=== PATIENT | female | born 1965 | race African-American/Black ===

== ENCOUNTER 2021-01-18 13:50 | Inpatient (IN) | payer OTHER ==
[2021-01-18] MEDS ORDERED: Acetaminophen 500 MG TAB ONE (15:36)
[2021-01-18 15:49] LABS: #Monocytes 0.3 10x3/uL (0.0-1.1); #Neutrophils 8.7 10x3/uL (1.5-8.4); %Basophils 0.1 % (0.0-2.0); %Lymphocytes 6.3 % (18.0-47.0); %Monocytes 3.5 % (0.0-10.0); %Neutrophils 89.5 % (40.0-75.0); Hemoglobin 8.5 g/dL (12.0-15.5); Mean Corpuscular HGB CONC 32.3 g/dL (32.0-36.0); Mean Corpuscular Hemoglobin 27.6 pg (27.0-33.0); Mean Corpuscular Volume 85.4 fl (81.6-98.3); Mean Platelet Volume 9.4 fl (7.4-10.4); Platelet Count 230 10x3/uL (150-450); RBC Distribution Width 14.4 % (11.5-14.5); Red Blood Cell (RBC) Count 3.08 10x6/uL (3.90-5.03); White Blood Cell (WBC) Count 9.8 10x3/uL (3.5-10.5)
[2021-01-18] MEDS ORDERED: Rocuronium Bromide 10 MG/ML (10ML VIAL) ONE (15:49)
[2021-01-18 16:00] LABS: ALT (SGPT) 85 U/L (8-55); AST (SGOT) 114 U/L (5-34); Albumin 3.4 g/dL (3.5-5.0); Alkaline Phosphatase 113 U/L (40-110); Anion Gap 21 mmol/L (10-20); BUN (Urea Nitrogen) 96 mg/dL (9.8-20.1); Bilirubin, Total 0.7 mg/dL (0.2-1.2); Calc. Creatinine Clearance 0 mL/min (70-130); Calcium 8.3 mg/dL (7.8-10.44); Carbon Dioxide 16 mmol/L (22-29); Chloride 100 mmol/L (98-107); Globulin 3.8 g/dL (2.4-3.5); Glucose 208 mg/dL (70-105); Potassium 4.4 mmol/L (3.5-5.1); Protein, Total 7.2 g/dL (6.0-8.3); Sodium 133 mmol/L (136-145)
[2021-01-18 16:23] LABS: CKMB 1.4 ng/mL (0-6.6)
[2021-01-18] MEDS ORDERED: cefTRIAXone\\ROCEPHIN 1 GM VIAL ONE (17:15)
[2021-01-18] MEDS ORDERED: Azithromycin 500 MG VIAL ONE (17:15)
[2021-01-18 17:20] LABS: Bilirubin Neg (Negative); Blood, Urine Negative (Negative); Clarity Cloudy (Clear); Glucose, Urine (Dipstick) Normal (Negative); Ketone, Urine Negative (Negative); Leukocyte 25 (Negative); Nitrite Negative (Negative); Protein, Urine (Dipstick) 500 mg/dl (Neg-Trace); Specific Gravity, Urine 1.025 (1.002-1.036); Urobilinogen Normal mg/dL (Less than 2)
[2021-01-18 18:02] LABS: SARS-CoV-2 NAA Rapid Test DETECTED (NotDetected)
[2021-01-18 18:19] LABS: Bacteria/HPF 1+ HPF (None Seen); RBC/HPF 0-3 HPF (0-3); Squamous Epithelial 0-3 HPF (0-3); Transitional Epithelial 0-3 HPF (None Seen); WBC/HPF 0-3 HPF (0-3)
[2021-01-18 18:20] LABS: Mucous/LPF Rare LPF (<2+)
[2021-01-18] MEDS ORDERED: Calcium Carbonate 500 MG ChewTAB PO PRN (20:25)
[2021-01-18] MEDS ORDERED: Guaifenesin DM 100-10/5 ML UDCUP PO PRN (20:25)
[2021-01-18] MEDS ORDERED: Dextrose 5% in Water 1,000 ML IV PRN (20:25)
[2021-01-18] MEDS ORDERED: Zolpidem Tartrate 5 MG TAB PO PRN (20:25)
[2021-01-18] MEDS ORDERED: Senokot S 8.6-50 MG TAB PO PRN (20:25)
[2021-01-18] MEDS ORDERED: HYDROcodone/Acetaminophen 5/325 mg Tablet PO PRN (20:25)
[2021-01-18] MEDS ORDERED: Ondansetron PF 4 MG/2 ML Vial IVP PRN (20:25)
[2021-01-18] MEDS ORDERED: Ventolin HFA Inhaler 60 PUFF INHALER INH PRN (20:32)
[2021-01-18] MEDS ORDERED: Dexamethasone 10 MG/ML VIAL ONE (21:08)
[2021-01-18] MEDS ORDERED: Sodium Bicarbonate 75 MEQ in Sodium Chloride 0.45% 1,000 ML IV SCH (22:30)
[2021-01-18] MEDS ORDERED: Dexamethasone 4 mg/ml Vial SLOW IVP SCH (22:30)
[2021-01-18 23:46] LABS: CKMB 2.5 ng/mL (0-6.6)
[2021-01-19 00:35] LABS: Legionella Urinary Ag Negative (Negative)
[2021-01-19 00:36] LABS: Strep pneumo Urine Ag NEGATIVE (NEGATIVE)
[2021-01-19 04:39] LABS: ALT (SGPT) 90 U/L (8-55); AST (SGOT) 115 U/L (5-34); Albumin 3.1 g/dL (3.5-5.0); Alkaline Phosphatase 107 U/L (40-110); Anion Gap 21 mmol/L (10-20); BUN (Urea Nitrogen) 99 mg/dL (9.8-20.1); Bilirubin, Total 0.6 mg/dL (0.2-1.2); CK (CPK) 248 U/L (29-168); CRP (Inflammatory) 21.39 mg/dL (= or < 0.5); Calc. Creatinine Clearance 0 mL/min (70-130); Calcium 8.7 mg/dL (7.8-10.44); Carbon Dioxide 14 mmol/L (22-29); Chloride 103 mmol/L (98-107); Cholesterol 113 mg/dl (< 200 Desired); Glucose 287 mg/dL (70-105); HDL Cholesterol 38 mg/dL (>60 Neg Risk); Iron 16 ug/dL (50-170); Iron Binding Capacity, Total 176 mcg/dL (265-497); LDL Cholesterol, Calculated 51 mg/dL; Potassium 4.4 mmol/L (3.5-5.1); Sodium 134 mmol/L (136-145); Triglycerides 119 mg/dL (Less than 150)
[2021-01-19 04:44] LABS: #Monocytes 0.3 10x3/uL (0.0-1.1); #Neutrophils 10.3 10x3/uL (1.5-8.4); %Basophils 0.1 % (0.0-2.0); %Lymphocytes 5.1 % (18.0-47.0); %Monocytes 2.5 % (0.0-10.0); %Neutrophils 91.6 % (40.0-75.0); Hemoglobin 8.2 g/dL (12.0-15.5); Mean Corpuscular HGB CONC 32.2 g/dL (32.0-36.0); Mean Corpuscular Hemoglobin 27.3 pg (27.0-33.0); Mean Platelet Volume 10.1 fl (7.4-10.4); Platelet Count 249 10x3/uL (150-450); RBC Distribution Width 14.4 % (11.5-14.5); White Blood Cell (WBC) Count 11.2 10x3/uL (3.5-10.5)
[2021-01-19 05:01] LABS: Globulin 4.2 g/dL (2.4-3.5); Protein, Total 7.3 g/dL (6.0-8.3)
[2021-01-19] MEDS ORDERED: Sodium Bicarbonate 150 MEQ in Sterile Water Injection 1,000 ML IV SCH (05:30)
[2021-01-19 05:31] LABS: Ferritin 2963.35 ng/mL (10-291)
[2021-01-19 07:09] LABS: CKMB 3.4 ng/mL (0-6.6)
[2021-01-19 09:51] LABS: Actual Bicarbonate (HCO3v) 15 mEq/L (22-28); Base Excess -10.4 mEq/L (-2.0 to +3.0); Calcium, Ionized (venous) 1.03 mmol/L (1.16-1.32); Chloride (VBG) 103 mmol/L (98-106); Hemoglobin (Hb) 9.2 g/dL (11.7-16.0); Potassium (VBG) 4.27 mmol/L (3.70-5.30); Puncture Site Other Site; RapidComm Collect By CBN; Sodium 131.5 mmol/L (133-146); pH (venous) 7.31 (7.32-7.43)
[2021-01-19 11:26] LABS: Hemoglobin A1c 5.5 % (4.0-6.0)
[2021-01-19] MEDS ORDERED: Iron Sucrose Complex 100 MG in Sodium Chloride 0.9% 100 ML IVPB SCH (12:30)
[2021-01-19] MEDS ORDERED: Insulin Regular 300 UNITS/3 ML VIAL IVP SCH (13:00)
[2021-01-19] MEDS: Heparin 5,000 UNITS/ML VIAL SC SCH ×4 (13:25→20:21)
[2021-01-19] MEDS: Atorvastatin Calcium 10 MG TAB PO SCH ×2 (13:25→20:21)
[2021-01-19] MEDS: Lantus 1000 UNITS/10 ML VIAL SC SCH ×2 (13:25→23:07)
[2021-01-19] MEDS: Nicotine 21 MG PATCH TD SCH ×2 (13:26→23:12)
[2021-01-19] MEDS: Sodium Bicarbonate Tab 325 MG TAB PO SCH ×4 (13:26→20:21)
[2021-01-19 14:40] LABS: Creatinine, Urine 246.04 mg/dL (47-110)
[2021-01-19] MEDS: Aspirin 81 mg Enteric Coated Tablet PO SCH (15:49)
[2021-01-19] MEDS: Ascorbic Acid 500 mg Chewable Tablet PO SCH (15:49)
[2021-01-19] MEDS: Dexamethasone 4 mg/ml Vial SLOW IVP SCH (15:49)
[2021-01-19] MEDS: Cholecalciferol 1,000 UNITS (25 MCG) TAB PO SCH (15:49)
[2021-01-19] MEDS: Folic Acid/Vit B Comp W-C PO SCH (15:49)
[2021-01-19] MEDS ORDERED: Iron, Sodium Ferric Gluconate 125 MG in Sodium Chloride 0.9% 100 ML IVPB SCH (17:00)
[2021-01-19] MEDS: HumaLOG 300 UNITS/3 ML VIAL SC PRN ×2 (17:12→23:08)
[2021-01-20] MEDS: HumaLOG 300 UNITS/3 ML VIAL SC PRN ×4 (04:00→22:36)
[2021-01-20 06:25] LABS: Hemoglobin 8.4 g/dL (12.0-15.5); Mean Corpuscular HGB CONC 32.3 g/dL (32.0-36.0); Mean Corpuscular Hemoglobin 27.1 pg (27.0-33.0); Mean Corpuscular Volume 83.9 fl (81.6-98.3); Mean Platelet Volume 10.2 fl (7.4-10.4); Platelet Count 309 10x3/uL (150-450); RBC Distribution Width 14.2 % (11.5-14.5); White Blood Cell (WBC) Count 14.8 10x3/uL (3.5-10.5)
[2021-01-20 06:30] LABS: ALT (SGPT) 77 U/L (8-55); AST (SGOT) 66 U/L (5-34); Alkaline Phosphatase 121 U/L (40-110); Anion Gap 20 mmol/L (10-20); BUN (Urea Nitrogen) 113 mg/dL (9.8-20.1); Bilirubin, Total 0.4 mg/dL (0.2-1.2); CRP (Inflammatory) 19.26 mg/dL (= or < 0.5); Calc. Creatinine Clearance 11 mL/min (70-130); Calcium 8.8 mg/dL (7.8-10.44); Carbon Dioxide 15 mmol/L (22-29); Chloride 101 mmol/L (98-107); Globulin 4.2 g/dL (2.4-3.5); Glucose 464 mg/dL (70-105); Potassium 3.8 mmol/L (3.5-5.1); Protein, Total 7.2 g/dL (6.0-8.3); Sodium 132 mmol/L (136-145)
[2021-01-20 08:33] LABS: MDiff Complete? YES
[2021-01-20 08:36] LABS: Band 2 % (5-11); Lymphocytes 7 % (21-51); Monocytes 2 % (0-10); Neutrophil 89 % (42-75)
[2021-01-20 08:37] LABS: Platelet Morphology Comment Appears Adequate
[2021-01-20] MEDS ORDERED: Lantus 1000 UNITS/10 ML VIAL SC SCH (10:15)
[2021-01-20] MEDS: Sodium Bicarbonate 150 MEQ in Sterile Water Injection 1,000 ML IV SCH (10:17)
[2021-01-20] MEDS: Ascorbic Acid 500 mg Chewable Tablet PO SCH (10:18)
[2021-01-20] MEDS: Aspirin 81 mg Enteric Coated Tablet PO SCH (10:18)
[2021-01-20] MEDS: Dexamethasone 4 mg/ml Vial SLOW IVP SCH (10:18)
[2021-01-20] MEDS: Cholecalciferol 1,000 UNITS (25 MCG) TAB PO SCH (10:18)
[2021-01-20] MEDS: Sodium Bicarbonate Tab 325 MG TAB PO SCH ×3 (10:18→22:34)
[2021-01-20] MEDS: Heparin 5,000 UNITS/ML VIAL SC SCH ×3 (10:19→22:33)
[2021-01-20] MEDS: Folic Acid/Vit B Comp W-C PO SCH (10:19)
[2021-01-20 17:51] LABS: Hemoglobin 9.3 g/dL (12.0-15.5); Mean Corpuscular HGB CONC 33.7 g/dL (32.0-36.0); Mean Corpuscular Hemoglobin 27.5 pg (27.0-33.0); Mean Corpuscular Volume 81.7 fl (81.6-98.3); Platelet Count 323 10x3/uL (150-450); RBC Distribution Width 13.6 % (11.5-14.5); Red Blood Cell (RBC) Count 3.38 10x6/uL (3.90-5.03); White Blood Cell (WBC) Count 18.6 10x3/uL (3.5-10.5)
[2021-01-20 18:08] LABS: ALT (SGPT) 81 U/L (8-55); AST (SGOT) 70 U/L (5-34); Albumin 3.2 g/dL (3.5-5.0); Alkaline Phosphatase 129 U/L (40-110); Anion Gap 23 mmol/L (10-20); BUN (Urea Nitrogen) 113 mg/dL (9.8-20.1); Bilirubin, Total 0.5 mg/dL (0.2-1.2); Calc. Creatinine Clearance 11 mL/min (70-130); Calcium 9.1 mg/dL (7.8-10.44); Carbon Dioxide 17 mmol/L (22-29); Chloride 97 mmol/L (98-107); Globulin 4.8 g/dL (2.4-3.5); Glucose 497 mg/dL (70-105); Magnesium 1.8 mg/dL (1.6-2.6); Potassium 3.9 mmol/L (3.5-5.1); Sodium 133 mmol/L (136-145)
[2021-01-20 20:17] LABS: Band 11 % (5-11); Lymphocytes 6 % (21-51); Monocytes 2 % (0-10)
[2021-01-20 20:18] LABS: MDiff Complete? YES; Mean Platelet Volume 10.3 fl (7.4-10.4)
[2021-01-20 20:19] LABS: Neutrophil 81 % (42-75); Platelet Morphology Comment Appears Adequate
[2021-01-20] MEDS: Atorvastatin Calcium 10 MG TAB PO SCH (22:34)
[2021-01-20] MEDS: Lantus 1000 UNITS/10 ML VIAL SC SCH (22:35)
[2021-01-21] MEDS: HumaLOG 300 UNITS/3 ML VIAL SC PRN ×3 (05:28→18:07)
[2021-01-21] MEDS: Sodium Bicarbonate 150 MEQ in Sterile Water Injection 1,000 ML IV SCH (05:29)
[2021-01-21] MEDS: Nicotine 21 MG PATCH TD SCH (06:14)
[2021-01-21] MEDS: Dexamethasone 4 mg/ml Vial SLOW IVP SCH (09:55)
[2021-01-21] MEDS: Heparin 5,000 UNITS/ML VIAL SC SCH ×3 (09:55→20:39)
[2021-01-21] MEDS: Aspirin 81 mg Enteric Coated Tablet PO SCH (09:57)
[2021-01-21] MEDS: Ascorbic Acid 500 mg Chewable Tablet PO SCH (09:57)
[2021-01-21] MEDS: Cholecalciferol 1,000 UNITS (25 MCG) TAB PO SCH (09:57)
[2021-01-21] MEDS: Lantus 1000 UNITS/10 ML VIAL SC SCH ×2 (09:58→21:31)
[2021-01-21] MEDS: Sodium Bicarbonate Tab 325 MG TAB PO SCH ×3 (09:59→20:38)
[2021-01-21] MEDS: Folic Acid/Vit B Comp W-C PO SCH (10:04)
[2021-01-21 16:31] LABS: ALT (SGPT) 78 U/L (8-55); AST (SGOT) 71 U/L (5-34); Albumin 2.8 g/dL (3.5-5.0); Alkaline Phosphatase 134 U/L (40-110); Anion Gap 20 mmol/L (10-20); BUN (Urea Nitrogen) 110 mg/dL (9.8-20.1); Bilirubin, Total 0.6 mg/dL (0.2-1.2); Calc. Creatinine Clearance 12 mL/min (70-130); Calcium 8.8 mg/dL (7.8-10.44); Carbon Dioxide 22 mmol/L (22-29); Chloride 96 mmol/L (98-107); Globulin 4.4 g/dL (2.4-3.5); Glucose 225 mg/dL (70-105); Magnesium 1.6 mg/dL (1.6-2.6); Potassium 3.4 mmol/L (3.5-5.1); Protein, Total 7.2 g/dL (6.0-8.3); Sodium 135 mmol/L (136-145)
[2021-01-21 17:05] LABS: Hemoglobin 8.4 g/dL (12.0-15.5); Mean Corpuscular HGB CONC 33.7 g/dL (32.0-36.0); Mean Corpuscular Hemoglobin 27.4 pg (27.0-33.0); Mean Corpuscular Volume 81.1 fl (81.6-98.3); Mean Platelet Volume 10.3 fl (7.4-10.4); Platelet Count 311 10x3/uL (150-450); RBC Distribution Width 13.6 % (11.5-14.5); Red Blood Cell (RBC) Count 3.07 10x6/uL (3.90-5.03); White Blood Cell (WBC) Count 20.9 10x3/uL (3.5-10.5)
[2021-01-21 18:48] LABS: MDiff Complete? YES
[2021-01-21 18:51] LABS: Band 13 % (5-11); Lymphocytes 4 % (21-51)
[2021-01-21 18:53] LABS: Monocytes 2 % (0-10)
[2021-01-21 18:54] LABS: Myelocyte 2 % (0-0); Neutrophil 79 % (42-75)
[2021-01-21 18:55] LABS: Platelet Morphology Comment Appears Adequate
[2021-01-21] MEDS: Atorvastatin Calcium 10 MG TAB PO SCH (20:38)
[2021-01-22] MEDS: Nicotine 21 MG PATCH TD SCH ×2 (06:30→23:41)
[2021-01-22] MEDS: Iron, Sodium Ferric Gluconate 125 MG in Sodium Chloride 0.9% 100 ML IVPB SCH (07:27)
[2021-01-22] MEDS: Heparin 5,000 UNITS/ML VIAL SC SCH (07:28)
[2021-01-22] MEDS: Sodium Bicarbonate Tab 325 MG TAB PO SCH ×3 (07:29→21:59)
[2021-01-22] MEDS: Cholecalciferol 1,000 UNITS (25 MCG) TAB PO SCH (07:29)
[2021-01-22] MEDS: Aspirin 81 mg Enteric Coated Tablet PO SCH (07:29)
[2021-01-22] MEDS: Dexamethasone 4 mg/ml Vial SLOW IVP SCH (07:29)
[2021-01-22] MEDS: Ascorbic Acid 500 mg Chewable Tablet PO SCH (07:29)
[2021-01-22] MEDS: Lantus 1000 UNITS/10 ML VIAL SC SCH ×2 (07:30→23:27)
[2021-01-22] MEDS: Iron Sucrose Complex 100 MG in Sodium Chloride 0.9% 100 ML IVPB SCH ×2 (07:45→09:12)
[2021-01-22 07:52] LABS: Albumin 2.7 g/dL (3.5-5.0); Anion Gap 21 mmol/L (10-20); BUN (Urea Nitrogen) 115 mg/dL (9.8-20.1); BUN/Creatinine Ratio 17.58; Calc. Creatinine Clearance 12 mL/min (70-130); Carbon Dioxide 22 mmol/L (22-29); Chloride 100 mmol/L (98-107); Glucose 177 mg/dL (70-105); Phosphorus 3.8 mg/dL (2.3-4.7); Potassium 3.3 mmol/L (3.5-5.1); Sodium 140 mmol/L (136-145)
[2021-01-22] MEDS: HumaLOG 300 UNITS/3 ML VIAL SC PRN ×3 (09:12→22:20)
[2021-01-22] MEDS: Folic Acid/Vit B Comp W-C PO SCH (10:30)
[2021-01-22 11:35] LABS: Actual Bicarbonate (HCO3a) 27.2 mEq/L (22-28); Base Excess (BEa) 4.1 mEq/L (-2.0 to +3.0); CO2 Tension 34.6 mmHg (35.0-45.0); Carboxyhemoglobin (COHb) 0.5 gm% (0.0-3.0); Hemoglobin (Hb) 8.3 g/dL (12.0-16.0); O2 Tension (PaO2), arterial 84.2 mmHg (80.0-100.0); Potassium - ABG Lab 3.2 mmol/L (3.70-5.30); Puncture Site LRA; pH, Arterial 7.51 (7.35-7.45)
[2021-01-22 14:07] LABS: Actual Bicarbonate (HCO3a) 25.9 mEq/L (22-28); Base Excess (BEa) 3.4 mEq/L (-2.0 to +3.0); Carboxyhemoglobin (COHb) 0.8 gm% (0.0-3.0); Hemoglobin (Hb) 8.3 g/dL (12.0-16.0); O2 Tension (PaO2), arterial 49.3 mmHg (80.0-100.0); Potassium - ABG Lab 3.4 mmol/L (3.70-5.30); Puncture Site LRA; pH, Arterial 7.54 (7.35-7.45)
[2021-01-22] MEDS ORDERED: Heparin 10,000 UNITS/ 10 ML VIAL SLOW IVP SCH (14:15)
[2021-01-22] MEDS: EPOETIN ALFA-EPBX (ESRD) 2,000 UNIT/ML VIAL SC SCH (14:23)
[2021-01-22] MEDS ORDERED: Furosemide 40 MG/4 ML VIAL SLOW IVP SCH (14:45)
[2021-01-22] MEDS: Heparin 25,000 units/D5W 500 ML IVPB SCH (15:25)
[2021-01-22] MEDS: methylPREDNISolone Sod Succ/PF 125 MG/2 ML VIAL IVP SCH ×2 (18:19→23:32)
[2021-01-22] MEDS ORDERED: Dexamethasone 4 mg/ml Vial SLOW IVP SCH (21:00)
[2021-01-22] MEDS ORDERED: Enoxaparin Sodium 80 MG/0.8 ML SYRINGE SC SCH (21:00)
[2021-01-22 21:58] LABS: Hemoglobin 8.1 g/dL (12.0-15.5); Platelet Count 290 10x3/uL (150-450)
[2021-01-22] MEDS: Atorvastatin Calcium 10 MG TAB PO SCH (21:59)
[2021-01-22 22:15] LABS: Anion Gap 23 mmol/L (10-20); BUN (Urea Nitrogen) 121 mg/dL (9.8-20.1); Calc. Creatinine Clearance 12 mL/min (70-130); Calcium 8.8 mg/dL (7.8-10.44); Carbon Dioxide 22 mmol/L (22-29); Chloride 100 mmol/L (98-107); Glucose 204 mg/dL (70-105); Sodium 141 mmol/L (136-145)
[2021-01-22 22:28] LABS: PTT 92.6 sec (22.0-33.0)
[2021-01-23] MEDS: methylPREDNISolone Sod Succ/PF 125 MG/2 ML VIAL IVP SCH ×3 (05:52→18:17)
[2021-01-23] MEDS: Furosemide 40 MG/4 ML VIAL SLOW IVP SCH ×2 (05:52→15:16)
[2021-01-23 07:35] LABS: Puncture Site RRA; pH, Arterial 7.52 (7.35-7.45)
[2021-01-23 07:41] LABS: ALT (SGPT) 57 U/L (8-55); AST (SGOT) 50 U/L (5-34); Albumin 2.7 g/dL (3.5-5.0); Alkaline Phosphatase 151 U/L (40-110); Anion Gap 23 mmol/L (10-20); BUN (Urea Nitrogen) 125 mg/dL (9.8-20.1); BUN/Creatinine Ratio 19.26; Bilirubin, Total 0.7 mg/dL (0.2-1.2); Calc. Creatinine Clearance 12 mL/min (70-130); Calcium 8.8 mg/dL (7.8-10.44); Carbon Dioxide 21 mmol/L (22-29); Chloride 101 mmol/L (98-107); Globulin 4.1 g/dL (2.4-3.5); Glucose 184 mg/dL (70-105); Phosphorus 4.1 mg/dL (2.3-4.7); Potassium 3.4 mmol/L (3.5-5.1); Protein, Total 6.8 g/dL (6.0-8.3); Sodium 142 mmol/L (136-145)
[2021-01-23] MEDS: Cholecalciferol 1,000 UNITS (25 MCG) TAB PO SCH (08:14)
[2021-01-23] MEDS: Ascorbic Acid 500 mg Chewable Tablet PO SCH (08:14)
[2021-01-23] MEDS: Heparin 25,000 units/D5W 500 ML IVPB SCH (08:14)
[2021-01-23] MEDS: Aspirin 81 mg Enteric Coated Tablet PO SCH (08:15)
[2021-01-23] MEDS: Lantus 1000 UNITS/10 ML VIAL SC SCH ×2 (08:16→20:30)
[2021-01-23] MEDS: Sodium Bicarbonate Tab 325 MG TAB PO SCH ×3 (08:19→20:29)
[2021-01-23] MEDS ORDERED: Lantus 1000 UNITS/10 ML VIAL SC SCH (09:45)
[2021-01-23] MEDS ORDERED: Potassium Chloride 40 MEQ in Premix Bag 1 BAG IVPB SCH (09:45)
[2021-01-23] MEDS ORDERED: Acetaminophen 500 MG TAB PO PRN (10:04)
[2021-01-23] MEDS ORDERED: Artificial Tear Sol 15 ML BOT EA EYE PRN (10:04)
[2021-01-23] MEDS ORDERED: Acetaminophen 650 MG Suppository PR PRN (10:04)
[2021-01-23] MEDS: Folic Acid/Vit B Comp W-C PO SCH (10:14)
[2021-01-23] MEDS ORDERED: Amlodipine 5 MG TAB PO SCH (10:30)
[2021-01-23 10:46] LABS: ALV-art Gradient 573.375 mmHg (0-20); Actual Bicarbonate (HCO3a) 49.8 mEq/L (22-28); Base Excess (BEa) 22.6 mEq/L (-2.0 to +3.0); CO2 Tension 62.1 mmHg (35.0-45.0); Calcium, Ionized (arterial) 1.09 mmol/L (1.12-1.30); Carboxyhemoglobin (COHb) 0.8 gm% (0.0-3.0); Hemoglobin (Hb) 14.8 g/dL (12.0-16.0); Potassium - ABG Lab 3.1 mmol/L (3.70-5.30)
[2021-01-23] MEDS ORDERED: Tocilizumab 800 MG in Sodium Chloride 0.9% 100 ML IV SCH (11:00)
[2021-01-23 11:40] LABS: Hemoglobin 7.6 g/dL (12.0-15.5); Mean Corpuscular HGB CONC 33.6 g/dL (32.0-36.0); Mean Corpuscular Hemoglobin 27.4 pg (27.0-33.0); Mean Corpuscular Volume 81.6 fl (81.6-98.3); Mean Platelet Volume 11.2 fl (7.4-10.4); Platelet Count 284 10x3/uL (150-450); RBC Distribution Width 13.6 % (11.5-14.5); Red Blood Cell (RBC) Count 2.77 10x6/uL (3.90-5.03); White Blood Cell (WBC) Count 21.3 10x3/uL (3.5-10.5)
[2021-01-23 12:02] LABS: MDiff Complete? YES
[2021-01-23 12:07] LABS: Band 7 % (5-11); Lymphocytes 5 % (21-51); Metamyelocyte 1 % (0-0); Monocytes 2 % (0-10); Neutrophil 85 % (42-75)
[2021-01-23 12:13] LABS: Hypochromia SLIGHT = 6-15 cells (100X) (0-5/hpf); Platelet Morphology Comment Appears Adequate; Polychromasia SLIGHT = 2-3 cells (100X) (0-2/hpf); Vacuoles SLIGHT
[2021-01-23] MEDS: HumaLOG 300 UNITS/3 ML VIAL SC PRN ×2 (12:32→18:20)
[2021-01-23 15:01] LABS: PTT 134.7 sec (22.0-33.0)
[2021-01-23 17:50] LABS: Albumin 2.5 g/dL (3.5-5.0); Anion Gap 22 mmol/L (10-20); Calc. Creatinine Clearance 12 mL/min (70-130); Carbon Dioxide 22 mmol/L (22-29); Chloride 101 mmol/L (98-107); Glucose 291 mg/dL (70-105); Phosphorus 3.8 mg/dL (2.3-4.7); Sodium 141 mmol/L (136-145)
[2021-01-23 17:59] LABS: BUN (Urea Nitrogen) 126 mg/dL (9.8-20.1); BUN/Creatinine Ratio 19.53
[2021-01-23] MEDS: Lactated Ringer's 1,000 ML IV SCH (18:19)
[2021-01-23] MEDS: Atorvastatin Calcium 10 MG TAB PO SCH (20:29)
[2021-01-23] MEDS: Pantoprazole 40 MG VIAL IVP SCH (20:29)
[2021-01-23] MEDS: Nicotine 21 MG PATCH TD SCH (23:43)
[2021-01-24] MEDS: HumaLOG 300 UNITS/3 ML VIAL SC PRN ×3 (00:06→13:46)
[2021-01-24] MEDS: methylPREDNISolone Sod Succ/PF 125 MG/2 ML VIAL IVP SCH ×4 (01:09→18:24)
[2021-01-24 02:55] LABS: Mean Corpuscular HGB CONC 33.9 g/dL (32.0-36.0); Mean Corpuscular Hemoglobin 27.1 pg (27.0-33.0); Mean Corpuscular Volume 80.1 fl (81.6-98.3); Mean Platelet Volume 10.8 fl (7.4-10.4); Platelet Count 258 10x3/uL (150-450); RBC Distribution Width 13.5 % (11.5-14.5); Red Blood Cell (RBC) Count 2.21 10x6/uL (3.90-5.03); White Blood Cell (WBC) Count 22.7 10x3/uL (3.5-10.5)
[2021-01-24 03:09] LABS: CRP (Inflammatory) 20.77 mg/dL (= or < 0.5); Magnesium 1.6 mg/dL (1.6-2.6)
[2021-01-24 03:11] LABS: ALT (SGPT) 42 U/L (8-55); AST (SGOT) 36 U/L (5-34); Albumin 2.2 g/dL (3.5-5.0); Alkaline Phosphatase 130 U/L (40-110); Anion Gap 25 mmol/L (10-20); Bilirubin, Total 0.6 mg/dL (0.2-1.2); Calc. Creatinine Clearance 12 mL/min (70-130); Calcium 8.8 mg/dL (7.8-10.44); Carbon Dioxide 20 mmol/L (22-29); Chloride 102 mmol/L (98-107); Glucose 243 mg/dL (70-105); Phosphorus 4.5 mg/dL (2.3-4.7); Potassium 3.8 mmol/L (3.5-5.1); Protein, Total 6.2 g/dL (6.0-8.3); Sodium 143 mmol/L (136-145)
[2021-01-24 03:16] LABS: MDiff Complete? YES
[2021-01-24 03:19] LABS: Band 5 % (5-11); Lymphocytes 6 % (21-51); Monocytes 5 % (0-10); Neutrophil 84 % (42-75)
[2021-01-24 03:20] LABS: Hypochromia MARKED = >30 cells (100X) (0-5/hpf); Microcytosis MARKED = >30 cells (100X) (0-5/hpf)
[2021-01-24 03:21] LABS: Platelet Morphology Comment Appears Adequate
[2021-01-24 03:26] LABS: BUN (Urea Nitrogen) 137 mg/dL (9.8-20.1)
[2021-01-24] MEDS: Heparin 25,000 units/D5W 500 ML IVPB SCH (05:42)
[2021-01-24] MEDS: Lactated Ringer's 1,000 ML IV SCH (06:32)
[2021-01-24] MEDS: Polyethylene Glycol 3350 17 GM Packet PO SCH (09:21)
[2021-01-24] MEDS: Cholecalciferol 1,000 UNITS (25 MCG) TAB PO SCH (09:22)
[2021-01-24] MEDS: Amlodipine 5 MG TAB PO SCH (09:22)
[2021-01-24] MEDS: Ascorbic Acid 500 mg Chewable Tablet PO SCH (09:22)
[2021-01-24] MEDS: Aspirin 81 mg Enteric Coated Tablet PO SCH (09:22)
[2021-01-24] MEDS: Pantoprazole 40 MG VIAL IVP SCH ×2 (09:22→21:42)
[2021-01-24] MEDS: Sodium Bicarbonate Tab 325 MG TAB PO SCH ×3 (09:22→21:42)
[2021-01-24] MEDS ORDERED: Lantus 1000 UNITS/10 ML VIAL SC SCH (09:30)
[2021-01-24] MEDS: Folic Acid/Vit B Comp W-C PO SCH (09:30)
[2021-01-24] MEDS: Lantus 1000 UNITS/10 ML VIAL SC SCH ×2 (09:36→21:43)
[2021-01-24 10:12] LABS: Hemoglobin 5.2 g/dL (12.0-15.5); Platelet Count 235 10x3/uL (150-450)
[2021-01-24] MEDS: Iron, Sodium Ferric Gluconate 125 MG in Sodium Chloride 0.9% 100 ML IVPB SCH (11:13)
[2021-01-24 11:28] LABS: Glucose 255 mg/dL (70-105)
[2021-01-24] MEDS: Azithromycin 500 MG in Sodium Chloride 0.9% 250 ML 250 ML IVPB SCH (13:44)
[2021-01-24] MEDS: cefTRIAXone\\ROCEPHIN 1 GM in Sodium Chloride 0.9% 100 ML IVPB SCH (13:44)
[2021-01-24] MEDS: Atorvastatin Calcium 10 MG TAB PO SCH (21:42)
[2021-01-24 22:21] LABS: Hemoglobin 7.8 g/dL (12.0-15.5); Platelet Count 228 10x3/uL (150-450)
[2021-01-25] MEDS: methylPREDNISolone Sod Succ/PF 125 MG/2 ML VIAL IVP SCH ×5 (00:30→23:04)
[2021-01-25] MEDS: Nicotine 21 MG PATCH TD SCH ×2 (00:34→22:33)
[2021-01-25 01:13] LABS: Glucose 325 mg/dL (70-105)
[2021-01-25] MEDS: HumaLOG 300 UNITS/3 ML VIAL SC PRN ×4 (01:15→22:55)
[2021-01-25] MEDS: Lactated Ringer's 1,000 ML IV SCH ×4 (03:03→23:04)
[2021-01-25 04:47] LABS: ALT (SGPT) 41 U/L (8-55); AST (SGOT) 31 U/L (5-34); Albumin 2.4 g/dL (3.5-5.0); Alkaline Phosphatase 128 U/L (40-110); Anion Gap 25 mmol/L (10-20); Bilirubin, Total 0.5 mg/dL (0.2-1.2); Calc. Creatinine Clearance 12 mL/min (70-130); Calcium 8.7 mg/dL (7.8-10.44); Carbon Dioxide 19 mmol/L (22-29); Chloride 108 mmol/L (98-107); Globulin 3.5 g/dL (2.4-3.5); Glucose 245 mg/dL (70-105); Phosphorus 4.9 mg/dL (2.3-4.7); Potassium 3.9 mmol/L (3.5-5.1); Protein, Total 5.9 g/dL (6.0-8.3); Sodium 148 mmol/L (136-145)
[2021-01-25 04:52] LABS: Hemoglobin 7.6 g/dL (12.0-15.5); Mean Corpuscular HGB CONC 34.9 g/dL (32.0-36.0); Mean Corpuscular Hemoglobin 29.8 pg (27.0-33.0); Mean Corpuscular Volume 85.5 fl (81.6-98.3); Mean Platelet Volume 10.7 fl (7.4-10.4); Platelet Count 233 10x3/uL (150-450); RBC Distribution Width 14.5 % (11.5-14.5); Red Blood Cell (RBC) Count 2.55 10x6/uL (3.90-5.03); White Blood Cell (WBC) Count 25.6 10x3/uL (3.5-10.5)
[2021-01-25 04:58] LABS: BUN (Urea Nitrogen) 161 mg/dL (9.8-20.1); BUN/Creatinine Ratio 25.08
[2021-01-25 05:11] LABS: MDiff Complete? YES
[2021-01-25 05:17] LABS: Band 8 % (5-11); Lymphocytes 5 % (21-51); Metamyelocyte 6 % (0-0); Monocytes 5 % (0-10); Neutrophil 74 % (42-75); Nucleated RBC 2 % (0); Promyelocytes 2 % (0-0)
[2021-01-25 05:20] LABS: Hypochromia MARKED = >30 cells (100X) (0-5/hpf)
[2021-01-25 05:21] LABS: Target Cells MODERATE= 6-15 cells (100X) (0-1/hpf)
[2021-01-25 05:22] LABS: Platelet Morphology Comment Appears Adequate
[2021-01-25] MEDS: Ascorbic Acid 500 mg Chewable Tablet PO SCH (08:42)
[2021-01-25] MEDS: Pantoprazole 40 MG VIAL IVP SCH ×2 (08:42→20:48)
[2021-01-25] MEDS: Sodium Bicarbonate Tab 325 MG TAB PO SCH ×3 (08:42→20:48)
[2021-01-25] MEDS: Aspirin 81 mg Enteric Coated Tablet PO SCH (08:43)
[2021-01-25] MEDS: Cholecalciferol 1,000 UNITS (25 MCG) TAB PO SCH (08:43)
[2021-01-25] MEDS: Folic Acid/Vit B Comp W-C PO SCH (08:43)
[2021-01-25] MEDS: Amlodipine 5 MG TAB PO SCH (08:43)
[2021-01-25] MEDS: Polyethylene Glycol 3350 17 GM Packet PO SCH (08:45)
[2021-01-25] MEDS: Lantus 1000 UNITS/10 ML VIAL SC SCH ×3 (08:45→22:56)
[2021-01-25] MEDS: Labetalol HCl 100 MG/20 ML VIAL SLOW IVP PRN ×2 (08:53→16:16)
[2021-01-25 08:59] LABS: Glucose 187 mg/dL (70-105)
[2021-01-25 09:07] LABS: Actual Bicarbonate (HCO3a) 25.5 mEq/L (22-28); Base Excess (BEa) 2.4 mEq/L (-2.0 to +3.0); CO2 Tension 32.7 mmHg (35.0-45.0); Calcium, Ionized (arterial) 1.04 mmol/L (1.12-1.30); Carboxyhemoglobin (COHb) 0.2 gm% (0.0-3.0); Hemoglobin (Hb) 7.5 g/dL (12.0-16.0); O2 Tension (PaO2), arterial 46.9 mmHg (80.0-100.0); Potassium - ABG Lab 3.8 mmol/L (3.70-5.30); Puncture Site RRA; pH, Arterial 7.51 (7.35-7.45)
[2021-01-25 09:11] LABS: ALV-art Gradient 233.075 mmHg (0-20)
[2021-01-25] MEDS: Labetalol 100 MG TAB PO SCH ×2 (11:35→20:00)
[2021-01-25] MEDS: Azithromycin 500 MG in Sodium Chloride 0.9% 250 ML 250 ML IVPB SCH (11:38)
[2021-01-25] MEDS: cefTRIAXone\\ROCEPHIN 1 GM in Sodium Chloride 0.9% 100 ML IVPB SCH (11:39)
[2021-01-25] MEDS: hydrALAZINE 20 MG/ML VIAL SLOW IVP PRN (20:00)
[2021-01-25] MEDS: Atorvastatin Calcium 10 MG TAB PO SCH (20:49)
[2021-01-26 04:39] LABS: ALT (SGPT) 47 U/L (8-55); AST (SGOT) 31 U/L (5-34); Albumin 2.6 g/dL (3.5-5.0); Alkaline Phosphatase 128 U/L (40-110); Anion Gap 22 mmol/L (10-20); Bilirubin, Total 0.5 mg/dL (0.2-1.2); Calc. Creatinine Clearance 13 mL/min (70-130); Calcium 8.8 mg/dL (7.8-10.44); Carbon Dioxide 21 mmol/L (22-29); Chloride 112 mmol/L (98-107); Globulin 3.2 g/dL (2.4-3.5); Glucose 290 mg/dL (70-105); Phosphorus 4.5 mg/dL (2.3-4.7); Potassium 4.1 mmol/L (3.5-5.1); Protein, Total 5.8 g/dL (6.0-8.3); Sodium 151 mmol/L (136-145)
[2021-01-26] MEDS: HumaLOG 300 UNITS/3 ML VIAL SC PRN ×2 (04:45→10:29)
[2021-01-26 04:50] LABS: BUN (Urea Nitrogen) 178 mg/dL (9.8-20.1); BUN/Creatinine Ratio 28.03
[2021-01-26 05:43] LABS: Hemoglobin 6.8 g/dL (12.0-15.5); Mean Corpuscular HGB CONC 34.2 g/dL (32.0-36.0); Mean Corpuscular Hemoglobin 29.4 pg (27.0-33.0); Mean Corpuscular Volume 86.1 fl (81.6-98.3); Mean Platelet Volume 10.7 fl (7.4-10.4); Platelet Count 273 10x3/uL (150-450); RBC Distribution Width 14.9 % (11.5-14.5); Red Blood Cell (RBC) Count 2.31 10x6/uL (3.90-5.03); White Blood Cell (WBC) Count 27.9 10x3/uL (3.5-10.5)
[2021-01-26] MEDS: Labetalol HCl 100 MG/20 ML VIAL SLOW IVP PRN (05:45)
[2021-01-26] MEDS: Sodium Chloride 0.45% 1,000 ML IV SCH ×3 (06:25→21:00)
[2021-01-26] MEDS: methylPREDNISolone Sod Succ/PF 125 MG/2 ML VIAL IVP SCH ×3 (06:28→17:30)
[2021-01-26 07:05] LABS: Band 8 % (5-11); Lymphocytes 3 % (21-51); Metamyelocyte 2 % (0-0); Monocytes 3 % (0-10); Myelocyte 3 % (0-0); Neutrophil 80 % (42-75); Reactive Lymphocytes 1 % (0-10)
[2021-01-26 07:07] LABS: Anisocytosis MODERATE=16-30 cells (100X) (0-5/hpf); Macrocytosis SLIGHT = 6-15 cells (100X) (0-5/hpf); Microcytosis SLIGHT = 6-15 cells (100X) (0-5/hpf)
[2021-01-26 07:08] LABS: Hypochromia SLIGHT = 6-15 cells (100X) (0-5/hpf); Platelet Morphology Comment Appears Adequate
[2021-01-26 07:09] LABS: MDiff Complete? YES
[2021-01-26] MEDS: Folic Acid/Vit B Comp W-C PO SCH (08:19)
[2021-01-26] MEDS: Labetalol 100 MG TAB PO SCH (08:19)
[2021-01-26] MEDS: Pantoprazole 40 MG VIAL IVP SCH ×2 (08:19→20:17)
[2021-01-26] MEDS: Cholecalciferol 1,000 UNITS (25 MCG) TAB PO SCH (08:19)
[2021-01-26] MEDS: Aspirin 81 mg Enteric Coated Tablet PO SCH (08:20)
[2021-01-26] MEDS: Amlodipine 5 MG TAB PO SCH ×2 (08:20→10:42)
[2021-01-26] MEDS: Sodium Bicarbonate Tab 325 MG TAB PO SCH ×3 (08:20→20:17)
[2021-01-26] MEDS: Ascorbic Acid 500 mg Chewable Tablet PO SCH (08:21)
[2021-01-26] MEDS: Lantus 1000 UNITS/10 ML VIAL SC SCH ×3 (08:22→20:18)
[2021-01-26] MEDS: Polyethylene Glycol 3350 17 GM Packet PO SCH (08:23)
[2021-01-26] MEDS: Iron, Sodium Ferric Gluconate 125 MG in Sodium Chloride 0.9% 100 ML IVPB SCH (08:44)
[2021-01-26 09:22] LABS: Actual Bicarbonate (HCO3a) 24.4 mEq/L (22-28); Base Excess (BEa) 1.6 mEq/L (-2.0 to +3.0); CO2 Tension 30.8 mmHg (35.0-45.0); Calcium, Ionized (arterial) 1.08 mmol/L (1.12-1.30); Carboxyhemoglobin (COHb) 0.7 gm% (0.0-3.0); Critical Notified Whom: RN; Hemoglobin (Hb) 7.4 g/dL (12.0-16.0); O2 Tension (PaO2), arterial 43.5 mmHg (80.0-100.0); Potassium - ABG Lab 3.9 mmol/L (3.70-5.30); Puncture Site RRA; pH, Arterial 7.52 (7.35-7.45)
[2021-01-26] MEDS: Labetalol HCl 200 MG TAB PO SCH ×2 (10:34→20:16)
[2021-01-26 11:56] LABS: Legionella Urinary Ag Negative (Negative); Strep pneumo Urine Ag NEGATIVE (NEGATIVE)
[2021-01-26] MEDS: cefTRIAXone\\ROCEPHIN 1 GM in Sodium Chloride 0.9% 100 ML IVPB SCH (11:57)
[2021-01-26] MEDS: Azithromycin 500 MG in Sodium Chloride 0.9% 250 ML 250 ML IVPB SCH (11:57)
[2021-01-26 12:00] LABS: Hep B Surf Ag Non-Reactive S/CO (NonReactive)
[2021-01-26 12:16] LABS: HBSAg Index 0.13 S/CO (0-0.99)
[2021-01-26] MEDS: hydrALAZINE 20 MG/ML VIAL SLOW IVP PRN (12:19)
[2021-01-26 15:24] LABS: HBSAB Concentration Less than 8.00 mIU/mL; Hep B Core Total Ab Non-Reactive (NonReactive); Hep B Core Total Index 0.09 S/CO (0-0.79); Hep B Surf AB Non-Reactive (NonReactive); Hep C IgG Ab Non-Reactive (NonReactive)
[2021-01-26 15:35] LABS: Platelet Count 264 10x3/uL (150-450)
[2021-01-26 17:30] LABS: Hemoglobin 8.7 g/dL (12.0-15.5); Platelet Count 302 10x3/uL (150-450)
[2021-01-26] MEDS ORDERED: Heparin 10,000 UNITS/ 10 ML VIAL SLOW IVP PRN (19:08)
[2021-01-26] MEDS ORDERED: Famotidine/PF 20 mg/2ml Vial SLOW IVP SCH (21:00)
[2021-01-26] MEDS: Atorvastatin Calcium 10 MG TAB PO SCH (21:00)
[2021-01-27 04:39] LABS: ALT (SGPT) 42 U/L (8-55); AST (SGOT) 28 U/L (5-34); Albumin 2.5 g/dL (3.5-5.0); Alkaline Phosphatase 114 U/L (40-110); Anion Gap 20 mmol/L (10-20); Bilirubin, Total 0.6 mg/dL (0.2-1.2); CRP (Inflammatory) 3.34 mg/dL (= or < 0.5); Calc. Creatinine Clearance 15 mL/min (70-130); Calcium 8.4 mg/dL (7.8-10.44); Carbon Dioxide 20 mmol/L (22-29); Chloride 113 mmol/L (98-107); Globulin 2.9 g/dL (2.4-3.5); Glucose 169 mg/dL (70-105); Potassium 4.2 mmol/L (3.5-5.1); Protein, Total 5.4 g/dL (6.0-8.3); Sodium 149 mmol/L (136-145)
[2021-01-27 04:50] LABS: BUN (Urea Nitrogen) 143 mg/dL (9.8-20.1)
[2021-01-27 04:55] LABS: Hemoglobin 7.1 g/dL (12.0-15.5); Mean Corpuscular HGB CONC 34.8 g/dL (32.0-36.0); Mean Corpuscular Hemoglobin 30.1 pg (27.0-33.0); Mean Corpuscular Volume 86.4 fl (81.6-98.3); Mean Platelet Volume 10.5 fl (7.4-10.4); Platelet Count 256 10x3/uL (150-450); RBC Distribution Width 16.2 % (11.5-14.5); Red Blood Cell (RBC) Count 2.36 10x6/uL (3.90-5.03); White Blood Cell (WBC) Count 29.7 10x3/uL (3.5-10.5)
[2021-01-27] MEDS: methylPREDNISolone Sod Succ/PF 125 MG/2 ML VIAL IVP SCH ×2 (06:56)
[2021-01-27 07:07] LABS: Lymphocytes 2 % (21-51); Monocytes 1 % (0-10); Nucleated RBC 1 % (0)
[2021-01-27 07:09] LABS: Band 2 % (5-11); Reactive Lymphocytes 1 % (0-10)
[2021-01-27 07:10] LABS: Metamyelocyte 4 % (0-0); Myelocyte 2 % (0-0); Neutrophil 88 % (42-75)
[2021-01-27 07:12] LABS: Anisocytosis MODERATE=16-30 cells (100X) (0-5/hpf); Macrocytosis SLIGHT = 6-15 cells (100X) (0-5/hpf); Microcytosis SLIGHT = 6-15 cells (100X) (0-5/hpf); Polychromasia SLIGHT = 2-3 cells (100X) (0-2/hpf)
[2021-01-27 07:13] LABS: Large Platelets SLIGHT
[2021-01-27 07:14] LABS: Hypochromia MODERATE=16-30 cells (100X) (0-5/hpf); Platelet Clumps SLIGHT; Platelet Morphology Comment Appears Adequate
[2021-01-27 07:16] LABS: MDiff Complete? YES
[2021-01-27] MEDS: Sodium Chloride 0.45% 1,000 ML IV SCH ×2 (08:31→13:06)
[2021-01-27] MEDS: Ascorbic Acid 500 mg Chewable Tablet PO SCH (09:52)
[2021-01-27] MEDS: Amlodipine 5 MG TAB PO SCH (09:52)
[2021-01-27] MEDS: Cholecalciferol 1,000 UNITS (25 MCG) TAB PO SCH (09:53)
[2021-01-27] MEDS: Aspirin 81 mg Enteric Coated Tablet PO SCH (09:53)
[2021-01-27] MEDS: Lantus 1000 UNITS/10 ML VIAL SC SCH ×2 (09:54→21:00)
[2021-01-27] MEDS: Labetalol HCl 200 MG TAB PO SCH ×2 (10:00→21:00)
[2021-01-27] MEDS: Polyethylene Glycol 3350 17 GM Packet PO SCH (10:01)
[2021-01-27] MEDS: Pantoprazole 40 MG VIAL IVP SCH ×2 (10:02→21:17)
[2021-01-27] MEDS: Folic Acid/Vit B Comp W-C PO SCH (10:02)
[2021-01-27] MEDS: Sodium Bicarbonate Tab 325 MG TAB PO SCH ×3 (10:03→21:18)
[2021-01-27] MEDS: Azithromycin 500 MG in Sodium Chloride 0.9% 250 ML 250 ML IVPB SCH (11:13)
[2021-01-27] MEDS: cefTRIAXone\\ROCEPHIN 1 GM in Sodium Chloride 0.9% 100 ML IVPB SCH (11:14)
[2021-01-27] MEDS: methylPREDNISolone Sod Succ 40 MG VIAL IVP SCH ×2 (13:05→21:18)
[2021-01-27 17:27] LABS: Hemoglobin 8.5 g/dL (12.0-15.5)
[2021-01-27] MEDS ORDERED: Sodium Chloride 0.45% 1,000 ML IV SCH (20:30)
[2021-01-27] MEDS: Atorvastatin Calcium 10 MG TAB PO SCH (21:18)
[2021-01-27] MEDS: Famotidine/PF 20 mg/2ml Vial SLOW IVP SCH (21:18)
[2021-01-27] MEDS: Nicotine 21 MG PATCH TD SCH ×2 (23:00)
[2021-01-28 04:50] LABS: ALT (SGPT) 36 U/L (8-55); AST (SGOT) 26 U/L (5-34); Albumin 2.5 g/dL (3.5-5.0); Alkaline Phosphatase 120 U/L (40-110); Anion Gap 17 mmol/L (10-20); BUN (Urea Nitrogen) 92 mg/dL (9.8-20.1); Bilirubin, Total 0.5 mg/dL (0.2-1.2); Calc. Creatinine Clearance 25 mL/min (70-130); Calcium 8.3 mg/dL (7.8-10.44); Carbon Dioxide 24 mmol/L (22-29); Chloride 106 mmol/L (98-107); Globulin 2.9 g/dL (2.4-3.5); Glucose 189 mg/dL (70-105); Potassium 4.6 mmol/L (3.5-5.1); Protein, Total 5.4 g/dL (6.0-8.3); Sodium 142 mmol/L (136-145)
[2021-01-28 05:02] LABS: Hemoglobin 8.2 g/dL (12.0-15.5); Mean Corpuscular HGB CONC 33.3 g/dL (32.0-36.0); Mean Corpuscular Hemoglobin 29.4 pg (27.0-33.0); Mean Corpuscular Volume 88.2 fl (81.6-98.3); Mean Platelet Volume 10.8 fl (7.4-10.4); Platelet Count 254 10x3/uL (150-450); RBC Distribution Width 15.6 % (11.5-14.5); Red Blood Cell (RBC) Count 2.79 10x6/uL (3.90-5.03); White Blood Cell (WBC) Count 30.1 10x3/uL (3.5-10.5)
[2021-01-28 08:07] LABS: Band 11 % (5-11); Lymphocytes 5 % (21-51); Metamyelocyte 5 % (0-0); Monocytes 1 % (0-10); Myelocyte 4 % (0-0); Neutrophil 71 % (42-75); Nucleated RBC 1 % (0); Reactive Lymphocytes 3 % (0-10)
[2021-01-28 08:08] LABS: Anisocytosis MODERATE=16-30 cells (100X) (0-5/hpf); Hypochromia MODERATE=16-30 cells (100X) (0-5/hpf); Macrocytosis SLIGHT = 6-15 cells (100X) (0-5/hpf); Microcytosis SLIGHT = 6-15 cells (100X) (0-5/hpf); Polychromasia SLIGHT = 2-3 cells (100X) (0-2/hpf)
[2021-01-28 08:10] LABS: Large Platelets SLIGHT; Ovalocytes SLIGHT = 2-5 cells (100X) (0-1/hpf); Platelet Clumps SLIGHT; Platelet Morphology Comment Appears Adequate
[2021-01-28 08:16] LABS: MDiff Complete? YES
[2021-01-28 08:22] LABS: Actual Bicarbonate (HCO3a) 26.5 mEq/L (22-28); Base Excess (BEa) 2.7 mEq/L (-2.0 to +3.0); CO2 Tension 37.5 mmHg (35.0-45.0); Calcium, Ionized (arterial) 1.05 mmol/L (1.12-1.30); Carboxyhemoglobin (COHb) 0.2 gm% (0.0-3.0); Hemoglobin (Hb) 8.8 g/dL (12.0-16.0); O2 Tension (PaO2), arterial 44.5 mmHg (80.0-100.0); Potassium - ABG Lab 4.4 mmol/L (3.70-5.30); Puncture Site LRA; pH, Arterial 7.47 (7.35-7.45)
[2021-01-28 08:24] LABS: ALV-art Gradient 621.625 mmHg (0-20)
[2021-01-28] MEDS: Iron, Sodium Ferric Gluconate 125 MG in Sodium Chloride 0.9% 100 ML IVPB SCH (09:14)
[2021-01-28] MEDS: methylPREDNISolone Sod Succ 40 MG VIAL IVP SCH ×3 (09:15→20:59)
[2021-01-28] MEDS: Pantoprazole 40 MG VIAL IVP SCH ×2 (09:16→20:37)
[2021-01-28] MEDS: Ascorbic Acid 500 mg Chewable Tablet PO SCH (09:17)
[2021-01-28] MEDS: Folic Acid/Vit B Comp W-C PO SCH (09:18)
[2021-01-28] MEDS: Cholecalciferol 1,000 UNITS (25 MCG) TAB PO SCH (09:18)
[2021-01-28] MEDS: Aspirin 81 mg Enteric Coated Tablet PO SCH (09:18)
[2021-01-28] MEDS: Labetalol HCl 200 MG TAB PO SCH ×2 (09:19→20:59)
[2021-01-28] MEDS: Lantus 1000 UNITS/10 ML VIAL SC SCH ×2 (09:19→21:01)
[2021-01-28] MEDS: Sodium Bicarbonate Tab 325 MG TAB PO SCH ×3 (09:20→20:38)
[2021-01-28] MEDS: Polyethylene Glycol 3350 17 GM Packet PO SCH (09:20)
[2021-01-28] MEDS: Acetaminophen 325 MG TAB PO PRN (09:21)
[2021-01-28] MEDS: Amlodipine 5 MG TAB PO SCH (10:04)
[2021-01-28] MEDS: Azithromycin 500 MG in Sodium Chloride 0.9% 250 ML 250 ML IVPB SCH (12:14)
[2021-01-28] MEDS ORDERED: Vancomycin 1 GM in Premix Bag 1 BAG IVPB SCH (12:45)
[2021-01-28] MEDS ORDERED: HOLD VANCOMYCIN FOR LEVEL >20 FS SCH (12:45)
[2021-01-28] MEDS ORDERED: Vancomycin HCl 750 MG in Sodium Chloride 0.9% 250 ML 250 ML IVPB SCH (12:45)
[2021-01-28] MEDS ORDERED: Vancomycin HCl 1.25 GM in Sodium Chloride 0.9% 250 ML 250 ML IVPB SCH (12:45)
[2021-01-28] MEDS ORDERED: Vancomycin Sliding Scale 1 EACH FS ONE (12:45)
[2021-01-28] MEDS ORDERED: Vancomycin HCl 1.5 GM in Sodium Chloride 0.9% 250 ML 300 ML IVPB SCH (12:45)
[2021-01-28] MEDS ORDERED: Cefepime 1 GM in Sodium Chloride 0.9% 100 ML IVPB SCH (14:00)
[2021-01-28] MEDS ORDERED: VANCOMYCIN 1.75 GM in Sodium Chloride 0.9% 500 ML IVPB SCH ×2 (14:00→15:15)
[2021-01-28 14:29] LABS: Platelet Count 269 10x3/uL (150-450)
[2021-01-28 14:55] LABS: Actual Bicarbonate (HCO3a) 23.9 mEq/L (22-28); CO2 Tension 31.6 mmHg (35.0-45.0); Calcium, Ionized (arterial) 1.09 mmol/L (1.12-1.30); Carboxyhemoglobin (COHb) 0.3 gm% (0.0-3.0); Hemoglobin (Hb) 8.8 g/dL (12.0-16.0); O2 Tension (PaO2), arterial 41.1 mmHg (80.0-100.0); Potassium - ABG Lab 4.1 mmol/L (3.70-5.30); Puncture Site RRA
[2021-01-28] MEDS: cefTRIAXone\\ROCEPHIN 1 GM in Sodium Chloride 0.9% 100 ML IVPB SCH (15:50)
[2021-01-28] MEDS: Atorvastatin Calcium 10 MG TAB PO SCH (20:38)
[2021-01-28] MEDS: Famotidine/PF 20 mg/2ml Vial SLOW IVP SCH (20:38)
[2021-01-28] MEDS: HumaLOG 300 UNITS/3 ML VIAL SC PRN (21:12)
[2021-01-28] MEDS: Nicotine 21 MG PATCH TD SCH (23:06)
[2021-01-29] MEDS: HumaLOG 300 UNITS/3 ML VIAL SC PRN (05:55)
[2021-01-29] MEDS: methylPREDNISolone Sod Succ 40 MG VIAL IVP SCH ×3 (06:09→21:06)
[2021-01-29 06:15] LABS: Vancomycin, Random 21.8 ug/mL (See Comment)
[2021-01-29 06:17] LABS: ALT (SGPT) 32 U/L (8-55); AST (SGOT) 24 U/L (5-34); Albumin 2.6 g/dL (3.5-5.0); Alkaline Phosphatase 145 U/L (40-110); Anion Gap 19 mmol/L (10-20); BUN (Urea Nitrogen) 54 mg/dL (9.8-20.1); Bilirubin, Total 0.5 mg/dL (0.2-1.2); Calc. Creatinine Clearance 32 mL/min (70-130); Calcium 8.1 mg/dL (7.8-10.44); Carbon Dioxide 23 mmol/L (22-29); Chloride 104 mmol/L (98-107); Globulin 2.9 g/dL (2.4-3.5); Glucose 241 mg/dL (70-105); Potassium 4.7 mmol/L (3.5-5.1); Protein, Total 5.5 g/dL (6.0-8.3); Sodium 141 mmol/L (136-145)
[2021-01-29 06:58] LABS: Hemoglobin 8.3 g/dL (12.0-15.5); Mean Corpuscular HGB CONC 32.8 g/dL (32.0-36.0); Mean Corpuscular Hemoglobin 29.3 pg (27.0-33.0); Mean Corpuscular Volume 89.4 fl (81.6-98.3); Mean Platelet Volume 10.6 fl (7.4-10.4); Platelet Count 256 10x3/uL (150-450); RBC Distribution Width 15.6 % (11.5-14.5); Red Blood Cell (RBC) Count 2.83 10x6/uL (3.90-5.03); White Blood Cell (WBC) Count 30.5 10x3/uL (3.5-10.5)
[2021-01-29] MEDS: Ascorbic Acid 500 mg Chewable Tablet PO SCH (08:41)
[2021-01-29] MEDS: Acetaminophen 325 MG TAB PO PRN (08:41)
[2021-01-29] MEDS: Pantoprazole 40 MG VIAL IVP SCH ×2 (08:41→21:07)
[2021-01-29] MEDS: Labetalol HCl 200 MG TAB PO SCH ×2 (08:43→21:06)
[2021-01-29] MEDS: Cholecalciferol 1,000 UNITS (25 MCG) TAB PO SCH (08:43)
[2021-01-29] MEDS: Amlodipine 5 MG TAB PO SCH (08:43)
[2021-01-29] MEDS: Sodium Bicarbonate Tab 325 MG TAB PO SCH ×3 (08:43→21:06)
[2021-01-29] MEDS: Folic Acid/Vit B Comp W-C PO SCH (08:43)
[2021-01-29] MEDS: Aspirin 81 mg Enteric Coated Tablet PO SCH (08:43)
[2021-01-29] MEDS: Lantus 1000 UNITS/10 ML VIAL SC SCH ×2 (08:45→21:07)
[2021-01-29] MEDS: EPOETIN ALFA-EPBX (ESRD) 2,000 UNIT/ML VIAL SC SCH (08:51)
[2021-01-29] MEDS: EPOETIN ALFA-EPBX (ESRD) 3,000 UNIT/ML VIAL SC SCH (08:51)
[2021-01-29] MEDS: Polyethylene Glycol 3350 17 GM Packet PO SCH (08:52)
[2021-01-29 09:06] LABS: Band 2 % (5-11); Lymphocytes 1 % (21-51); Monocytes 2 % (0-10); Myelocyte 2 % (0-0); Neutrophil 93 % (42-75)
[2021-01-29 09:08] LABS: MDiff Complete? YES; Reflex for Review?? YES
[2021-01-29 09:09] LABS: Anisocytosis SLIGHT = 6-15 cells (100X) (0-5/hpf); Hypochromia SLIGHT = 6-15 cells (100X) (0-5/hpf); Platelet Morphology Comment Appears Adequate; Polychromasia SLIGHT = 2-3 cells (100X) (0-2/hpf); Target Cells SLIGHT = 2-5 cells (100X) (0-1/hpf)
[2021-01-29] MEDS: Dextrose 50% Abboject 50 ML SYRINGE SLOW IVP PRN ×2 (12:38→14:45)
[2021-01-29] MEDS: Cefepime 0.5 GM in Sodium Chloride 0.9% 100 ML IVPB SCH (13:09)
[2021-01-29] MEDS: Atorvastatin Calcium 10 MG TAB PO SCH (21:06)
[2021-01-29] MEDS: Famotidine/PF 20 mg/2ml Vial SLOW IVP SCH (21:06)
[2021-01-29] MEDS: Enoxaparin Sodium 40 MG/0.4 ML SYRINGE SC SCH (21:06)
[2021-01-29] MEDS: Nicotine 21 MG PATCH TD SCH (23:59)
[2021-01-30 04:50] LABS: Mean Corpuscular HGB CONC 32.5 g/dL (32.0-36.0); Mean Corpuscular Hemoglobin 29.9 pg (27.0-33.0); Mean Corpuscular Volume 91.8 fl (81.6-98.3); Mean Platelet Volume 10.7 fl (7.4-10.4); Platelet Count 245 10x3/uL (150-450); RBC Distribution Width 15.6 % (11.5-14.5); Red Blood Cell (RBC) Count 2.68 10x6/uL (3.90-5.03); White Blood Cell (WBC) Count 28.1 10x3/uL (3.5-10.5)
[2021-01-30 04:56] LABS: Vancomycin, Random 12.4 ug/mL (See Comment)
[2021-01-30 04:59] LABS: ALT (SGPT) 26 U/L (8-55); AST (SGOT) 25 U/L (5-34); Albumin 2.6 g/dL (3.5-5.0); Alkaline Phosphatase 137 U/L (40-110); Anion Gap 15 mmol/L (10-20); BUN (Urea Nitrogen) 30 mg/dL (9.8-20.1); Bilirubin, Total 0.4 mg/dL (0.2-1.2); Calc. Creatinine Clearance 39 mL/min (70-130); Carbon Dioxide 30 mmol/L (22-29); Chloride 102 mmol/L (98-107); Globulin 2.6 g/dL (2.4-3.5); Glucose 143 mg/dL (70-105); Potassium 4.5 mmol/L (3.5-5.1); Protein, Total 5.2 g/dL (6.0-8.3); Sodium 142 mmol/L (136-145)
[2021-01-30] MEDS: methylPREDNISolone Sod Succ 40 MG VIAL IVP SCH ×3 (05:15→21:26)
[2021-01-30 07:06] LABS: Band 9 % (5-11); Eosinophils 1 % (0-10); Lymphocytes 2 % (21-51); Monocytes 2 % (0-10); Neutrophil 85 % (42-75); Nucleated RBC 1 % (0); Reactive Lymphocytes 1 % (0-10)
[2021-01-30 07:07] LABS: Anisocytosis SLIGHT = 6-15 cells (100X) (0-5/hpf); Hypochromia SLIGHT = 6-15 cells (100X) (0-5/hpf); Microcytosis SLIGHT = 6-15 cells (100X) (0-5/hpf); Polychromasia SLIGHT = 2-3 cells (100X) (0-2/hpf)
[2021-01-30 07:09] LABS: Hypersemented Neutrophil SLIGHT; Large Platelets SLIGHT; Platelet Morphology Comment Appears Adequate
[2021-01-30 07:10] LABS: MDiff Complete? YES
[2021-01-30] MEDS: Sodium Bicarbonate Tab 325 MG TAB PO SCH ×3 (08:51→21:25)
[2021-01-30] MEDS: Ascorbic Acid 500 mg Chewable Tablet PO SCH (08:51)
[2021-01-30] MEDS: Pantoprazole 40 MG VIAL IVP SCH ×2 (08:51→21:26)
[2021-01-30] MEDS: Aspirin 81 mg Enteric Coated Tablet PO SCH (08:51)
[2021-01-30] MEDS: Cholecalciferol 1,000 UNITS (25 MCG) TAB PO SCH (08:51)
[2021-01-30] MEDS: Lantus 1000 UNITS/10 ML VIAL SC SCH ×2 (08:52→21:27)
[2021-01-30] MEDS: Folic Acid/Vit B Comp W-C PO SCH (08:54)
[2021-01-30] MEDS: Enoxaparin Sodium 40 MG/0.4 ML SYRINGE SC SCH ×2 (08:54→21:26)
[2021-01-30] MEDS: Polyethylene Glycol 3350 17 GM Packet PO SCH (08:55)
[2021-01-30] MEDS: Labetalol HCl 200 MG TAB PO SCH ×2 (08:55→21:25)
[2021-01-30] MEDS: Amlodipine 5 MG TAB PO SCH (09:48)
[2021-01-30 11:02] LABS: Actual Bicarbonate (HCO3a) 32.4 mEq/L (22-28); Calcium, Ionized (arterial) 1.03 mmol/L (1.12-1.30); Carboxyhemoglobin (COHb) 0.3 gm% (0.0-3.0); Hemoglobin (Hb) 8.6 g/dL (12.0-16.0); O2 Tension (PaO2), arterial 53.5 mmHg (80.0-100.0); Puncture Site RRA; pH, Arterial 7.48 (7.35-7.45)
[2021-01-30] MEDS ORDERED: Vancomycin HCl 1 GM in Sodium Chloride 0.9% 250 ML 250 ML IVPB SCH (12:00)
[2021-01-30] MEDS: Cefepime 0.5 GM in Sodium Chloride 0.9% 100 ML IVPB SCH (14:10)
[2021-01-30 15:14] LABS: Hemoglobin 9.9 g/dL (12.0-15.5); Platelet Count 259 10x3/uL (150-450)
[2021-01-30] MEDS: Atorvastatin Calcium 10 MG TAB PO SCH (21:26)
[2021-01-30] MEDS: Famotidine/PF 20 mg/2ml Vial SLOW IVP SCH (21:26)
[2021-01-30] MEDS: Nicotine 21 MG PATCH TD SCH (23:42)
[2021-01-31] MEDS: methylPREDNISolone Sod Succ 40 MG VIAL IVP SCH ×3 (05:17→22:31)
[2021-01-31 06:01] LABS: Hemoglobin 8.4 g/dL (12.0-15.5); Mean Corpuscular HGB CONC 31.9 g/dL (32.0-36.0); Mean Corpuscular Volume 93.9 fl (81.6-98.3); Mean Platelet Volume 10.7 fl (7.4-10.4); Platelet Count 237 10x3/uL (150-450); RBC Distribution Width 15.9 % (11.5-14.5); White Blood Cell (WBC) Count 22.9 10x3/uL (3.5-10.5)
[2021-01-31 06:21] LABS: ALT (SGPT) 27 U/L (8-55); AST (SGOT) 23 U/L (5-34); Albumin 2.8 g/dL (3.5-5.0); Alkaline Phosphatase 152 U/L (40-110); Anion Gap 21 mmol/L (10-20); BUN (Urea Nitrogen) 38 mg/dL (9.8-20.1); Bilirubin, Total 0.4 mg/dL (0.2-1.2); Calc. Creatinine Clearance 33 mL/min (70-130); Calcium 8.6 mg/dL (7.8-10.44); Carbon Dioxide 22 mmol/L (22-29); Chloride 102 mmol/L (98-107); Globulin 2.8 g/dL (2.4-3.5); Glucose 165 mg/dL (70-105); Potassium 5.3 mmol/L (3.5-5.1); Protein, Total 5.6 g/dL (6.0-8.3); Sodium 140 mmol/L (136-145)
[2021-01-31 07:30] LABS: Lymphocytes 2 % (21-51); Monocytes 1 % (0-10); Myelocyte 1 % (0-0)
[2021-01-31 07:31] LABS: Band 4 % (5-11); Neutrophil 92 % (42-75)
[2021-01-31 07:33] LABS: Anisocytosis MODERATE=16-30 cells (100X) (0-5/hpf); Macrocytosis SLIGHT = 6-15 cells (100X) (0-5/hpf); Microcytosis SLIGHT = 6-15 cells (100X) (0-5/hpf); Polychromasia SLIGHT = 2-3 cells (100X) (0-2/hpf)
[2021-01-31 07:34] LABS: Hypochromia SLIGHT = 6-15 cells (100X) (0-5/hpf); Large Platelets SLIGHT; Platelet Morphology Comment Appears Adequate
[2021-01-31 07:35] LABS: Hypersemented Neutrophil SLIGHT; MDiff Complete? YES
[2021-01-31] MEDS: Ascorbic Acid 500 mg Chewable Tablet PO SCH (08:12)
[2021-01-31] MEDS: Amlodipine 5 MG TAB PO SCH (08:12)
[2021-01-31] MEDS: Cholecalciferol 1,000 UNITS (25 MCG) TAB PO SCH (08:12)
[2021-01-31] MEDS: Enoxaparin Sodium 40 MG/0.4 ML SYRINGE SC SCH ×2 (08:12→21:59)
[2021-01-31] MEDS: Folic Acid/Vit B Comp W-C PO SCH (08:13)
[2021-01-31] MEDS: Labetalol HCl 200 MG TAB PO SCH ×2 (08:13→21:59)
[2021-01-31] MEDS: Aspirin 81 mg Enteric Coated Tablet PO SCH (08:13)
[2021-01-31] MEDS: Sodium Bicarbonate Tab 325 MG TAB PO SCH ×3 (08:13→21:59)
[2021-01-31] MEDS: Lantus 1000 UNITS/10 ML VIAL SC SCH ×2 (08:14→21:59)
[2021-01-31] MEDS: Polyethylene Glycol 3350 17 GM Packet PO SCH (10:34)
[2021-01-31] MEDS: Pantoprazole 40 MG VIAL IVP SCH ×2 (10:34→21:59)
[2021-01-31] MEDS ORDERED: Vancomycin HCl 1 GM in Sodium Chloride 0.9% 250 ML 250 ML IVPB SCH (10:45)
[2021-01-31] MEDS: Cefepime 0.5 GM in Sodium Chloride 0.9% 100 ML IVPB SCH (13:29)
[2021-01-31] MEDS: Atorvastatin Calcium 10 MG TAB PO SCH (21:59)
[2021-01-31] MEDS: Famotidine/PF 20 mg/2ml Vial SLOW IVP SCH (21:59)
[2021-01-31] MEDS: Nicotine 21 MG PATCH TD SCH (22:31)
[2021-02-01 07:30] LABS: Vancomycin, Random 18.2 ug/mL (See Comment)
[2021-02-01] MEDS: Enoxaparin Sodium 40 MG/0.4 ML SYRINGE SC SCH ×2 (08:05→19:53)
[2021-02-01] MEDS: Ascorbic Acid 500 mg Chewable Tablet PO SCH (08:05)
[2021-02-01] MEDS: Cholecalciferol 1,000 UNITS (25 MCG) TAB PO SCH (08:05)
[2021-02-01] MEDS: Amlodipine 5 MG TAB PO SCH (08:06)
[2021-02-01] MEDS: Sodium Bicarbonate Tab 325 MG TAB PO SCH ×3 (08:06→19:52)
[2021-02-01] MEDS: Aspirin 81 mg Enteric Coated Tablet PO SCH (08:06)
[2021-02-01] MEDS: Folic Acid/Vit B Comp W-C PO SCH (08:09)
[2021-02-01] MEDS: Labetalol HCl 200 MG TAB PO SCH ×2 (08:09→19:59)
[2021-02-01] MEDS: Pantoprazole 40 MG VIAL IVP SCH ×2 (09:41→19:52)
[2021-02-01] MEDS: Polyethylene Glycol 3350 17 GM Packet PO SCH (09:42)
[2021-02-01] MEDS: methylPREDNISolone Sod Succ 40 MG VIAL IVP SCH ×3 (10:11→22:18)
[2021-02-01] MEDS: Lantus 1000 UNITS/10 ML VIAL SC SCH ×2 (10:56→22:26)
[2021-02-01] MEDS: Cefepime 0.5 GM in Sodium Chloride 0.9% 100 ML IVPB SCH (13:08)
[2021-02-01 15:13] LABS: Hemoglobin 8.7 g/dL (12.0-15.5); Platelet Count 322 10x3/uL (150-450)
[2021-02-01] MEDS: Famotidine/PF 20 mg/2ml Vial SLOW IVP SCH (19:52)
[2021-02-01] MEDS: Atorvastatin Calcium 10 MG TAB PO SCH (19:53)
[2021-02-01] MEDS: Bumetanide 1 MG/4 ML VIAL IVP SCH (19:59)
[2021-02-01] MEDS: Nicotine 21 MG PATCH TD SCH (22:17)
[2021-02-02 04:25] LABS: #Monocytes 0.6 10x3/uL (0.0-1.1); #Neutrophils 17.7 10x3/uL (1.5-8.4); %Basophils 0.2 % (0.0-2.0); %Lymphocytes 4.2 % (18.0-47.0); %Monocytes 2.9 % (0.0-10.0); %Neutrophils 91.3 % (40.0-75.0); Hemoglobin 8.7 g/dL (12.0-15.5); Mean Corpuscular HGB CONC 31.8 g/dL (32.0-36.0); Mean Corpuscular Hemoglobin 29.3 pg (27.0-33.0); Mean Corpuscular Volume 92.3 fl (81.6-98.3); Mean Platelet Volume 10.3 fl (7.4-10.4); Platelet Count 337 10x3/uL (150-450); RBC Distribution Width 16.3 % (11.5-14.5); Red Blood Cell (RBC) Count 2.97 10x6/uL (3.90-5.03); White Blood Cell (WBC) Count 19.4 10x3/uL (3.5-10.5)
[2021-02-02 04:35] LABS: Iron 57 ug/dL (50-170); Iron Binding Capacity, Total 250 mcg/dL (265-497)
[2021-02-02 04:42] LABS: Phosphorus 7.5 mg/dL (2.3-4.7)
[2021-02-02 04:51] LABS: Anion Gap 24 mmol/L (10-20); BUN (Urea Nitrogen) 75 mg/dL (9.8-20.1); Calc. Creatinine Clearance 17 mL/min (70-130); Calcium 9.1 mg/dL (7.8-10.44); Carbon Dioxide 22 mmol/L (22-29); Chloride 100 mmol/L (98-107); Glucose 238 mg/dL (70-105); Potassium 5.4 mmol/L (3.5-5.1); Sodium 141 mmol/L (136-145)
[2021-02-02] MEDS: methylPREDNISolone Sod Succ 40 MG VIAL IVP SCH ×3 (05:26→22:41)
[2021-02-02] MEDS: HumaLOG 300 UNITS/3 ML VIAL SC PRN ×2 (05:26→15:31)
[2021-02-02] MEDS: Ascorbic Acid 500 mg Chewable Tablet PO SCH (08:57)
[2021-02-02] MEDS: Pantoprazole 40 MG VIAL IVP SCH ×2 (08:57→22:40)
[2021-02-02] MEDS: Enoxaparin Sodium 40 MG/0.4 ML SYRINGE SC SCH ×2 (08:57→22:24)
[2021-02-02] MEDS: Amlodipine 5 MG TAB PO SCH (08:58)
[2021-02-02] MEDS: Sodium Bicarbonate Tab 325 MG TAB PO SCH ×3 (08:58→22:40)
[2021-02-02] MEDS: Aspirin 81 mg Enteric Coated Tablet PO SCH (08:58)
[2021-02-02] MEDS: Cholecalciferol 1,000 UNITS (25 MCG) TAB PO SCH (09:04)
[2021-02-02] MEDS: Bumetanide 1 MG/4 ML VIAL IVP SCH ×2 (09:05→22:22)
[2021-02-02] MEDS: Labetalol HCl 200 MG TAB PO SCH ×2 (09:06→22:24)
[2021-02-02] MEDS: Folic Acid/Vit B Comp W-C PO SCH (09:06)
[2021-02-02 09:07] LABS: Actual Bicarbonate (HCO3a) 25.7 mEq/L (22-28); Base Excess (BEa) 2.8 mEq/L (-2.0 to +3.0); Calcium, Ionized (arterial) 1.06 mmol/L (1.12-1.30); Carboxyhemoglobin (COHb) 0.8 gm% (0.0-3.0); Hemoglobin (Hb) 7.3 g/dL (12.0-16.0); O2 Tension (PaO2), arterial 44.5 mmHg (80.0-100.0); Puncture Site LRA; pH, Arterial 7.52 (7.35-7.45)
[2021-02-02] MEDS: Polyethylene Glycol 3350 17 GM Packet PO SCH (09:07)
[2021-02-02] MEDS: Lantus 1000 UNITS/10 ML VIAL SC SCH ×2 (09:07→22:50)
[2021-02-02] MEDS: Sevelamer Carbonate 800 MG TAB PO SCH ×2 (12:12→18:16)
[2021-02-02] MEDS ORDERED: Cefepime 1 GM VIAL ONE (14:36)
[2021-02-02] MEDS: Cefepime 0.5 GM in Sodium Chloride 0.9% 100 ML IVPB SCH (14:36)
[2021-02-02] MEDS ORDERED: Sodium Chloride 0.9% 100 ML ONE (14:36)
[2021-02-02] MEDS: Nicotine 21 MG PATCH TD SCH (22:39)
[2021-02-02] MEDS: Atorvastatin Calcium 10 MG TAB PO SCH (22:40)
[2021-02-02] MEDS: Famotidine/PF 20 mg/2ml Vial SLOW IVP SCH (22:40)
[2021-02-03] MEDS ORDERED: Labetalol HCl 200 MG TAB PO SCH (05:15)
[2021-02-03] MEDS: methylPREDNISolone Sod Succ 40 MG VIAL IVP SCH ×3 (05:31→21:46)
[2021-02-03 05:59] LABS: #Monocytes 0.4 10x3/uL (0.0-1.1); #Neutrophils 15.6 10x3/uL (1.5-8.4); %Basophils 0.2 % (0.0-2.0); %Eosinophils 0.1 % (0.0-6.0); %Lymphocytes 2.9 % (18.0-47.0); %Monocytes 2.1 % (0.0-10.0); %Neutrophils 93.3 % (40.0-75.0); Hemoglobin 8.9 g/dL (12.0-15.5); Mean Corpuscular HGB CONC 31.8 g/dL (32.0-36.0); Mean Corpuscular Hemoglobin 29.4 pg (27.0-33.0); Mean Corpuscular Volume 92.4 fl (81.6-98.3); Mean Platelet Volume 10.3 fl (7.4-10.4); Platelet Count 359 10x3/uL (150-450); Red Blood Cell (RBC) Count 3.03 10x6/uL (3.90-5.03); White Blood Cell (WBC) Count 16.7 10x3/uL (3.5-10.5)
[2021-02-03 06:05] LABS: Anion Gap 23 mmol/L (10-20); BUN (Urea Nitrogen) 65 mg/dL (9.8-20.1); Calc. Creatinine Clearance 18 mL/min (70-130); Calcium 8.9 mg/dL (7.8-10.44); Carbon Dioxide 25 mmol/L (22-29); Chloride 100 mmol/L (98-107); Glucose 370 mg/dL (70-105); Potassium 4.9 mmol/L (3.5-5.1); Sodium 143 mmol/L (136-145)
[2021-02-03] MEDS: HumaLOG 300 UNITS/3 ML VIAL SC PRN ×2 (06:11→21:36)
[2021-02-03] MEDS ORDERED: Bupivacaine 0.25% HCL 30 ML VIAL ONE (06:43)
[2021-02-03] MEDS ORDERED: EPINEPHrine 1 MG/ML AMP ONE (06:43)
[2021-02-03] MEDS ORDERED: PROPOFOL 40 ML ONE (07:14)
[2021-02-03] MEDS ORDERED: Lidocaine 1% PF 5 ML VIAL ONE (07:14)
[2021-02-03] MEDS ORDERED: Glycopyrrolate 0.2 MG/ML 5 ML SYRINGE ONE (08:00)
[2021-02-03] MEDS: Sodium Bicarbonate Tab 325 MG TAB PO SCH ×3 (10:26→21:40)
[2021-02-03] MEDS: Bumetanide 1 MG/4 ML VIAL IVP SCH ×2 (10:27→21:51)
[2021-02-03] MEDS: Ascorbic Acid 500 mg Chewable Tablet PO SCH (10:27)
[2021-02-03] MEDS: Sevelamer Carbonate 800 MG TAB PO SCH ×3 (10:27→18:39)
[2021-02-03] MEDS: Ferrous Sulfate 325 MG TAB PO SCH (10:27)
[2021-02-03] MEDS: Aspirin 81 mg Enteric Coated Tablet PO SCH (10:27)
[2021-02-03] MEDS: Cholecalciferol 1,000 UNITS (25 MCG) TAB PO SCH (10:27)
[2021-02-03] MEDS: Folic Acid/Vit B Comp W-C PO SCH (10:27)
[2021-02-03] MEDS: Amlodipine 5 MG TAB PO SCH (10:27)
[2021-02-03] MEDS: Pantoprazole 40 MG VIAL IVP SCH ×2 (10:28→21:42)
[2021-02-03] MEDS: Polyethylene Glycol 3350 17 GM Packet PO SCH (10:36)
[2021-02-03] MEDS: Enoxaparin Sodium 40 MG/0.4 ML SYRINGE SC SCH ×2 (10:36→21:55)
[2021-02-03] MEDS: Lantus 1000 UNITS/10 ML VIAL SC SCH ×2 (10:36→21:38)
[2021-02-03] MEDS: Cefepime 0.5 GM in Sodium Chloride 0.9% 100 ML IVPB SCH (16:20)
[2021-02-03] MEDS: Labetalol HCl 200 MG TAB PO SCH (21:41)
[2021-02-03] MEDS: Atorvastatin Calcium 10 MG TAB PO SCH (21:42)
[2021-02-03] MEDS: Famotidine/PF 20 mg/2ml Vial SLOW IVP SCH (21:48)
[2021-02-03] MEDS: Nicotine 21 MG PATCH TD SCH (22:00)
[2021-02-03 22:13] LABS: Hemoglobin 8.9 g/dL (12.0-15.5); Platelet Count 373 10x3/uL (150-450)
[2021-02-04] MEDS: methylPREDNISolone Sod Succ 40 MG VIAL IVP SCH ×3 (06:02→21:19)
[2021-02-04 08:37] LABS: #Monocytes 0.4 10x3/uL (0.0-1.1); #Neutrophils 11.9 10x3/uL (1.5-8.4); %Basophils 0.1 % (0.0-2.0); %Eosinophils 0.1 % (0.0-6.0); %Lymphocytes 4.4 % (18.0-47.0); %Monocytes 3.1 % (0.0-10.0); %Neutrophils 91.5 % (40.0-75.0); Hemoglobin 8.4 g/dL (12.0-15.5); Mean Corpuscular Hemoglobin 28.7 pg (27.0-33.0); Mean Corpuscular Volume 92.5 fl (81.6-98.3); Mean Platelet Volume 10.1 fl (7.4-10.4); Platelet Count 387 10x3/uL (150-450); RBC Distribution Width 15.7 % (11.5-14.5); Red Blood Cell (RBC) Count 2.93 10x6/uL (3.90-5.03)
[2021-02-04] MEDS: Sevelamer Carbonate 800 MG TAB PO SCH ×3 (08:43→17:51)
[2021-02-04] MEDS: Bumetanide 1 MG/4 ML VIAL IVP SCH ×2 (08:43→21:20)
[2021-02-04] MEDS: Enoxaparin Sodium 40 MG/0.4 ML SYRINGE SC SCH ×2 (08:43→21:22)
[2021-02-04] MEDS: Sodium Bicarbonate Tab 325 MG TAB PO SCH ×3 (08:44→21:18)
[2021-02-04] MEDS: Pantoprazole 40 MG VIAL IVP SCH ×2 (08:44→21:20)
[2021-02-04] MEDS: Polyethylene Glycol 3350 17 GM Packet PO SCH (08:44)
[2021-02-04 08:55] LABS: Anion Gap 24 mmol/L (10-20); BUN (Urea Nitrogen) 90 mg/dL (9.8-20.1); Calc. Creatinine Clearance 14 mL/min (70-130); Calcium 9.1 mg/dL (7.8-10.44); Carbon Dioxide 26 mmol/L (22-29); Chloride 99 mmol/L (98-107); Glucose 281 mg/dL (70-105); Potassium 4.6 mmol/L (3.5-5.1); Sodium 144 mmol/L (136-145)
[2021-02-04] MEDS: Ascorbic Acid 500 mg Chewable Tablet PO SCH (12:44)
[2021-02-04] MEDS: Ferrous Sulfate 325 MG TAB PO SCH (12:44)
[2021-02-04] MEDS: Labetalol HCl 200 MG TAB PO SCH ×2 (12:45→21:18)
[2021-02-04] MEDS: Lantus 1000 UNITS/10 ML VIAL SC SCH ×2 (12:45→21:40)
[2021-02-04] MEDS: Cholecalciferol 1,000 UNITS (25 MCG) TAB PO SCH (12:45)
[2021-02-04] MEDS: Cefepime 0.5 GM in Sodium Chloride 0.9% 100 ML IVPB SCH (12:45)
[2021-02-04] MEDS: Aspirin 81 mg Enteric Coated Tablet PO SCH (12:46)
[2021-02-04] MEDS: Folic Acid/Vit B Comp W-C PO SCH (12:46)
[2021-02-04] MEDS: Amlodipine 5 MG TAB PO SCH (12:46)
[2021-02-04] MEDS: Atorvastatin Calcium 10 MG TAB PO SCH (21:17)
[2021-02-04] MEDS: Famotidine/PF 20 mg/2ml Vial SLOW IVP SCH (21:19)
[2021-02-04] MEDS: Nicotine 21 MG PATCH TD SCH (23:40)
[2021-02-05] MEDS: methylPREDNISolone Sod Succ 40 MG VIAL IVP SCH (04:56)
[2021-02-05] MEDS: HumaLOG 300 UNITS/3 ML VIAL SC PRN (04:58)
[2021-02-05 05:59] LABS: Anion Gap 22 mmol/L (10-20); BUN (Urea Nitrogen) 57 mg/dL (9.8-20.1); Calc. Creatinine Clearance 19 mL/min (70-130); Calcium 9.8 mg/dL (7.8-10.44); Carbon Dioxide 24 mmol/L (22-29); Chloride 99 mmol/L (98-107); Glucose 253 mg/dL (70-105); Potassium 4.4 mmol/L (3.5-5.1); Sodium 141 mmol/L (136-145)
[2021-02-05 06:51] LABS: #Monocytes 0.7 10x3/uL (0.0-1.1); #Neutrophils 10.2 10x3/uL (1.5-8.4); %Basophils 0.1 % (0.0-2.0); %Eosinophils 0.1 % (0.0-6.0); %Lymphocytes 6.1 % (18.0-47.0); %Monocytes 5.9 % (0.0-10.0); Hemoglobin 8.9 g/dL (12.0-15.5); Mean Corpuscular HGB CONC 31.6 g/dL (32.0-36.0); Mean Corpuscular Hemoglobin 29.2 pg (27.0-33.0); Mean Corpuscular Volume 92.5 fl (81.6-98.3); Mean Platelet Volume 10.2 fl (7.4-10.4); Platelet Count 408 10x3/uL (150-450); RBC Distribution Width 15.5 % (11.5-14.5); Red Blood Cell (RBC) Count 3.05 10x6/uL (3.90-5.03); White Blood Cell (WBC) Count 11.7 10x3/uL (3.5-10.5)
[2021-02-05] MEDS: Lantus 1000 UNITS/10 ML VIAL SC SCH ×2 (10:00→21:02)
[2021-02-05] MEDS: Enoxaparin Sodium 40 MG/0.4 ML SYRINGE SC SCH ×2 (10:01→20:28)
[2021-02-05] MEDS: EPOETIN ALFA-EPBX (ESRD) 2,000 UNIT/ML VIAL SC SCH (10:01)
[2021-02-05] MEDS: Bumetanide 1 MG/4 ML VIAL IVP SCH ×2 (10:01→20:28)
[2021-02-05] MEDS: EPOETIN ALFA-EPBX (ESRD) 3,000 UNIT/ML VIAL SC SCH (10:01)
[2021-02-05] MEDS: Aspirin 81 mg Enteric Coated Tablet PO SCH (10:02)
[2021-02-05] MEDS: Ferrous Sulfate 325 MG TAB PO SCH (10:02)
[2021-02-05] MEDS: Sevelamer Carbonate 800 MG TAB PO SCH ×3 (10:02→17:31)
[2021-02-05] MEDS: Pantoprazole 40 MG VIAL IVP SCH ×2 (10:02→20:27)
[2021-02-05] MEDS: Folic Acid/Vit B Comp W-C PO SCH (10:02)
[2021-02-05] MEDS: Labetalol HCl 200 MG TAB PO SCH ×2 (10:02→20:27)
[2021-02-05] MEDS: Ascorbic Acid 500 mg Chewable Tablet PO SCH (10:03)
[2021-02-05] MEDS: Amlodipine 5 MG TAB PO SCH (10:03)
[2021-02-05] MEDS: Sodium Bicarbonate Tab 325 MG TAB PO SCH ×3 (10:03→20:27)
[2021-02-05] MEDS: Cholecalciferol 1,000 UNITS (25 MCG) TAB PO SCH (10:03)
[2021-02-05] MEDS: Polyethylene Glycol 3350 17 GM Packet PO SCH (10:04)
[2021-02-05] MEDS: Cefepime 0.5 GM in Sodium Chloride 0.9% 100 ML IVPB SCH (13:27)
[2021-02-05 14:39] LABS: Hemoglobin 8.8 g/dL (12.0-15.5); Platelet Count 390 10x3/uL (150-450)
[2021-02-05] MEDS: Famotidine/PF 20 mg/2ml Vial SLOW IVP SCH (20:27)
[2021-02-05] MEDS: Atorvastatin Calcium 10 MG TAB PO SCH (20:27)
[2021-02-05] MEDS: Nicotine 21 MG PATCH TD SCH (23:49)
[2021-02-06 06:12] LABS: #Eosinphils 0.2 10x3/uL (0.0-0.5); #Monocytes 0.6 10x3/uL (0.0-1.1); #Neutrophils 8.3 10x3/uL (1.5-8.4); %Basophils 0.2 % (0.0-2.0); %Eosinophils 2.3 % (0.0-6.0); %Monocytes 5.5 % (0.0-10.0); %Neutrophils 80.6 % (40.0-75.0); Hemoglobin 8.8 g/dL (12.0-15.5); Mean Corpuscular HGB CONC 32.2 g/dL (32.0-36.0); Mean Corpuscular Hemoglobin 29.4 pg (27.0-33.0); Mean Corpuscular Volume 91.3 fl (81.6-98.3); Mean Platelet Volume 9.8 fl (7.4-10.4); Platelet Count 386 10x3/uL (150-450); RBC Distribution Width 15.7 % (11.5-14.5); Red Blood Cell (RBC) Count 2.99 10x6/uL (3.90-5.03); White Blood Cell (WBC) Count 10.3 10x3/uL (3.5-10.5)
[2021-02-06 06:17] LABS: Anion Gap 23 mmol/L (10-20); BUN (Urea Nitrogen) 85 mg/dL (9.8-20.1); Calc. Creatinine Clearance 15 mL/min (70-130); Calcium 8.7 mg/dL (7.8-10.44); Carbon Dioxide 25 mmol/L (22-29); Chloride 100 mmol/L (98-107); Glucose 61 mg/dL (70-105); Potassium 4.1 mmol/L (3.5-5.1); Sodium 144 mmol/L (136-145)
[2021-02-06] MEDS: Polyethylene Glycol 3350 17 GM Packet PO SCH (09:50)
[2021-02-06] MEDS: Sevelamer Carbonate 800 MG TAB PO SCH ×3 (09:51→19:34)
[2021-02-06] MEDS: Aspirin 81 mg Enteric Coated Tablet PO SCH (09:51)
[2021-02-06] MEDS: Ascorbic Acid 500 mg Chewable Tablet PO SCH (09:51)
[2021-02-06] MEDS: Ferrous Sulfate 325 MG TAB PO SCH (09:51)
[2021-02-06] MEDS: Labetalol HCl 200 MG TAB PO SCH ×2 (09:51→22:19)
[2021-02-06] MEDS: Folic Acid/Vit B Comp W-C PO SCH (09:52)
[2021-02-06] MEDS: Cholecalciferol 1,000 UNITS (25 MCG) TAB PO SCH (09:52)
[2021-02-06] MEDS: Enoxaparin Sodium 40 MG/0.4 ML SYRINGE SC SCH ×2 (09:52→22:27)
[2021-02-06] MEDS: Bumetanide 1 MG/4 ML VIAL IVP SCH ×2 (09:52→22:29)
[2021-02-06] MEDS: Sodium Bicarbonate Tab 325 MG TAB PO SCH ×3 (09:52→22:20)
[2021-02-06] MEDS: Amlodipine 5 MG TAB PO SCH (09:52)
[2021-02-06] MEDS: Lantus 1000 UNITS/10 ML VIAL SC SCH ×2 (09:53→23:28)
[2021-02-06] MEDS: Pantoprazole 40 MG VIAL IVP SCH ×2 (09:53→22:26)
[2021-02-06] MEDS: methylPREDNISolone Sod Succ 40 MG VIAL IVP SCH (09:53)
[2021-02-06] MEDS ORDERED: Tuberculin PPD 0.1 ML VIAL I-DERMAL SCH (10:30)
[2021-02-06] MEDS: Cefepime 0.5 GM, Admixture Fee 1 EACH in Sodium Chloride 0.9% 100 ML IVPB SCH (19:30)
[2021-02-06] MEDS: Dextrose 50% Abboject 50 ML SYRINGE SLOW IVP PRN (20:45)
[2021-02-06] MEDS: Atorvastatin Calcium 10 MG TAB PO SCH (22:20)
[2021-02-06] MEDS: Famotidine/PF 20 mg/2ml Vial SLOW IVP SCH (22:20)
[2021-02-07] MEDS: Nicotine 21 MG PATCH TD SCH ×2 (00:33→22:04)
[2021-02-07 07:11] LABS: Anion Gap 17 mmol/L (10-20); BUN (Urea Nitrogen) 38 mg/dL (9.8-20.1); BUN/Creatinine Ratio 8.17; Calc. Creatinine Clearance 20 mL/min (70-130); Calcium 8.7 mg/dL (7.8-10.44); Carbon Dioxide 25 mmol/L (22-29); Chloride 99 mmol/L (98-107); Glucose 95 mg/dL (70-105); Potassium 4.4 mmol/L (3.5-5.1); Sodium 137 mmol/L (136-145)
[2021-02-07] MEDS ORDERED: Furosemide 20 MG/2 ML VIAL SLOW IVP SCH (10:00)
[2021-02-07] MEDS: Cholecalciferol 1,000 UNITS (25 MCG) TAB PO SCH (10:58)
[2021-02-07] MEDS: Ascorbic Acid 500 mg Chewable Tablet PO SCH (10:58)
[2021-02-07] MEDS: Ferrous Sulfate 325 MG TAB PO SCH (10:58)
[2021-02-07] MEDS: Folic Acid/Vit B Comp W-C PO SCH (10:58)
[2021-02-07] MEDS: Labetalol HCl 200 MG TAB PO SCH ×2 (10:58→21:21)
[2021-02-07] MEDS: Amlodipine 5 MG TAB PO SCH (10:58)
[2021-02-07] MEDS: Enoxaparin Sodium 40 MG/0.4 ML SYRINGE SC SCH ×2 (10:59→21:17)
[2021-02-07] MEDS: Sodium Bicarbonate Tab 325 MG TAB PO SCH ×3 (10:59→21:25)
[2021-02-07] MEDS: Bumetanide 1 MG/4 ML VIAL IVP SCH (10:59)
[2021-02-07] MEDS: methylPREDNISolone Sod Succ 40 MG VIAL IVP SCH (10:59)
[2021-02-07] MEDS: Pantoprazole 40 MG VIAL IVP SCH (10:59)
[2021-02-07] MEDS: Aspirin 81 mg Enteric Coated Tablet PO SCH (10:59)
[2021-02-07] MEDS: Sevelamer Carbonate 800 MG TAB PO SCH ×3 (11:00→17:50)
[2021-02-07] MEDS: Lantus 1000 UNITS/10 ML VIAL SC SCH ×2 (11:00→21:26)
[2021-02-07] MEDS: Polyethylene Glycol 3350 17 GM Packet PO SCH (11:00)
[2021-02-07 14:52] LABS: Hemoglobin 8.9 g/dL (12.0-15.5); Platelet Count 367 10x3/uL (150-450)
[2021-02-07] MEDS: Cefepime 0.5 GM, Admixture Fee 1 EACH in Sodium Chloride 0.9% 100 ML IVPB SCH (17:49)
[2021-02-07] MEDS: HumaLOG 300 UNITS/3 ML VIAL SC PRN (21:16)
[2021-02-07] MEDS: Famotidine/PF 20 mg/2ml Vial SLOW IVP SCH (21:19)
[2021-02-07] MEDS: Atorvastatin Calcium 10 MG TAB PO SCH (21:21)
[2021-02-07] MEDS: Benzonatate 100 MG CAP PO PRN (21:21)
[2021-02-08 04:34] LABS: Anion Gap 20 mmol/L (10-20); BUN (Urea Nitrogen) 69 mg/dL (9.8-20.1); Calc. Creatinine Clearance 14 mL/min (70-130); Calcium 8.4 mg/dL (7.8-10.44); Carbon Dioxide 25 mmol/L (22-29); Chloride 98 mmol/L (98-107); Glucose 106 mg/dL (70-105); Potassium 4.4 mmol/L (3.5-5.1); Sodium 139 mmol/L (136-145)
[2021-02-08] MEDS: Amlodipine 5 MG TAB PO SCH (08:15)
[2021-02-08] MEDS: Sevelamer Carbonate 800 MG TAB PO SCH ×3 (08:15→17:19)
[2021-02-08] MEDS: Ascorbic Acid 500 mg Chewable Tablet PO SCH (08:15)
[2021-02-08] MEDS: Sodium Bicarbonate Tab 325 MG TAB PO SCH ×3 (08:16→21:25)
[2021-02-08] MEDS: Polyethylene Glycol 3350 17 GM Packet PO SCH (08:16)
[2021-02-08] MEDS: Labetalol HCl 200 MG TAB PO SCH ×2 (08:16→21:25)
[2021-02-08] MEDS: Ergocalciferol 1.25 MG(50,000 UNITS) CAP PO SCH (08:17)
[2021-02-08] MEDS: Ferrous Sulfate 325 MG TAB PO SCH (08:17)
[2021-02-08] MEDS: Folic Acid/Vit B Comp W-C PO SCH (08:17)
[2021-02-08] MEDS: Cholecalciferol 1,000 UNITS (25 MCG) TAB PO SCH (08:17)
[2021-02-08] MEDS: Aspirin 81 mg Enteric Coated Tablet PO SCH (08:17)
[2021-02-08] MEDS: Torsemide 20 MG TAB PO SCH (08:19)
[2021-02-08] MEDS: methylPREDNISolone Sod Succ 40 MG VIAL IVP SCH (08:33)
[2021-02-08] MEDS: Enoxaparin Sodium 40 MG/0.4 ML SYRINGE SC SCH ×2 (08:33→21:24)
[2021-02-08] MEDS: Cefepime 0.5 GM, Admixture Fee 1 EACH in Sodium Chloride 0.9% 100 ML IVPB SCH (17:50)
[2021-02-08] MEDS ORDERED: Furosemide 40 MG/4 ML VIAL SLOW IVP SCH (20:00)
[2021-02-08] MEDS ORDERED: Mirtazapine 15 MG Soltab PO SCH (21:00)
[2021-02-08] MEDS: Atorvastatin Calcium 10 MG TAB PO SCH (21:25)
[2021-02-08] MEDS: Famotidine/PF 20 mg/2ml Vial SLOW IVP SCH (21:26)
[2021-02-08] MEDS: Lantus 1000 UNITS/10 ML VIAL SC SCH (21:27)
[2021-02-08] MEDS: Nicotine 21 MG PATCH TD SCH (22:50)
[2021-02-09 07:42] LABS: Mean Corpuscular HGB CONC 30.6 g/dL (32.0-36.0); Mean Corpuscular Hemoglobin 29.2 pg (27.0-33.0); Mean Corpuscular Volume 95.5 fl (81.6-98.3); Mean Platelet Volume 9.7 fl (7.4-10.4); Platelet Count 378 10x3/uL (150-450); RBC Distribution Width 16.1 % (11.5-14.5); Red Blood Cell (RBC) Count 3.08 10x6/uL (3.90-5.03); White Blood Cell (WBC) Count 8.4 10x3/uL (3.5-10.5)
[2021-02-09 08:00] LABS: ALT (SGPT) 14 U/L (8-55); AST (SGOT) 12 U/L (5-34); Albumin 3.1 g/dL (3.5-5.0); Alkaline Phosphatase 153 U/L (40-110); Anion Gap 21 mmol/L (10-20); BUN (Urea Nitrogen) 45 mg/dL (9.8-20.1); Bilirubin, Total 0.5 mg/dL (0.2-1.2); CRP (Inflammatory) 1.75 mg/dL (= or < 0.5); Calc. Creatinine Clearance 16 mL/min (70-130); Calcium 9.3 mg/dL (7.8-10.44); Carbon Dioxide 22 mmol/L (22-29); Chloride 101 mmol/L (98-107); Glucose 112 mg/dL (70-105); Potassium 4.4 mmol/L (3.5-5.1); Protein, Total 6.1 g/dL (6.0-8.3); Sodium 140 mmol/L (136-145)
[2021-02-09 08:14] LABS: Albumin 3.1 g/dL (3.5-5.0); Anion Gap 20 mmol/L (10-20); BUN (Urea Nitrogen) 45 mg/dL (9.8-20.1); BUN/Creatinine Ratio 8.26; Calc. Creatinine Clearance 17 mL/min (70-130); Calcium 9.6 mg/dL (7.8-10.44); Carbon Dioxide 24 mmol/L (22-29); Chloride 99 mmol/L (98-107); Glucose 111 mg/dL (70-105); Phosphorus 5.7 mg/dL (2.3-4.7); Potassium 4.1 mmol/L (3.5-5.1); Sodium 139 mmol/L (136-145)
[2021-02-09] MEDS ORDERED: READ PPD TEST SITE PO SCH (09:00)
[2021-02-09] MEDS: Sevelamer Carbonate 800 MG TAB PO SCH ×3 (09:49→18:30)
[2021-02-09] MEDS: Aspirin 81 mg Enteric Coated Tablet PO SCH (09:50)
[2021-02-09] MEDS: Enoxaparin Sodium 40 MG/0.4 ML SYRINGE SC SCH ×2 (09:50→20:32)
[2021-02-09] MEDS: Cholecalciferol 1,000 UNITS (25 MCG) TAB PO SCH (09:50)
[2021-02-09] MEDS: Ascorbic Acid 500 mg Chewable Tablet PO SCH (09:50)
[2021-02-09] MEDS: Amlodipine 5 MG TAB PO SCH (09:50)
[2021-02-09] MEDS: Polyethylene Glycol 3350 17 GM Packet PO SCH (09:51)
[2021-02-09] MEDS: Ferrous Sulfate 325 MG TAB PO SCH (09:51)
[2021-02-09] MEDS: Labetalol HCl 200 MG TAB PO SCH ×2 (09:51→20:33)
[2021-02-09] MEDS: Folic Acid/Vit B Comp W-C PO SCH (09:51)
[2021-02-09] MEDS: guaiFENesin ER 600 MG TAB PO SCH ×2 (09:51→20:33)
[2021-02-09] MEDS: methylPREDNISolone Sod Succ 40 MG VIAL IVP SCH (09:51)
[2021-02-09] MEDS: Sodium Bicarbonate Tab 325 MG TAB PO SCH ×3 (09:52→20:33)
[2021-02-09] MEDS: Torsemide 20 MG TAB PO SCH (09:52)
[2021-02-09 11:38] LABS: Hemoglobin 8.8 g/dL (12.0-15.5); Platelet Count 410 10x3/uL (150-450)
[2021-02-09] MEDS: Cefepime 0.5 GM, Admixture Fee 1 EACH in Sodium Chloride 0.9% 100 ML IVPB SCH (18:30)
[2021-02-09] MEDS: Atorvastatin Calcium 10 MG TAB PO SCH (20:33)
[2021-02-09] MEDS: Benzonatate 100 MG CAP PO PRN (20:33)
[2021-02-09] MEDS: Famotidine/PF 20 mg/2ml Vial SLOW IVP SCH (20:33)
[2021-02-09] MEDS: HumaLOG 300 UNITS/3 ML VIAL SC PRN (21:23)
[2021-02-09] MEDS: Lantus 1000 UNITS/10 ML VIAL SC SCH (21:23)
[2021-02-10] MEDS: Nicotine 21 MG PATCH TD SCH ×2 (02:05→20:49)
[2021-02-10 04:37] LABS: Chloride 101 mmol/L (98-107); Potassium 4.5 mmol/L (3.5-5.1); Sodium 141 mmol/L (136-145)
[2021-02-10 04:38] LABS: ALT (SGPT) 12 U/L (8-55); AST (SGOT) 7 U/L (5-34); Alkaline Phosphatase 140 U/L (40-110); Anion Gap 21 mmol/L (10-20); BUN (Urea Nitrogen) 69 mg/dL (9.8-20.1); BUN/Creatinine Ratio 9.54; Bilirubin, Total 0.4 mg/dL (0.2-1.2); Calc. Creatinine Clearance 13 mL/min (70-130); Calcium 9.2 mg/dL (7.8-10.44); Carbon Dioxide 24 mmol/L (22-29); Globulin 3.3 g/dL (2.4-3.5); Glucose 82 mg/dL (70-105); Phosphorus 6.6 mg/dL (2.3-4.7); Protein, Total 6.3 g/dL (6.0-8.3)
[2021-02-10 08:22] LABS: Hemoglobin 8.3 g/dL (12.0-15.5)
[2021-02-10] MEDS: Benzonatate 100 MG CAP PO SCH ×3 (11:58→20:38)
[2021-02-10] MEDS: Amlodipine 5 MG TAB PO SCH (11:58)
[2021-02-10] MEDS: Cholecalciferol 1,000 UNITS (25 MCG) TAB PO SCH (11:58)
[2021-02-10] MEDS: Enoxaparin Sodium 40 MG/0.4 ML SYRINGE SC SCH ×2 (11:58→20:39)
[2021-02-10] MEDS: Ascorbic Acid 500 mg Chewable Tablet PO SCH (11:58)
[2021-02-10] MEDS: Aspirin 81 mg Enteric Coated Tablet PO SCH (11:58)
[2021-02-10] MEDS: Polyethylene Glycol 3350 17 GM Packet PO SCH (11:59)
[2021-02-10] MEDS: Labetalol HCl 200 MG TAB PO SCH ×2 (11:59→20:37)
[2021-02-10] MEDS: guaiFENesin ER 600 MG TAB PO SCH ×2 (11:59→22:05)
[2021-02-10] MEDS: Torsemide 20 MG TAB PO SCH (11:59)
[2021-02-10] MEDS: Ferrous Sulfate 325 MG TAB PO SCH (11:59)
[2021-02-10] MEDS: Sodium Bicarbonate Tab 325 MG TAB PO SCH ×3 (11:59→20:38)
[2021-02-10] MEDS: methylPREDNISolone Sod Succ 40 MG VIAL IVP SCH (11:59)
[2021-02-10] MEDS: Folic Acid/Vit B Comp W-C PO SCH (11:59)
[2021-02-10] MEDS: Sevelamer Carbonate 800 MG TAB PO SCH ×2 (12:06→16:41)
[2021-02-10] MEDS: Cefepime 0.5 GM, Admixture Fee 1 EACH in Sodium Chloride 0.9% 100 ML IVPB SCH (16:40)
[2021-02-10] MEDS: HumaLOG 300 UNITS/3 ML VIAL SC PRN (16:41)
[2021-02-10] MEDS: Famotidine/PF 20 mg/2ml Vial SLOW IVP SCH (20:37)
[2021-02-10] MEDS: Lantus 1000 UNITS/10 ML VIAL SC SCH (20:38)
[2021-02-10] MEDS: Atorvastatin Calcium 10 MG TAB PO SCH (20:38)
[2021-02-11 06:37] LABS: Hemoglobin 8.2 g/dL (12.0-15.5)
[2021-02-11 06:52] LABS: ALT (SGPT) 13 U/L (8-55); AST (SGOT) 8 U/L (5-34); Alkaline Phosphatase 142 U/L (40-110); Anion Gap 17 mmol/L (10-20); BUN (Urea Nitrogen) 35 mg/dL (9.8-20.1); Bilirubin, Total 0.4 mg/dL (0.2-1.2); Calc. Creatinine Clearance 20 mL/min (70-130); Calcium 9.3 mg/dL (7.8-10.44); Carbon Dioxide 26 mmol/L (22-29); Chloride 102 mmol/L (98-107); Glucose 150 mg/dL (70-105); Potassium 3.8 mmol/L (3.5-5.1); Sodium 141 mmol/L (136-145)
[2021-02-11] MEDS: hydrALAZINE 20 MG/ML VIAL SLOW IVP PRN (09:29)
[2021-02-11] MEDS: Amlodipine 5 MG TAB PO SCH (09:30)
[2021-02-11] MEDS: Ascorbic Acid 500 mg Chewable Tablet PO SCH (09:30)
[2021-02-11] MEDS: Sevelamer Carbonate 800 MG TAB PO SCH ×3 (09:30→17:21)
[2021-02-11] MEDS: methylPREDNISolone Sod Succ 40 MG VIAL IVP SCH (09:30)
[2021-02-11] MEDS: Cholecalciferol 1,000 UNITS (25 MCG) TAB PO SCH (09:30)
[2021-02-11] MEDS: Sodium Bicarbonate Tab 325 MG TAB PO SCH ×3 (09:30→20:47)
[2021-02-11] MEDS: Torsemide 20 MG TAB PO SCH (09:30)
[2021-02-11] MEDS: Nicotine 21 MG PATCH TD SCH (09:31)
[2021-02-11] MEDS: Ferrous Sulfate 325 MG TAB PO SCH (09:31)
[2021-02-11] MEDS: Enoxaparin Sodium 40 MG/0.4 ML SYRINGE SC SCH ×2 (09:31→20:49)
[2021-02-11] MEDS: Folic Acid/Vit B Comp W-C PO SCH (09:31)
[2021-02-11] MEDS: Benzonatate 100 MG CAP PO SCH ×3 (09:31→20:48)
[2021-02-11] MEDS: Labetalol HCl 200 MG TAB PO SCH ×2 (09:31→20:48)
[2021-02-11] MEDS: Polyethylene Glycol 3350 17 GM Packet PO SCH (09:31)
[2021-02-11] MEDS: Aspirin 81 mg Enteric Coated Tablet PO SCH (09:31)
[2021-02-11] MEDS: HumaLOG 300 UNITS/3 ML VIAL SC PRN ×2 (11:21→20:49)
[2021-02-11] MEDS: guaiFENesin ER 600 MG TAB PO SCH ×2 (11:22→20:48)
[2021-02-11] MEDS: Cefepime 0.5 GM, Admixture Fee 1 EACH in Sodium Chloride 0.9% 100 ML IVPB SCH (17:21)
[2021-02-11] MEDS: Famotidine/PF 20 mg/2ml Vial SLOW IVP SCH (20:47)
[2021-02-11] MEDS: Atorvastatin Calcium 20 MG TAB PO SCH (20:48)
[2021-02-11] MEDS: Atorvastatin Calcium 10 MG TAB PO SCH (20:48)
[2021-02-11] MEDS: Lantus 1000 UNITS/10 ML VIAL SC SCH (20:49)
[2021-02-12 03:48] LABS: #Eosinphils 0.4 10x3/uL (0.0-0.5); #Monocytes 1.1 10x3/uL (0.0-1.1); #Neutrophils 5.2 10x3/uL (1.5-8.4); %Basophils 0.1 % (0.0-2.0); %Eosinophils 4.6 % (0.0-6.0); %Lymphocytes 15.6 % (18.0-47.0); %Monocytes 13.3 % (0.0-10.0); Hemoglobin 7.8 g/dL (12.0-15.5); Mean Corpuscular HGB CONC 31.1 g/dL (32.0-36.0); Mean Corpuscular Hemoglobin 29.7 pg (27.0-33.0); Mean Corpuscular Volume 95.4 fl (81.6-98.3); Mean Platelet Volume 9.7 fl (7.4-10.4); Platelet Count 332 10x3/uL (150-450); RBC Distribution Width 16.2 % (11.5-14.5); Red Blood Cell (RBC) Count 2.63 10x6/uL (3.90-5.03)
[2021-02-12 04:16] LABS: ALT (SGPT) 11 U/L (8-55); AST (SGOT) 6 U/L (5-34); Alkaline Phosphatase 149 U/L (40-110); Anion Gap 18 mmol/L (10-20); BUN (Urea Nitrogen) 62 mg/dL (9.8-20.1); Bilirubin, Total 0.3 mg/dL (0.2-1.2); Calc. Creatinine Clearance 14 mL/min (70-130); Calcium 9.1 mg/dL (7.8-10.44); Carbon Dioxide 26 mmol/L (22-29); Chloride 101 mmol/L (98-107); Globulin 2.9 g/dL (2.4-3.5); Glucose 237 mg/dL (70-105); Potassium 3.7 mmol/L (3.5-5.1); Protein, Total 5.9 g/dL (6.0-8.3); Sodium 141 mmol/L (136-145)
[2021-02-12] MEDS: HumaLOG 300 UNITS/3 ML VIAL SC PRN ×4 (05:27→20:28)
[2021-02-12] MEDS: Amlodipine 5 MG TAB PO SCH (09:31)
[2021-02-12] MEDS: Aspirin 81 mg Enteric Coated Tablet PO SCH (09:31)
[2021-02-12] MEDS: Sevelamer Carbonate 800 MG TAB PO SCH ×3 (09:31→15:24)
[2021-02-12] MEDS: Sodium Bicarbonate Tab 325 MG TAB PO SCH ×3 (09:31→20:21)
[2021-02-12] MEDS: Ergocalciferol 1.25 MG(50,000 UNITS) CAP PO SCH (09:32)
[2021-02-12] MEDS: Labetalol HCl 200 MG TAB PO SCH ×2 (09:32→20:22)
[2021-02-12] MEDS: methylPREDNISolone Sod Succ 40 MG VIAL IVP SCH (09:32)
[2021-02-12] MEDS: Enoxaparin Sodium 40 MG/0.4 ML SYRINGE SC SCH ×2 (09:32→20:20)
[2021-02-12] MEDS: Cholecalciferol 1,000 UNITS (25 MCG) TAB PO SCH (09:32)
[2021-02-12] MEDS: Ascorbic Acid 500 mg Chewable Tablet PO SCH (09:32)
[2021-02-12] MEDS: Folic Acid/Vit B Comp W-C PO SCH (09:32)
[2021-02-12] MEDS: Benzonatate 100 MG CAP PO SCH ×3 (09:32→20:25)
[2021-02-12] MEDS: Ferrous Sulfate 325 MG TAB PO SCH (09:32)
[2021-02-12] MEDS: Nicotine 21 MG PATCH TD SCH (09:33)
[2021-02-12] MEDS: guaiFENesin ER 600 MG TAB PO SCH ×2 (09:33→20:22)
[2021-02-12] MEDS: Polyethylene Glycol 3350 17 GM Packet PO SCH (09:33)
[2021-02-12] MEDS: EPOETIN ALFA-EPBX (ESRD) 2,000 UNIT/ML VIAL SC SCH (10:02)
[2021-02-12] MEDS: Torsemide 20 MG TAB PO SCH (10:03)
[2021-02-12] MEDS: EPOETIN ALFA-EPBX (ESRD) 3,000 UNIT/ML VIAL SC SCH (10:03)
[2021-02-12] MEDS: Lantus 1000 UNITS/10 ML VIAL SC SCH ×2 (10:14→20:27)
[2021-02-12] MEDS: Cefepime 0.5 GM, Admixture Fee 1 EACH in Sodium Chloride 0.9% 100 ML IVPB SCH (16:54)
[2021-02-12] MEDS: Famotidine/PF 20 mg/2ml Vial SLOW IVP SCH (20:20)
[2021-02-12] MEDS: Atorvastatin Calcium 20 MG TAB PO SCH (20:22)
[2021-02-12] MEDS: Atorvastatin Calcium 10 MG TAB PO SCH (20:22)
[2021-02-13 04:30] LABS: #Eosinphils 0.4 10x3/uL (0.0-0.5); #Monocytes 1.1 10x3/uL (0.0-1.1); #Neutrophils 5.1 10x3/uL (1.5-8.4); %Basophils 0.4 % (0.0-2.0); %Eosinophils 4.3 % (0.0-6.0); %Lymphocytes 17.1 % (18.0-47.0); %Monocytes 13.5 % (0.0-10.0); %Neutrophils 61.6 % (40.0-75.0); Hemoglobin 7.6 g/dL (12.0-15.5); Mean Corpuscular HGB CONC 31.5 g/dL (32.0-36.0); Mean Corpuscular Hemoglobin 29.6 pg (27.0-33.0); Mean Corpuscular Volume 93.8 fl (81.6-98.3); Mean Platelet Volume 9.9 fl (7.4-10.4); Platelet Count 320 10x3/uL (150-450); RBC Distribution Width 15.9 % (11.5-14.5); Red Blood Cell (RBC) Count 2.57 10x6/uL (3.90-5.03); White Blood Cell (WBC) Count 8.3 10x3/uL (3.5-10.5)
[2021-02-13 04:33] LABS: ALT (SGPT) 11 U/L (8-55); AST (SGOT) 6 U/L (5-34); Alkaline Phosphatase 143 U/L (40-110); Anion Gap 19 mmol/L (10-20); BUN (Urea Nitrogen) 84 mg/dL (9.8-20.1); Bilirubin, Total 0.4 mg/dL (0.2-1.2); Calc. Creatinine Clearance 12 mL/min (70-130); Calcium 9.1 mg/dL (7.8-10.44); Carbon Dioxide 23 mmol/L (22-29); Chloride 101 mmol/L (98-107); Globulin 2.8 g/dL (2.4-3.5); Glucose 270 mg/dL (70-105); Potassium 3.9 mmol/L (3.5-5.1); Protein, Total 5.8 g/dL (6.0-8.3); Sodium 139 mmol/L (136-145)
[2021-02-13] MEDS: HumaLOG 300 UNITS/3 ML VIAL SC PRN ×3 (05:29→21:54)
[2021-02-13 06:50] LABS: Iron 69 ug/dL (50-170); Iron Binding Capacity, Total 241 mcg/dL (265-497)
[2021-02-13] MEDS: Folic Acid/Vit B Comp W-C PO SCH (09:10)
[2021-02-13] MEDS: methylPREDNISolone Sod Succ 40 MG VIAL IVP SCH (09:10)
[2021-02-13] MEDS: Cholecalciferol 1,000 UNITS (25 MCG) TAB PO SCH (09:10)
[2021-02-13] MEDS: Torsemide 20 MG TAB PO SCH (09:10)
[2021-02-13] MEDS: Nicotine 21 MG PATCH TD SCH (09:10)
[2021-02-13] MEDS: Sodium Bicarbonate Tab 325 MG TAB PO SCH ×3 (09:10→21:35)
[2021-02-13] MEDS: Sevelamer Carbonate 800 MG TAB PO SCH ×3 (09:10→17:20)
[2021-02-13] MEDS: Ascorbic Acid 500 mg Chewable Tablet PO SCH (09:10)
[2021-02-13] MEDS: Aspirin 81 mg Enteric Coated Tablet PO SCH (09:10)
[2021-02-13] MEDS: Amlodipine 5 MG TAB PO SCH (09:11)
[2021-02-13] MEDS: Enoxaparin Sodium 40 MG/0.4 ML SYRINGE SC SCH ×2 (09:11→21:34)
[2021-02-13] MEDS: Ferrous Sulfate 325 MG TAB PO SCH (09:11)
[2021-02-13] MEDS: Labetalol HCl 200 MG TAB PO SCH ×2 (09:15→21:35)
[2021-02-13] MEDS: guaiFENesin ER 600 MG TAB PO SCH ×2 (10:47→21:35)
[2021-02-13] MEDS: Polyethylene Glycol 3350 17 GM Packet PO SCH (10:47)
[2021-02-13] MEDS: Benzonatate 100 MG CAP PO SCH ×3 (10:47→21:35)
[2021-02-13] MEDS: Famotidine/PF 20 mg/2ml Vial SLOW IVP SCH (21:35)
[2021-02-13] MEDS: Atorvastatin Calcium 10 MG TAB PO SCH (21:35)
[2021-02-13] MEDS: Atorvastatin Calcium 20 MG TAB PO SCH (21:35)
[2021-02-13] MEDS: Lantus 1000 UNITS/10 ML VIAL SC SCH (21:53)
[2021-02-14 04:42] LABS: #Eosinphils 0.3 10x3/uL (0.0-0.5); #Monocytes 1.1 10x3/uL (0.0-1.1); #Neutrophils 6.6 10x3/uL (1.5-8.4); %Basophils 0.4 % (0.0-2.0); %Eosinophils 2.9 % (0.0-6.0); %Monocytes 10.9 % (0.0-10.0); %Neutrophils 64.8 % (40.0-75.0); Hemoglobin 8.5 g/dL (12.0-15.5); Mean Corpuscular HGB CONC 31.8 g/dL (32.0-36.0); Mean Corpuscular Hemoglobin 29.9 pg (27.0-33.0); Mean Platelet Volume 9.4 fl (7.4-10.4); Platelet Count 319 10x3/uL (150-450); RBC Distribution Width 16.2 % (11.5-14.5); Red Blood Cell (RBC) Count 2.84 10x6/uL (3.90-5.03); White Blood Cell (WBC) Count 10.2 10x3/uL (3.5-10.5)
[2021-02-14 05:00] LABS: ALT (SGPT) 11 U/L (8-55); AST (SGOT) 9 U/L (5-34); Albumin 3.2 g/dL (3.5-5.0); Alkaline Phosphatase 142 U/L (40-110); Anion Gap 17 mmol/L (10-20); BUN (Urea Nitrogen) 27 mg/dL (9.8-20.1); Bilirubin, Total 0.4 mg/dL (0.2-1.2); Calc. Creatinine Clearance 26 mL/min (70-130); Calcium 9.6 mg/dL (7.8-10.44); Carbon Dioxide 30 mmol/L (22-29); Chloride 101 mmol/L (98-107); Globulin 3.1 g/dL (2.4-3.5); Glucose 68 mg/dL (70-105); Potassium 3.8 mmol/L (3.5-5.1); Protein, Total 6.3 g/dL (6.0-8.3); Sodium 144 mmol/L (136-145)
[2021-02-14] MEDS: Acetylcysteine 800 MG/4 ML VIAL INH SCH ×3 (06:35→18:54)
[2021-02-14] MEDS: Aspirin 81 mg Enteric Coated Tablet PO SCH (09:39)
[2021-02-14] MEDS: Ferrous Sulfate 325 MG TAB PO SCH (09:39)
[2021-02-14] MEDS: Benzonatate 100 MG CAP PO SCH ×3 (09:39→22:05)
[2021-02-14] MEDS: Cholecalciferol 1,000 UNITS (25 MCG) TAB PO SCH (09:39)
[2021-02-14] MEDS: Amlodipine 5 MG TAB PO SCH (09:39)
[2021-02-14] MEDS: Sevelamer Carbonate 800 MG TAB PO SCH ×3 (09:39→17:17)
[2021-02-14] MEDS: Enoxaparin Sodium 40 MG/0.4 ML SYRINGE SC SCH ×2 (09:39→22:06)
[2021-02-14] MEDS: Ascorbic Acid 500 mg Chewable Tablet PO SCH (09:39)
[2021-02-14] MEDS: Polyethylene Glycol 3350 17 GM Packet PO SCH (09:40)
[2021-02-14] MEDS: guaiFENesin ER 600 MG TAB PO SCH ×2 (09:40→22:05)
[2021-02-14] MEDS: Torsemide 20 MG TAB PO SCH (09:40)
[2021-02-14] MEDS: Sodium Bicarbonate Tab 325 MG TAB PO SCH ×3 (09:40→22:06)
[2021-02-14] MEDS: methylPREDNISolone Sod Succ 40 MG VIAL IVP SCH (09:40)
[2021-02-14] MEDS: Folic Acid/Vit B Comp W-C PO SCH (09:40)
[2021-02-14] MEDS: Labetalol HCl 200 MG TAB PO SCH ×2 (09:40→22:06)
[2021-02-14] MEDS: HumaLOG 300 UNITS/3 ML VIAL SC PRN ×3 (12:05→22:07)
[2021-02-14] MEDS: Atorvastatin Calcium 20 MG TAB PO SCH (22:03)
[2021-02-14] MEDS: Atorvastatin Calcium 10 MG TAB PO SCH (22:04)
[2021-02-14] MEDS: Famotidine/PF 20 mg/2ml Vial SLOW IVP SCH (22:07)
[2021-02-14] MEDS: Nicotine 21 MG PATCH TD SCH (22:08)
[2021-02-15] MEDS: Acetylcysteine 800 MG/4 ML VIAL INH SCH ×4 (01:21→19:40)
[2021-02-15 04:50] LABS: #Eosinphils 0.3 10x3/uL (0.0-0.5); #Neutrophils 7.9 10x3/uL (1.5-8.4); %Basophils 0.3 % (0.0-2.0); %Eosinophils 2.3 % (0.0-6.0); %Monocytes 8.5 % (0.0-10.0); %Neutrophils 67.7 % (40.0-75.0); Hemoglobin 8.1 g/dL (12.0-15.5); Mean Corpuscular HGB CONC 31.6 g/dL (32.0-36.0); Mean Corpuscular Hemoglobin 30.1 pg (27.0-33.0); Mean Corpuscular Volume 95.2 fl (81.6-98.3); Mean Platelet Volume 9.7 fl (7.4-10.4); Platelet Count 334 10x3/uL (150-450); RBC Distribution Width 16.3 % (11.5-14.5); Red Blood Cell (RBC) Count 2.69 10x6/uL (3.90-5.03); White Blood Cell (WBC) Count 11.6 10x3/uL (3.5-10.5)
[2021-02-15 05:13] LABS: ALT (SGPT) 11 U/L (8-55); AST (SGOT) 8 U/L (5-34); Albumin 3.1 g/dL (3.5-5.0); Alkaline Phosphatase 134 U/L (40-110); Anion Gap 19 mmol/L (10-20); BUN (Urea Nitrogen) 56 mg/dL (9.8-20.1); Bilirubin, Total 0.3 mg/dL (0.2-1.2); Calc. Creatinine Clearance 15 mL/min (70-130); Calcium 9.4 mg/dL (7.8-10.44); Carbon Dioxide 27 mmol/L (22-29); Chloride 102 mmol/L (98-107); Globulin 2.9 g/dL (2.4-3.5); Glucose 61 mg/dL (70-105); Potassium 3.8 mmol/L (3.5-5.1); Sodium 144 mmol/L (136-145)
[2021-02-15] MEDS: Polyethylene Glycol 3350 17 GM Packet PO SCH (10:11)
[2021-02-15] MEDS: Folic Acid/Vit B Comp W-C PO SCH (10:11)
[2021-02-15] MEDS: Sevelamer Carbonate 800 MG TAB PO SCH ×3 (10:11→19:23)
[2021-02-15] MEDS: methylPREDNISolone Sod Succ 40 MG VIAL IVP SCH (10:11)
[2021-02-15] MEDS: Enoxaparin Sodium 40 MG/0.4 ML SYRINGE SC SCH ×2 (10:11→21:49)
[2021-02-15] MEDS: Sodium Bicarbonate Tab 325 MG TAB PO SCH ×3 (10:12→21:41)
[2021-02-15] MEDS: Aspirin 81 mg Enteric Coated Tablet PO SCH (10:12)
[2021-02-15] MEDS: guaiFENesin ER 600 MG TAB PO SCH ×2 (10:12→21:41)
[2021-02-15] MEDS: Labetalol HCl 200 MG TAB PO SCH ×2 (10:13→21:41)
[2021-02-15] MEDS: Ferrous Sulfate 325 MG TAB PO SCH (10:13)
[2021-02-15] MEDS: Cholecalciferol 1,000 UNITS (25 MCG) TAB PO SCH (10:13)
[2021-02-15] MEDS: Ergocalciferol 1.25 MG(50,000 UNITS) CAP PO SCH (10:13)
[2021-02-15] MEDS: Ascorbic Acid 500 mg Chewable Tablet PO SCH (10:13)
[2021-02-15] MEDS: Benzonatate 100 MG CAP PO SCH ×3 (10:13→21:41)
[2021-02-15] MEDS: Torsemide 20 MG TAB PO SCH (10:14)
[2021-02-15] MEDS: Amlodipine 5 MG TAB PO SCH (10:14)
[2021-02-15] MEDS: HumaLOG 300 UNITS/3 ML VIAL SC PRN (12:43)
[2021-02-15] MEDS: Atorvastatin Calcium 20 MG TAB PO SCH (21:41)
[2021-02-15] MEDS: Lantus 1000 UNITS/10 ML VIAL SC SCH (21:41)
[2021-02-15] MEDS: Famotidine/PF 20 mg/2ml Vial SLOW IVP SCH (21:42)
[2021-02-16] MEDS: Nicotine 21 MG PATCH TD SCH ×2 (00:01→23:31)
[2021-02-16] MEDS: Acetylcysteine 800 MG/4 ML VIAL INH SCH ×6 (01:15→19:00)
[2021-02-16 04:02] LABS: Anion Gap 16 mmol/L (10-20); BUN (Urea Nitrogen) 26 mg/dL (9.8-20.1); Calc. Creatinine Clearance 28 mL/min (70-130); Carbon Dioxide 27 mmol/L (22-29); Chloride 100 mmol/L (98-107); Potassium 3.7 mmol/L (3.5-5.1); Sodium 139 mmol/L (136-145)
[2021-02-16 04:03] LABS: ALT (SGPT) 12 U/L (8-55); AST (SGOT) 11 U/L (5-34); Albumin 3.1 g/dL (3.5-5.0); Alkaline Phosphatase 123 U/L (40-110); Bilirubin, Total 0.3 mg/dL (0.2-1.2); Calcium 8.8 mg/dL (7.8-10.44); Globulin 2.9 g/dL (2.4-3.5); Glucose 74 mg/dL (70-105)
[2021-02-16] MEDS: Acetaminophen 325 MG TAB PO PRN (04:14)
[2021-02-16 04:28] LABS: Hemoglobin 8.1 g/dL (12.0-15.5); Mean Corpuscular HGB CONC 31.2 g/dL (32.0-36.0); Mean Corpuscular Hemoglobin 29.3 pg (27.0-33.0); Mean Corpuscular Volume 94.2 fl (81.6-98.3); Mean Platelet Volume 9.2 fl (7.4-10.4); Platelet Count 327 10x3/uL (150-450); RBC Distribution Width 16.5 % (11.5-14.5); Red Blood Cell (RBC) Count 2.76 10x6/uL (3.90-5.03)
[2021-02-16 05:54] LABS: MDiff Complete? YES
[2021-02-16 06:20] LABS: Band 8 % (5-11); Eosinophils 2 % (0-10); Lymphocytes 16 % (21-51); Monocytes 11 % (0-10); Neutrophil 63 % (42-75); Nucleated RBC 1 % (0)
[2021-02-16 06:22] LABS: Anisocytosis SLIGHT = 6-15 cells (100X) (0-5/hpf); Hypochromia SLIGHT = 6-15 cells (100X) (0-5/hpf); Microcytosis SLIGHT = 6-15 cells (100X) (0-5/hpf); Platelet Morphology Comment Appears Adequate
[2021-02-16] MEDS: Polyethylene Glycol 3350 17 GM Packet PO SCH (08:52)
[2021-02-16] MEDS: Enoxaparin Sodium 40 MG/0.4 ML SYRINGE SC SCH ×2 (08:53→21:23)
[2021-02-16] MEDS: Ascorbic Acid 500 mg Chewable Tablet PO SCH (08:53)
[2021-02-16] MEDS: Sevelamer Carbonate 800 MG TAB PO SCH ×3 (08:53→16:54)
[2021-02-16] MEDS: Aspirin 81 mg Enteric Coated Tablet PO SCH (08:54)
[2021-02-16] MEDS: Amlodipine 5 MG TAB PO SCH (08:54)
[2021-02-16] MEDS: Sodium Bicarbonate Tab 325 MG TAB PO SCH ×3 (08:55→21:22)
[2021-02-16] MEDS: Benzonatate 100 MG CAP PO SCH ×3 (08:55→21:22)
[2021-02-16] MEDS: Folic Acid/Vit B Comp W-C PO SCH (08:56)
[2021-02-16] MEDS: Ferrous Sulfate 325 MG TAB PO SCH (08:56)
[2021-02-16] MEDS: Dexamethasone 20 MG/5 ML VIAL SLOW IVP SCH (08:56)
[2021-02-16] MEDS: Cholecalciferol 1,000 UNITS (25 MCG) TAB PO SCH (08:56)
[2021-02-16] MEDS ORDERED: Dexamethasone 4 MG in Sodium Chloride 0.9% 50 ML IVPB SCH (09:00)
[2021-02-16] MEDS ORDERED: Dexamethasone 20 MG/5 ML VIAL IVPB SCH (09:00)
[2021-02-16] MEDS: Labetalol HCl 200 MG TAB PO SCH ×2 (09:04→21:23)
[2021-02-16] MEDS: Torsemide 20 MG TAB PO SCH (09:04)
[2021-02-16] MEDS: guaiFENesin ER 600 MG TAB PO SCH ×2 (09:04→21:21)
[2021-02-16] MEDS: HumaLOG 300 UNITS/3 ML VIAL SC PRN ×3 (12:20→21:26)
[2021-02-16] MEDS: Atorvastatin Calcium 20 MG TAB PO SCH (21:21)
[2021-02-16] MEDS: Lantus 1000 UNITS/10 ML VIAL SC SCH (21:24)
[2021-02-16] MEDS: Famotidine/PF 20 mg/2ml Vial SLOW IVP SCH (21:27)
[2021-02-17] MEDS: Acetylcysteine 800 MG/4 ML VIAL INH SCH ×3 (06:40→19:00)
[2021-02-17 07:09] LABS: Hemoglobin 7.6 g/dL (12.0-15.5)
[2021-02-17 07:44] LABS: ALT (SGPT) 13 U/L (8-55); AST (SGOT) 9 U/L (5-34); Alkaline Phosphatase 119 U/L (40-110); Anion Gap 17 mmol/L (10-20); BUN (Urea Nitrogen) 56 mg/dL (9.8-20.1); Bilirubin, Total 0.3 mg/dL (0.2-1.2); Calc. Creatinine Clearance 14 mL/min (70-130); Carbon Dioxide 27 mmol/L (22-29); Chloride 101 mmol/L (98-107); Globulin 2.9 g/dL (2.4-3.5); Glucose 126 mg/dL (70-105); Potassium 3.6 mmol/L (3.5-5.1); Protein, Total 5.9 g/dL (6.0-8.3); Sodium 141 mmol/L (136-145)
[2021-02-17] MEDS: Benzonatate 100 MG CAP PO SCH ×3 (11:27→21:27)
[2021-02-17] MEDS: guaiFENesin ER 600 MG TAB PO SCH ×2 (11:27→21:27)
[2021-02-17] MEDS: Ferrous Sulfate 325 MG TAB PO SCH (11:30)
[2021-02-17] MEDS: Folic Acid/Vit B Comp W-C PO SCH (11:30)
[2021-02-17] MEDS: Sevelamer Carbonate 800 MG TAB PO SCH ×3 (11:30→17:40)
[2021-02-17] MEDS: Ascorbic Acid 500 mg Chewable Tablet PO SCH (11:31)
[2021-02-17] MEDS: Aspirin 81 mg Enteric Coated Tablet PO SCH (11:31)
[2021-02-17] MEDS: Enoxaparin Sodium 40 MG/0.4 ML SYRINGE SC SCH ×2 (11:31→21:28)
[2021-02-17] MEDS: Torsemide 20 MG TAB PO SCH (11:32)
[2021-02-17] MEDS: Labetalol HCl 200 MG TAB PO SCH ×2 (11:32→21:27)
[2021-02-17] MEDS: Cholecalciferol 1,000 UNITS (25 MCG) TAB PO SCH (11:32)
[2021-02-17] MEDS: Dexamethasone 20 MG/5 ML VIAL SLOW IVP SCH (11:33)
[2021-02-17] MEDS: Polyethylene Glycol 3350 17 GM Packet PO SCH (11:34)
[2021-02-17] MEDS: Amlodipine 5 MG TAB PO SCH (11:56)
[2021-02-17] MEDS: Sodium Bicarbonate Tab 325 MG TAB PO SCH ×3 (11:56→21:27)
[2021-02-17] MEDS: Atorvastatin Calcium 20 MG TAB PO SCH (21:26)
[2021-02-17] MEDS: Lantus 1000 UNITS/10 ML VIAL SC SCH (21:28)
[2021-02-17] MEDS: Famotidine/PF 20 mg/2ml Vial SLOW IVP SCH (21:28)
[2021-02-17] MEDS: Nicotine 21 MG PATCH TD SCH (23:43)
[2021-02-18] MEDS: Acetylcysteine 800 MG/4 ML VIAL INH SCH ×5 (01:30→21:27)
[2021-02-18 05:22] LABS: #Eosinphils 0.2 10x3/uL (0.0-0.5); #Monocytes 1.1 10x3/uL (0.0-1.1); #Neutrophils 10.2 10x3/uL (1.5-8.4); %Basophils 0.3 % (0.0-2.0); %Eosinophils 1.5 % (0.0-6.0); %Lymphocytes 15.4 % (18.0-47.0); %Monocytes 7.8 % (0.0-10.0); Hemoglobin 7.8 g/dL (12.0-15.5); Mean Corpuscular HGB CONC 30.6 g/dL (32.0-36.0); Mean Corpuscular Hemoglobin 29.3 pg (27.0-33.0); Mean Corpuscular Volume 95.9 fl (81.6-98.3); Mean Platelet Volume 9.1 fl (7.4-10.4); Platelet Count 354 10x3/uL (150-450); RBC Distribution Width 16.3 % (11.5-14.5); Red Blood Cell (RBC) Count 2.66 10x6/uL (3.90-5.03); White Blood Cell (WBC) Count 14.3 10x3/uL (3.5-10.5)
[2021-02-18 05:27] LABS: ALT (SGPT) 15 U/L (8-55); AST (SGOT) 11 U/L (5-34); Albumin 3.1 g/dL (3.5-5.0); Alkaline Phosphatase 113 U/L (40-110); Anion Gap 16 mmol/L (10-20); BUN (Urea Nitrogen) 20 mg/dL (9.8-20.1); Bilirubin, Total 0.3 mg/dL (0.2-1.2); Calc. Creatinine Clearance 29 mL/min (70-130); Carbon Dioxide 28 mmol/L (22-29); Chloride 100 mmol/L (98-107); Glucose 79 mg/dL (70-105); Protein, Total 6.1 g/dL (6.0-8.3); Sodium 140 mmol/L (136-145)
[2021-02-18] MEDS: Folic Acid/Vit B Comp W-C PO SCH (09:46)
[2021-02-18] MEDS: Enoxaparin Sodium 40 MG/0.4 ML SYRINGE SC SCH (09:46)
[2021-02-18] MEDS: Dexamethasone 20 MG/5 ML VIAL SLOW IVP SCH (09:46)
[2021-02-18] MEDS: Ascorbic Acid 500 mg Chewable Tablet PO SCH (09:47)
[2021-02-18] MEDS: Sevelamer Carbonate 800 MG TAB PO SCH ×3 (09:47→17:24)
[2021-02-18] MEDS: Aspirin 81 mg Enteric Coated Tablet PO SCH (09:47)
[2021-02-18] MEDS: Labetalol HCl 200 MG TAB PO SCH ×2 (09:47→21:29)
[2021-02-18] MEDS: Amlodipine 5 MG TAB PO SCH (09:47)
[2021-02-18] MEDS: Cholecalciferol 1,000 UNITS (25 MCG) TAB PO SCH (09:47)
[2021-02-18] MEDS: Sodium Bicarbonate Tab 325 MG TAB PO SCH ×3 (09:47→21:21)
[2021-02-18] MEDS: Torsemide 20 MG TAB PO SCH (09:47)
[2021-02-18] MEDS: Benzonatate 100 MG CAP PO SCH ×3 (09:47→21:21)
[2021-02-18] MEDS: Ferrous Sulfate 325 MG TAB PO SCH (09:47)
[2021-02-18] MEDS: guaiFENesin ER 600 MG TAB PO SCH ×2 (09:48→21:21)
[2021-02-18] MEDS: Polyethylene Glycol 3350 17 GM Packet PO SCH (09:48)
[2021-02-18] MEDS: HumaLOG 300 UNITS/3 ML VIAL SC PRN ×2 (13:33→21:22)
[2021-02-18] MEDS: Famotidine 20 MG TAB PO SCH (21:21)
[2021-02-18] MEDS: Atorvastatin Calcium 20 MG TAB PO SCH (21:21)
[2021-02-18] MEDS: Lantus 1000 UNITS/10 ML VIAL SC SCH (21:28)
[2021-02-18] MEDS: Nicotine 21 MG PATCH TD SCH (22:24)
[2021-02-19] MEDS: Acetylcysteine 800 MG/4 ML VIAL INH SCH ×4 (01:15→19:30)
[2021-02-19 06:45] LABS: Hemoglobin 7.8 g/dL (12.0-15.5)
[2021-02-19 06:51] LABS: ALT (SGPT) 14 U/L (8-55); AST (SGOT) 9 U/L (5-34); Albumin 3.1 g/dL (3.5-5.0); Alkaline Phosphatase 108 U/L (40-110); Anion Gap 19 mmol/L (10-20); BUN (Urea Nitrogen) 40 mg/dL (9.8-20.1); Bilirubin, Total 0.2 mg/dL (0.2-1.2); Calc. Creatinine Clearance 14 mL/min (70-130); Carbon Dioxide 26 mmol/L (22-29); Chloride 100 mmol/L (98-107); Glucose 119 mg/dL (70-105); Potassium 3.9 mmol/L (3.5-5.1); Protein, Total 6.1 g/dL (6.0-8.3); Sodium 141 mmol/L (136-145)
[2021-02-19] MEDS: Sevelamer Carbonate 800 MG TAB PO SCH ×3 (12:08→17:22)
[2021-02-19] MEDS: guaiFENesin ER 600 MG TAB PO SCH ×2 (12:08→20:55)
[2021-02-19] MEDS: Ascorbic Acid 500 mg Chewable Tablet PO SCH (12:09)
[2021-02-19] MEDS: Cholecalciferol 1,000 UNITS (25 MCG) TAB PO SCH (12:09)
[2021-02-19] MEDS: Famotidine 20 MG TAB PO SCH ×2 (12:09→20:55)
[2021-02-19] MEDS: Torsemide 20 MG TAB PO SCH (12:10)
[2021-02-19] MEDS: Sodium Bicarbonate Tab 325 MG TAB PO SCH ×3 (12:10→20:55)
[2021-02-19] MEDS: Amlodipine 5 MG TAB PO SCH (12:10)
[2021-02-19] MEDS: Benzonatate 100 MG CAP PO SCH ×3 (12:10→20:55)
[2021-02-19] MEDS: Folic Acid/Vit B Comp W-C PO SCH (12:10)
[2021-02-19] MEDS: Aspirin 81 mg Enteric Coated Tablet PO SCH (12:11)
[2021-02-19] MEDS: Dexamethasone 20 MG/5 ML VIAL SLOW IVP SCH (12:11)
[2021-02-19] MEDS: Enoxaparin Sodium 30 MG/0.3 ML SYRINGE SC SCH (12:12)
[2021-02-19] MEDS: Ferrous Sulfate 325 MG TAB PO SCH (12:12)
[2021-02-19] MEDS: Polyethylene Glycol 3350 17 GM Packet PO SCH (12:13)
[2021-02-19] MEDS: EPOETIN ALFA-EPBX (ESRD) 3,000 UNIT/ML VIAL SC SCH (17:23)
[2021-02-19] MEDS: EPOETIN ALFA-EPBX (ESRD) 2,000 UNIT/ML VIAL SC SCH (17:23)
[2021-02-19] MEDS: Atorvastatin Calcium 20 MG TAB PO SCH (20:55)
[2021-02-19] MEDS: Lantus 1000 UNITS/10 ML VIAL SC SCH (20:59)
[2021-02-19] MEDS: Labetalol HCl 200 MG TAB PO SCH ×2 (21:09→22:35)
[2021-02-20] MEDS: Nicotine 21 MG PATCH TD SCH ×2 (01:07→23:59)
[2021-02-20] MEDS: Acetylcysteine 800 MG/4 ML VIAL INH SCH ×5 (01:15→22:41)
[2021-02-20 07:46] LABS: #Basophils 0.1 10x3/uL (0.0-0.2); #Eosinphils 0.2 10x3/uL (0.0-0.5); #Monocytes 1.3 10x3/uL (0.0-1.1); #Neutrophils 13.2 10x3/uL (1.5-8.4); %Basophils 0.3 % (0.0-2.0); %Lymphocytes 9.8 % (18.0-47.0); %Monocytes 7.9 % (0.0-10.0); %Neutrophils 78.8 % (40.0-75.0); Hemoglobin 7.7 g/dL (12.0-15.5); Mean Corpuscular HGB CONC 30.2 g/dL (32.0-36.0); Mean Corpuscular Hemoglobin 29.1 pg (27.0-33.0); Mean Corpuscular Volume 96.2 fl (81.6-98.3); Mean Platelet Volume 9.1 fl (7.4-10.4); Platelet Count 357 10x3/uL (150-450); RBC Distribution Width 16.4 % (11.5-14.5); Red Blood Cell (RBC) Count 2.65 10x6/uL (3.90-5.03); White Blood Cell (WBC) Count 16.7 10x3/uL (3.5-10.5)
[2021-02-20] MEDS ORDERED: Acetylcysteine 800 MG/4 ML VIAL ONE (07:46)
[2021-02-20 08:00] LABS: ALT (SGPT) 12 U/L (8-55); AST (SGOT) 9 U/L (5-34); Albumin 3.1 g/dL (3.5-5.0); Alkaline Phosphatase 116 U/L (40-110); Anion Gap 20 mmol/L (10-20); BUN (Urea Nitrogen) 60 mg/dL (9.8-20.1); Bilirubin, Total 0.2 mg/dL (0.2-1.2); Calc. Creatinine Clearance 11 mL/min (70-130); Calcium 9.1 mg/dL (7.8-10.44); Carbon Dioxide 24 mmol/L (22-29); Chloride 101 mmol/L (98-107); Glucose 142 mg/dL (70-105); Potassium 3.8 mmol/L (3.5-5.1); Protein, Total 6.1 g/dL (6.0-8.3); Sodium 141 mmol/L (136-145)
[2021-02-20 09:59] LABS: Hep B Surf Ag Non-Reactive S/CO (NonReactive)
[2021-02-20 10:02] LABS: HBSAg Index 0.12 S/CO (0-0.99)
[2021-02-20] MEDS: Folic Acid/Vit B Comp W-C PO SCH (10:34)
[2021-02-20] MEDS: Labetalol HCl 200 MG TAB PO SCH ×2 (10:34→22:38)
[2021-02-20] MEDS: Sodium Bicarbonate Tab 325 MG TAB PO SCH ×4 (10:34→22:39)
[2021-02-20] MEDS: Sevelamer Carbonate 800 MG TAB PO SCH ×3 (10:34→19:06)
[2021-02-20] MEDS: Famotidine 20 MG TAB PO SCH ×2 (10:35→22:37)
[2021-02-20] MEDS: Amlodipine 5 MG TAB PO SCH (10:35)
[2021-02-20] MEDS: Cholecalciferol 1,000 UNITS (25 MCG) TAB PO SCH (10:36)
[2021-02-20] MEDS: Benzonatate 100 MG CAP PO SCH ×3 (10:36→23:56)
[2021-02-20] MEDS: Aspirin 81 mg Enteric Coated Tablet PO SCH (10:36)
[2021-02-20] MEDS: Dexamethasone 20 MG/5 ML VIAL SLOW IVP SCH (10:36)
[2021-02-20] MEDS: Ascorbic Acid 500 mg Chewable Tablet PO SCH (10:36)
[2021-02-20] MEDS: Ferrous Sulfate 325 MG TAB PO SCH (10:38)
[2021-02-20] MEDS: Enoxaparin Sodium 30 MG/0.3 ML SYRINGE SC SCH (10:38)
[2021-02-20] MEDS: Torsemide 20 MG TAB PO SCH (10:38)
[2021-02-20] MEDS: guaiFENesin ER 600 MG TAB PO SCH ×2 (10:39→23:56)
[2021-02-20 12:18] LABS: HBSAB Concentration Less than 8.00 mIU/mL; Hep B Core Total Ab Non-Reactive (NonReactive); Hep B Core Total Index 0.05 S/CO (0-0.79); Hep B Surf AB Non-Reactive (NonReactive); Hep C IgG Ab Non-Reactive (NonReactive); Hep C Index 0.11 S/CO (0-0.79)
[2021-02-20] MEDS: EPOETIN ALFA-EPBX (ESRD) 2,000 UNIT/ML VIAL SC SCH (13:00)
[2021-02-20] MEDS: EPOETIN ALFA-EPBX (ESRD) 3,000 UNIT/ML VIAL SC SCH (13:00)
[2021-02-20] MEDS: Polyethylene Glycol 3350 17 GM Packet PO SCH (15:51)
[2021-02-20] MEDS: Lantus 1000 UNITS/10 ML VIAL SC SCH (22:30)
[2021-02-20] MEDS: Atorvastatin Calcium 20 MG TAB PO SCH (22:37)
[2021-02-21 05:26] LABS: #Basophils 0.1 10x3/uL (0.0-0.2); #Eosinphils 0.1 10x3/uL (0.0-0.5); #Neutrophils 13.3 10x3/uL (1.5-8.4); %Basophils 0.4 % (0.0-2.0); %Eosinophils 0.8 % (0.0-6.0); %Lymphocytes 11.4 % (18.0-47.0); %Monocytes 6.1 % (0.0-10.0); %Neutrophils 78.3 % (40.0-75.0); Hemoglobin 8.1 g/dL (12.0-15.5); Mean Corpuscular HGB CONC 31.8 g/dL (32.0-36.0); Mean Corpuscular Hemoglobin 29.8 pg (27.0-33.0); Mean Corpuscular Volume 93.8 fl (81.6-98.3); Mean Platelet Volume 8.9 fl (7.4-10.4); Platelet Count 353 10x3/uL (150-450); RBC Distribution Width 16.5 % (11.5-14.5); Red Blood Cell (RBC) Count 2.72 10x6/uL (3.90-5.03)
[2021-02-21 06:08] LABS: ALT (SGPT) 14 U/L (8-55); AST (SGOT) 10 U/L (5-34); Albumin 3.1 g/dL (3.5-5.0); Alkaline Phosphatase 129 U/L (40-110); Anion Gap 17 mmol/L (10-20); BUN (Urea Nitrogen) 24 mg/dL (9.8-20.1); Bilirubin, Total 0.2 mg/dL (0.2-1.2); Calc. Creatinine Clearance 24 mL/min (70-130); Calcium 8.9 mg/dL (7.8-10.44); Carbon Dioxide 27 mmol/L (22-29); Chloride 101 mmol/L (98-107); Glucose 135 mg/dL (70-105); Potassium 3.8 mmol/L (3.5-5.1); Protein, Total 6.1 g/dL (6.0-8.3); Sodium 141 mmol/L (136-145)
[2021-02-21] MEDS: Acetylcysteine 800 MG/4 ML VIAL INH SCH ×2 (09:08→13:47)
[2021-02-21] MEDS: Ascorbic Acid 500 mg Chewable Tablet PO SCH (10:08)
[2021-02-21] MEDS: guaiFENesin ER 600 MG TAB PO SCH ×2 (10:08→22:14)
[2021-02-21] MEDS: Folic Acid/Vit B Comp W-C PO SCH (10:08)
[2021-02-21] MEDS: Famotidine 20 MG TAB PO SCH ×2 (10:09→22:13)
[2021-02-21] MEDS: Amlodipine 5 MG TAB PO SCH (10:09)
[2021-02-21] MEDS: Aspirin 81 mg Enteric Coated Tablet PO SCH (10:09)
[2021-02-21] MEDS: predniSONE 20 MG TAB PO SCH (10:09)
[2021-02-21] MEDS: Sevelamer Carbonate 800 MG TAB PO SCH ×3 (10:09→17:42)
[2021-02-21] MEDS: Labetalol HCl 200 MG TAB PO SCH ×2 (10:10→22:13)
[2021-02-21] MEDS: Cholecalciferol 1,000 UNITS (25 MCG) TAB PO SCH (10:10)
[2021-02-21] MEDS: Benzonatate 100 MG CAP PO SCH ×3 (10:10→22:13)
[2021-02-21] MEDS: Enoxaparin Sodium 30 MG/0.3 ML SYRINGE SC SCH (10:12)
[2021-02-21] MEDS: Torsemide 20 MG TAB PO SCH (10:12)
[2021-02-21] MEDS: Polyethylene Glycol 3350 17 GM Packet PO SCH (10:13)
[2021-02-21] MEDS: Ferrous Sulfate 325 MG TAB PO SCH (10:13)
[2021-02-21] MEDS: Sodium Bicarbonate Tab 325 MG TAB PO SCH ×2 (15:26→22:12)
[2021-02-21] MEDS: HumaLOG 300 UNITS/3 ML VIAL SC PRN ×3 (17:43→22:15)
[2021-02-21] MEDS ORDERED: Lantus 1000 UNITS/10 ML VIAL SC SCH (18:07)
[2021-02-21] MEDS: Atorvastatin Calcium 20 MG TAB PO SCH (22:13)
[2021-02-21] MEDS: Lantus 1000 UNITS/10 ML VIAL SC SCH (22:14)
[2021-02-21] MEDS: Nicotine 21 MG PATCH TD SCH (22:22)
[2021-02-22 05:39] LABS: #Basophils 0.1 10x3/uL (0.0-0.2); #Eosinphils 0.1 10x3/uL (0.0-0.5); #Monocytes 1.3 10x3/uL (0.0-1.1); #Neutrophils 12.8 10x3/uL (1.5-8.4); %Basophils 0.4 % (0.0-2.0); %Eosinophils 0.7 % (0.0-6.0); %Lymphocytes 10.8 % (18.0-47.0); %Monocytes 7.6 % (0.0-10.0); %Neutrophils 77.3 % (40.0-75.0); Mean Corpuscular HGB CONC 31.5 g/dL (32.0-36.0); Mean Corpuscular Hemoglobin 29.5 pg (27.0-33.0); Mean Corpuscular Volume 93.7 fl (81.6-98.3); Platelet Count 367 10x3/uL (150-450); RBC Distribution Width 16.7 % (11.5-14.5); Red Blood Cell (RBC) Count 2.71 10x6/uL (3.90-5.03); White Blood Cell (WBC) Count 16.5 10x3/uL (3.5-10.5)
[2021-02-22 06:13] LABS: ALT (SGPT) 13 U/L (8-55); AST (SGOT) 8 U/L (5-34); Albumin 3.2 g/dL (3.5-5.0); Alkaline Phosphatase 132 U/L (40-110); Anion Gap 21 mmol/L (10-20); BUN (Urea Nitrogen) 47 mg/dL (9.8-20.1); Bilirubin, Total 0.2 mg/dL (0.2-1.2); Calc. Creatinine Clearance 14 mL/min (70-130); Calcium 9.5 mg/dL (7.8-10.44); Carbon Dioxide 25 mmol/L (22-29); Chloride 103 mmol/L (98-107); Globulin 3.2 g/dL (2.4-3.5); Glucose 116 mg/dL (70-105); Potassium 3.7 mmol/L (3.5-5.1); Protein, Total 6.4 g/dL (6.0-8.3); Sodium 145 mmol/L (136-145)
[2021-02-22] MEDS: Sodium Bicarbonate Tab 325 MG TAB PO SCH ×3 (09:27→22:19)
[2021-02-22] MEDS: Sevelamer Carbonate 800 MG TAB PO SCH ×3 (09:27→19:43)
[2021-02-22] MEDS: Folic Acid/Vit B Comp W-C PO SCH (09:28)
[2021-02-22] MEDS: Cholecalciferol 1,000 UNITS (25 MCG) TAB PO SCH (09:28)
[2021-02-22] MEDS: Benzonatate 100 MG CAP PO SCH ×3 (09:28→22:11)
[2021-02-22] MEDS: Ergocalciferol 1.25 MG(50,000 UNITS) CAP PO SCH (09:28)
[2021-02-22] MEDS: Ascorbic Acid 500 mg Chewable Tablet PO SCH (09:29)
[2021-02-22] MEDS: predniSONE 20 MG TAB PO SCH (09:29)
[2021-02-22] MEDS: Aspirin 81 mg Enteric Coated Tablet PO SCH (09:29)
[2021-02-22] MEDS: Famotidine 20 MG TAB PO SCH ×2 (09:29→22:11)
[2021-02-22] MEDS: Enoxaparin Sodium 30 MG/0.3 ML SYRINGE SC SCH (09:30)
[2021-02-22] MEDS: Ferrous Sulfate 325 MG TAB PO SCH (09:30)
[2021-02-22] MEDS: Lantus 1000 UNITS/10 ML VIAL SC SCH (09:31)
[2021-02-22] MEDS: guaiFENesin ER 600 MG TAB PO SCH ×2 (09:41→22:12)
[2021-02-22] MEDS: Polyethylene Glycol 3350 17 GM Packet PO SCH (09:41)
[2021-02-22] MEDS: Torsemide 20 MG TAB PO SCH (09:48)
[2021-02-22] MEDS: Amlodipine 5 MG TAB PO SCH (09:48)
[2021-02-22] MEDS: Labetalol HCl 200 MG TAB PO SCH ×4 (09:48→22:13)
[2021-02-22] MEDS: EPOETIN ALFA-EPBX (ESRD) 2,000 UNIT/ML VIAL SC SCH (10:18)
[2021-02-22] MEDS: EPOETIN ALFA-EPBX (ESRD) 3,000 UNIT/ML VIAL SC SCH (10:18)
[2021-02-22] MEDS: HumaLOG 300 UNITS/3 ML VIAL SC PRN ×2 (12:36→22:17)
[2021-02-22] MEDS ORDERED: Lantus 1000 UNITS/10 ML VIAL SC SCH (21:00)
[2021-02-22] MEDS: Atorvastatin Calcium 20 MG TAB PO SCH (22:10)
[2021-02-22] MEDS: Nicotine 21 MG PATCH TD SCH (22:42)
[2021-02-23 06:49] LABS: #Basophils 0.1 10x3/uL (0.0-0.2); #Eosinphils 0.1 10x3/uL (0.0-0.5); #Monocytes 1.2 10x3/uL (0.0-1.1); #Neutrophils 13.3 10x3/uL (1.5-8.4); %Basophils 0.5 % (0.0-2.0); %Eosinophils 0.6 % (0.0-6.0); %Lymphocytes 12.5 % (18.0-47.0); %Monocytes 6.9 % (0.0-10.0); Hemoglobin 9.2 g/dL (12.0-15.5); Mean Corpuscular HGB CONC 30.9 g/dL (32.0-36.0); Mean Corpuscular Hemoglobin 29.3 pg (27.0-33.0); Mean Corpuscular Volume 94.9 fl (81.6-98.3); Mean Platelet Volume 8.9 fl (7.4-10.4); Platelet Count 416 10x3/uL (150-450); RBC Distribution Width 16.8 % (11.5-14.5); Red Blood Cell (RBC) Count 3.14 10x6/uL (3.90-5.03); White Blood Cell (WBC) Count 17.4 10x3/uL (3.5-10.5)
[2021-02-23 06:50] LABS: ALT (SGPT) 21 U/L (8-55); AST (SGOT) 16 U/L (5-34); Albumin 3.6 g/dL (3.5-5.0); Alkaline Phosphatase 154 U/L (40-110); Anion Gap 19 mmol/L (10-20); BUN (Urea Nitrogen) 26 mg/dL (9.8-20.1); Bilirubin, Total 0.3 mg/dL (0.2-1.2); Calc. Creatinine Clearance 23 mL/min (70-130); Calcium 10.1 mg/dL (7.8-10.44); Carbon Dioxide 25 mmol/L (22-29); Chloride 100 mmol/L (98-107); Globulin 3.8 g/dL (2.4-3.5); Glucose 129 mg/dL (70-105); Potassium 4.1 mmol/L (3.5-5.1); Protein, Total 7.4 g/dL (6.0-8.3); Sodium 140 mmol/L (136-145)
[2021-02-23] MEDS ORDERED: Lantus 1000 UNITS/10 ML VIAL SC SCH (09:00)
[2021-02-23] MEDS ORDERED: Enoxaparin Sodium 30 MG/0.3 ML SYRINGE ONE (09:36)
[2021-02-23] MEDS: Benzonatate 100 MG CAP PO SCH ×3 (09:50→21:48)
[2021-02-23] MEDS: Sodium Bicarbonate Tab 325 MG TAB PO SCH ×3 (09:51→21:49)
[2021-02-23] MEDS: Labetalol HCl 200 MG TAB PO SCH ×2 (09:51→21:49)
[2021-02-23] MEDS: Ascorbic Acid 500 mg Chewable Tablet PO SCH (09:51)
[2021-02-23] MEDS: Sevelamer Carbonate 800 MG TAB PO SCH ×3 (09:51→16:22)
[2021-02-23] MEDS: Cholecalciferol 1,000 UNITS (25 MCG) TAB PO SCH (09:52)
[2021-02-23] MEDS: Ferrous Sulfate 325 MG TAB PO SCH (09:52)
[2021-02-23] MEDS: Folic Acid/Vit B Comp W-C PO SCH (09:52)
[2021-02-23] MEDS: Torsemide 20 MG TAB PO SCH (09:52)
[2021-02-23] MEDS: Amlodipine 5 MG TAB PO SCH (09:52)
[2021-02-23] MEDS: Aspirin 81 mg Enteric Coated Tablet PO SCH (09:52)
[2021-02-23] MEDS: Famotidine 20 MG TAB PO SCH ×2 (09:53→21:48)
[2021-02-23] MEDS: predniSONE 20 MG TAB PO SCH (09:53)
[2021-02-23] MEDS: Enoxaparin Sodium 30 MG/0.3 ML SYRINGE SC SCH (09:56)
[2021-02-23] MEDS: guaiFENesin ER 600 MG TAB PO SCH ×2 (10:02→21:48)
[2021-02-23] MEDS: Polyethylene Glycol 3350 17 GM Packet PO SCH (10:17)
[2021-02-23] MEDS: HumaLOG 300 UNITS/3 ML VIAL SC PRN ×2 (16:21→21:58)
[2021-02-23] MEDS: Atorvastatin Calcium 20 MG TAB PO SCH (21:47)
[2021-02-23] MEDS: Lantus 1000 UNITS/10 ML VIAL SC SCH (21:51)
[2021-02-23] MEDS: Nicotine 21 MG PATCH TD SCH (22:58)
[2021-02-24 04:39] LABS: #Basophils 0.1 10x3/uL (0.0-0.2); #Eosinphils 0.1 10x3/uL (0.0-0.5); #Monocytes 1.6 10x3/uL (0.0-1.1); #Neutrophils 14.6 10x3/uL (1.5-8.4); %Basophils 0.3 % (0.0-2.0); %Eosinophils 0.7 % (0.0-6.0); %Lymphocytes 12.2 % (18.0-47.0); %Monocytes 8.5 % (0.0-10.0); %Neutrophils 76.2 % (40.0-75.0); Hemoglobin 8.4 g/dL (12.0-15.5); Mean Corpuscular HGB CONC 30.5 g/dL (32.0-36.0); Mean Corpuscular Hemoglobin 29.6 pg (27.0-33.0); Mean Corpuscular Volume 96.8 fl (81.6-98.3); Mean Platelet Volume 8.9 fl (7.4-10.4); Platelet Count 413 10x3/uL (150-450); RBC Distribution Width 16.7 % (11.5-14.5); Red Blood Cell (RBC) Count 2.84 10x6/uL (3.90-5.03); White Blood Cell (WBC) Count 19.1 10x3/uL (3.5-10.5)
[2021-02-24 06:10] LABS: ALT (SGPT) 23 U/L (8-55); AST (SGOT) 14 U/L (5-34); Albumin 3.4 g/dL (3.5-5.0); Alkaline Phosphatase 143 U/L (40-110); Anion Gap 19 mmol/L (10-20); BUN (Urea Nitrogen) 67 mg/dL (9.8-20.1); Bilirubin, Total 0.2 mg/dL (0.2-1.2); Calc. Creatinine Clearance 12 mL/min (70-130); Carbon Dioxide 24 mmol/L (22-29); Chloride 99 mmol/L (98-107); Globulin 3.5 g/dL (2.4-3.5); Glucose 154 mg/dL (70-105); Potassium 4.1 mmol/L (3.5-5.1); Protein, Total 6.9 g/dL (6.0-8.3); Sodium 138 mmol/L (136-145)
[2021-02-24] MEDS: Sevelamer Carbonate 800 MG TAB PO SCH ×3 (10:42→17:01)
[2021-02-24] MEDS: Benzonatate 100 MG CAP PO SCH ×3 (10:43→20:56)
[2021-02-24] MEDS: Sodium Bicarbonate Tab 325 MG TAB PO SCH ×3 (10:44→20:56)
[2021-02-24] MEDS: Polyethylene Glycol 3350 17 GM Packet PO SCH (10:44)
[2021-02-24] MEDS: guaiFENesin ER 600 MG TAB PO SCH ×2 (13:11→21:11)
[2021-02-24] MEDS: Famotidine 20 MG TAB PO SCH ×2 (13:11→20:56)
[2021-02-24] MEDS: Amlodipine 5 MG TAB PO SCH (13:20)
[2021-02-24] MEDS: Lantus 1000 UNITS/10 ML VIAL SC SCH ×2 (13:25→21:04)
[2021-02-24] MEDS: Cholecalciferol 1,000 UNITS (25 MCG) TAB PO SCH (13:34)
[2021-02-24] MEDS: Aspirin 81 mg Enteric Coated Tablet PO SCH (13:35)
[2021-02-24] MEDS: Labetalol HCl 200 MG TAB PO SCH (13:35)
[2021-02-24] MEDS: Ascorbic Acid 500 mg Chewable Tablet PO SCH (13:35)
[2021-02-24] MEDS: predniSONE 20 MG TAB PO SCH (13:36)
[2021-02-24] MEDS: Ferrous Sulfate 325 MG TAB PO SCH (13:36)
[2021-02-24] MEDS: Torsemide 20 MG TAB PO SCH (13:37)
[2021-02-24] MEDS: Enoxaparin Sodium 30 MG/0.3 ML SYRINGE SC SCH (13:38)
[2021-02-24] MEDS: EPOETIN ALFA-EPBX (ESRD) 3,000 UNIT/ML VIAL SC SCH (14:38)
[2021-02-24] MEDS: Folic Acid/Vit B Comp W-C PO SCH (14:38)
[2021-02-24] MEDS: EPOETIN ALFA-EPBX (ESRD) 2,000 UNIT/ML VIAL SC SCH (14:39)
[2021-02-24] MEDS: HumaLOG 300 UNITS/3 ML VIAL SC PRN ×2 (17:01→21:00)
[2021-02-24] MEDS: Metoprolol Tartrate 25 MG TAB PO SCH (20:55)
[2021-02-24] MEDS: Atorvastatin Calcium 20 MG TAB PO SCH (20:55)
[2021-02-24] MEDS: Nicotine 21 MG PATCH TD SCH (23:25)
[2021-02-25] MEDS: HumaLOG 300 UNITS/3 ML VIAL SC PRN ×4 (05:48→21:19)
[2021-02-25 06:23] LABS: Anion Gap 23 mmol/L (10-20); BUN (Urea Nitrogen) 44 mg/dL (9.8-20.1); Calc. Creatinine Clearance 16 mL/min (70-130); Carbon Dioxide 24 mmol/L (22-29); Chloride 97 mmol/L (98-107); Potassium 4.5 mmol/L (3.5-5.1); Sodium 139 mmol/L (136-145)
[2021-02-25 06:24] LABS: ALT (SGPT) 26 U/L (8-55); AST (SGOT) 14 U/L (5-34); Albumin 3.8 g/dL (3.5-5.0); Alkaline Phosphatase 166 U/L (40-110); Bilirubin, Total 0.3 mg/dL (0.2-1.2); Calcium 10.7 mg/dL (7.8-10.44); Globulin 4.2 g/dL (2.4-3.5); Glucose 187 mg/dL (70-105)
[2021-02-25] MEDS: Ferrous Sulfate 325 MG TAB PO SCH (09:06)
[2021-02-25] MEDS: Aspirin 81 mg Enteric Coated Tablet PO SCH (09:06)
[2021-02-25] MEDS: guaiFENesin ER 600 MG TAB PO SCH ×2 (09:07→21:16)
[2021-02-25] MEDS: Ascorbic Acid 500 mg Chewable Tablet PO SCH (09:07)
[2021-02-25] MEDS: Sevelamer Carbonate 800 MG TAB PO SCH ×3 (09:08→16:49)
[2021-02-25] MEDS: Benzonatate 100 MG CAP PO SCH ×3 (09:08→21:16)
[2021-02-25] MEDS: Folic Acid/Vit B Comp W-C PO SCH (09:08)
[2021-02-25] MEDS: Sodium Bicarbonate Tab 325 MG TAB PO SCH ×3 (09:09→21:16)
[2021-02-25] MEDS: Cholecalciferol 1,000 UNITS (25 MCG) TAB PO SCH (09:09)
[2021-02-25] MEDS: Metoprolol Tartrate 25 MG TAB PO SCH ×2 (09:09→21:17)
[2021-02-25] MEDS: Polyethylene Glycol 3350 17 GM Packet PO SCH (09:10)
[2021-02-25] MEDS: predniSONE 20 MG TAB PO SCH (09:10)
[2021-02-25] MEDS: Lantus 1000 UNITS/10 ML VIAL SC SCH ×2 (09:10→21:18)
[2021-02-25] MEDS: Famotidine 20 MG TAB PO SCH (09:10)
[2021-02-25] MEDS: Enoxaparin Sodium 30 MG/0.3 ML SYRINGE SC SCH (09:11)
[2021-02-25] MEDS: Torsemide 20 MG TAB PO SCH (09:20)
[2021-02-25] MEDS: Atorvastatin Calcium 20 MG TAB PO SCH (21:16)
[2021-02-25] MEDS: Nicotine 21 MG PATCH TD SCH (23:05)
[2021-02-26 06:41] LABS: ALT (SGPT) 26 U/L (8-55); AST (SGOT) 14 U/L (5-34); Albumin 3.5 g/dL (3.5-5.0); Alkaline Phosphatase 153 U/L (40-110); Anion Gap 25 mmol/L (10-20); BUN (Urea Nitrogen) 70 mg/dL (9.8-20.1); Bilirubin, Total 0.3 mg/dL (0.2-1.2); Calc. Creatinine Clearance 12 mL/min (70-130); Calcium 10.6 mg/dL (7.8-10.44); Carbon Dioxide 24 mmol/L (22-29); Chloride 96 mmol/L (98-107); Globulin 3.8 g/dL (2.4-3.5); Glucose 104 mg/dL (70-105); Potassium 4.9 mmol/L (3.5-5.1); Protein, Total 7.3 g/dL (6.0-8.3); Sodium 140 mmol/L (136-145)
[2021-02-26] MEDS: Cholecalciferol 1,000 UNITS (25 MCG) TAB PO SCH (09:56)
[2021-02-26] MEDS: Sevelamer Carbonate 800 MG TAB PO SCH ×3 (09:56→18:27)
[2021-02-26] MEDS: Folic Acid/Vit B Comp W-C PO SCH (09:56)
[2021-02-26] MEDS: Ascorbic Acid 500 mg Chewable Tablet PO SCH (09:56)
[2021-02-26] MEDS: Sodium Bicarbonate Tab 325 MG TAB PO SCH ×3 (09:56→21:25)
[2021-02-26] MEDS: guaiFENesin ER 600 MG TAB PO SCH ×2 (09:57→20:41)
[2021-02-26] MEDS: Metoprolol Tartrate 25 MG TAB PO SCH ×2 (09:57→21:24)
[2021-02-26] MEDS: Famotidine 20 MG TAB PO SCH (09:57)
[2021-02-26] MEDS: Benzonatate 100 MG CAP PO SCH ×3 (09:57→20:42)
[2021-02-26] MEDS: Aspirin 81 mg Enteric Coated Tablet PO SCH (09:57)
[2021-02-26] MEDS: Ferrous Sulfate 325 MG TAB PO SCH (09:58)
[2021-02-26] MEDS: Enoxaparin Sodium 30 MG/0.3 ML SYRINGE SC SCH (09:58)
[2021-02-26] MEDS: Torsemide 20 MG TAB PO SCH (09:59)
[2021-02-26] MEDS: Lantus 1000 UNITS/10 ML VIAL SC SCH ×2 (09:59→20:41)
[2021-02-26] MEDS: Ergocalciferol 1.25 MG(50,000 UNITS) CAP PO SCH (09:59)
[2021-02-26] MEDS: Polyethylene Glycol 3350 17 GM Packet PO SCH (09:59)
[2021-02-26] MEDS: HumaLOG 300 UNITS/3 ML VIAL SC PRN ×2 (18:28→20:42)
[2021-02-26] MEDS: Atorvastatin Calcium 20 MG TAB PO SCH (20:41)
[2021-02-26] MEDS: Nicotine 21 MG PATCH TD SCH (23:34)
[2021-02-27 04:39] LABS: Hemoglobin 9.3 g/dL (12.0-15.5); Mean Corpuscular HGB CONC 31.4 g/dL (32.0-36.0); Mean Corpuscular Hemoglobin 29.4 pg (27.0-33.0); Mean Corpuscular Volume 93.7 fl (81.6-98.3); Mean Platelet Volume 9.2 fl (7.4-10.4); Platelet Count 432 10x3/uL (150-450); RBC Distribution Width 16.5 % (11.5-14.5); Red Blood Cell (RBC) Count 3.16 10x6/uL (3.90-5.03); White Blood Cell (WBC) Count 20.8 10x3/uL (3.5-10.5)
[2021-02-27 04:59] LABS: ALT (SGPT) 28 U/L (8-55); AST (SGOT) 27 U/L (5-34); Albumin 3.2 g/dL (3.5-5.0); Alkaline Phosphatase 154 U/L (40-110); Anion Gap 28 mmol/L (10-20); BUN (Urea Nitrogen) 85 mg/dL (9.8-20.1); Bilirubin, Total 0.4 mg/dL (0.2-1.2); Calc. Creatinine Clearance 10 mL/min (70-130); Calcium 9.7 mg/dL (7.8-10.44); Carbon Dioxide 19 mmol/L (22-29); Chloride 96 mmol/L (98-107); Globulin 4.1 g/dL (2.4-3.5); Glucose 115 mg/dL (70-105); Potassium 5.5 mmol/L (3.5-5.1); Protein, Total 7.3 g/dL (6.0-8.3); Sodium 137 mmol/L (136-145)
[2021-02-27 06:22] LABS: Band 10 % (5-11); Lymphocytes 6 % (21-51); Metamyelocyte 1 % (0-0); Monocytes 12 % (0-10); Myelocyte 1 % (0-0); Nucleated RBC 1 % (0)
[2021-02-27 06:24] LABS: Anisocytosis SLIGHT = 6-15 cells (100X) (0-5/hpf); Macrocytosis SLIGHT = 6-15 cells (100X) (0-5/hpf); Microcytosis SLIGHT = 6-15 cells (100X) (0-5/hpf); Neutrophil 70 % (42-75)
[2021-02-27 06:25] LABS: Large Platelets SLIGHT; Platelet Clumps SLIGHT; Platelet Morphology Comment Appears Increased; Polychromasia SLIGHT = 2-3 cells (100X) (0-2/hpf)
[2021-02-27 06:28] LABS: MDiff Complete? YES
[2021-02-27 08:51] LABS: Lactic Acid 0.5 mmol/L (0.5-2.2)
[2021-02-27] MEDS: Lantus 1000 UNITS/10 ML VIAL SC SCH ×2 (09:10→21:59)
[2021-02-27] MEDS: Sevelamer Carbonate 800 MG TAB PO SCH ×4 (10:04→18:26)
[2021-02-27] MEDS: Famotidine 20 MG TAB PO SCH (10:04)
[2021-02-27] MEDS: Folic Acid/Vit B Comp W-C PO SCH (10:05)
[2021-02-27] MEDS: Aspirin 81 mg Enteric Coated Tablet PO SCH (10:05)
[2021-02-27] MEDS: guaiFENesin ER 600 MG TAB PO SCH ×2 (10:06→21:47)
[2021-02-27] MEDS: Sodium Bicarbonate Tab 325 MG TAB PO SCH ×3 (10:06→21:48)
[2021-02-27] MEDS: Ascorbic Acid 500 mg Chewable Tablet PO SCH (10:06)
[2021-02-27] MEDS: Benzonatate 100 MG CAP PO SCH ×3 (10:07→21:48)
[2021-02-27] MEDS: Ferrous Sulfate 325 MG TAB PO SCH (10:07)
[2021-02-27] MEDS: Metoprolol Tartrate 25 MG TAB PO SCH ×2 (10:07→21:50)
[2021-02-27] MEDS: Cholecalciferol 1,000 UNITS (25 MCG) TAB PO SCH (10:07)
[2021-02-27] MEDS: Enoxaparin Sodium 30 MG/0.3 ML SYRINGE SC SCH (10:08)
[2021-02-27] MEDS: EPOETIN ALFA-EPBX (ESRD) 2,000 UNIT/ML VIAL SC SCH (10:09)
[2021-02-27] MEDS: EPOETIN ALFA-EPBX (ESRD) 3,000 UNIT/ML VIAL SC SCH (10:09)
[2021-02-27] MEDS: Polyethylene Glycol 3350 17 GM Packet PO SCH (10:18)
[2021-02-27] MEDS: Acetaminophen 325 MG TAB PO PRN (21:49)
[2021-02-27] MEDS: Atorvastatin Calcium 20 MG TAB PO SCH (21:50)
[2021-02-27] MEDS: Nicotine 21 MG PATCH TD SCH (23:46)
[2021-02-28] MEDS ORDERED: Sodium Chloride 0.9% 250 ML 250 ML IV SCH (02:15)
[2021-02-28 05:56] LABS: ALT (SGPT) 34 U/L (8-55); AST (SGOT) 20 U/L (5-34); Albumin 3.5 g/dL (3.5-5.0); Alkaline Phosphatase 218 U/L (40-110); Anion Gap 27 mmol/L (10-20); BUN (Urea Nitrogen) 30 mg/dL (9.8-20.1); Bilirubin, Total 0.5 mg/dL (0.2-1.2); Calc. Creatinine Clearance 19 mL/min (70-130); Calcium 10.1 mg/dL (7.8-10.44); Carbon Dioxide 21 mmol/L (22-29); Chloride 98 mmol/L (98-107); Globulin 4.2 g/dL (2.4-3.5); Glucose 107 mg/dL (70-105); Potassium 4.5 mmol/L (3.5-5.1); Protein, Total 7.7 g/dL (6.0-8.3); Sodium 141 mmol/L (136-145)
[2021-02-28 06:12] LABS: Hemoglobin 9.2 g/dL (12.0-15.5); Mean Corpuscular HGB CONC 29.7 g/dL (32.0-36.0); Mean Corpuscular Hemoglobin 29.2 pg (27.0-33.0); Mean Corpuscular Volume 98.4 fl (81.6-98.3); Mean Platelet Volume 9.1 fl (7.4-10.4); Platelet Count 521 10x3/uL (150-450); Red Blood Cell (RBC) Count 3.15 10x6/uL (3.90-5.03); White Blood Cell (WBC) Count 22.9 10x3/uL (3.5-10.5)
[2021-02-28 07:06] LABS: MDiff Complete? YES
[2021-02-28 07:10] LABS: Band 6 % (5-11); Lymphocytes 12 % (21-51); Metamyelocyte 1 % (0-0); Monocytes 12 % (0-10); Myelocyte 1 % (0-0)
[2021-02-28 07:11] LABS: Eosinophils 1 % (0-10); Neutrophil 67 % (42-75)
[2021-02-28 07:12] LABS: Hypochromia SLIGHT = 6-15 cells (100X) (0-5/hpf)
[2021-02-28 07:13] LABS: Platelet Morphology Comment Appears Increased
[2021-02-28] MEDS ORDERED: Sodium Chloride 0.9% 1,000 ML IV SCH (07:15)
[2021-02-28] MEDS: Sevelamer Carbonate 800 MG TAB PO SCH ×3 (08:50→18:20)
[2021-02-28] MEDS: Cholecalciferol 1,000 UNITS (25 MCG) TAB PO SCH (08:50)
[2021-02-28] MEDS: Ferrous Sulfate 325 MG TAB PO SCH (08:50)
[2021-02-28] MEDS: Folic Acid/Vit B Comp W-C PO SCH (08:51)
[2021-02-28] MEDS: Metoprolol Tartrate 25 MG TAB PO SCH ×2 (08:51→21:54)
[2021-02-28] MEDS: guaiFENesin ER 600 MG TAB PO SCH ×2 (08:51→21:53)
[2021-02-28] MEDS: Benzonatate 100 MG CAP PO SCH ×3 (08:51→21:54)
[2021-02-28] MEDS: Enoxaparin Sodium 30 MG/0.3 ML SYRINGE SC SCH (08:52)
[2021-02-28] MEDS: Famotidine 20 MG TAB PO SCH (08:52)
[2021-02-28] MEDS: Sodium Bicarbonate Tab 325 MG TAB PO SCH ×3 (08:52→21:54)
[2021-02-28] MEDS: Ascorbic Acid 500 mg Chewable Tablet PO SCH (08:52)
[2021-02-28] MEDS: Aspirin 81 mg Enteric Coated Tablet PO SCH (08:52)
[2021-02-28] MEDS: Lantus 1000 UNITS/10 ML VIAL SC SCH ×2 (08:53→21:48)
[2021-02-28] MEDS: Polyethylene Glycol 3350 17 GM Packet PO SCH (13:00)
[2021-02-28] MEDS: Atorvastatin Calcium 20 MG TAB PO SCH (21:55)
[2021-02-28] MEDS: Nicotine 21 MG PATCH TD SCH (23:57)
[2021-03-01 06:46] LABS: Hemoglobin 8.4 g/dL (12.0-15.5); Mean Corpuscular HGB CONC 30.2 g/dL (32.0-36.0); Mean Corpuscular Hemoglobin 29.4 pg (27.0-33.0); Mean Corpuscular Volume 97.2 fl (81.6-98.3); Mean Platelet Volume 8.9 fl (7.4-10.4); Platelet Count 533 10x3/uL (150-450); RBC Distribution Width 16.6 % (11.5-14.5); Red Blood Cell (RBC) Count 2.86 10x6/uL (3.90-5.03); White Blood Cell (WBC) Count 25.6 10x3/uL (3.5-10.5)
[2021-03-01 07:06] LABS: ALT (SGPT) 30 U/L (8-55); AST (SGOT) 19 U/L (5-34); Albumin 3.2 g/dL (3.5-5.0); Alkaline Phosphatase 227 U/L (40-110); Anion Gap 26 mmol/L (10-20); BUN (Urea Nitrogen) 49 mg/dL (9.8-20.1); Bilirubin, Total 0.3 mg/dL (0.2-1.2); Calc. Creatinine Clearance 13 mL/min (70-130); Carbon Dioxide 20 mmol/L (22-29); Chloride 100 mmol/L (98-107); Globulin 3.9 g/dL (2.4-3.5); Glucose 119 mg/dL (70-105); Potassium 4.5 mmol/L (3.5-5.1); Protein, Total 7.1 g/dL (6.0-8.3); Sodium 141 mmol/L (136-145)
[2021-03-01 07:39] LABS: MDiff Complete? YES
[2021-03-01 07:42] LABS: Band 5 % (5-11); Eosinophils 1 % (0-10); Lymphocytes 11 % (21-51); Metamyelocyte 1 % (0-0); Monocytes 9 % (0-10); Myelocyte 1 % (0-0); Neutrophil 71 % (42-75)
[2021-03-01 07:43] LABS: Platelet Morphology Comment Appears Increased
[2021-03-01] MEDS ORDERED: VANCOMYCIN 1.75 GM in Sodium Chloride 0.9% 500 ML IVPB SCH (10:00)
[2021-03-01] MEDS ORDERED: Vancomycin 1 GM in Premix Bag 1 BAG IVPB SCH ×2 (10:00→21:00)
[2021-03-01] MEDS ORDERED: HOLD VANCOMYCIN FOR LEVEL >20 FS SCH (10:00)
[2021-03-01] MEDS ORDERED: Vancomycin HCl 500 MG in Sodium Chloride 0.9% 100 ML IVPB SCH (10:00)
[2021-03-01] MEDS ORDERED: Vancomycin HCl 750 MG in Sodium Chloride 0.9% 250 ML 250 ML IVPB SCH (10:00)
[2021-03-01] MEDS ORDERED: Vancomycin HCl 1.25 GM in Sodium Chloride 0.9% 250 ML 250 ML IVPB SCH (10:00)
[2021-03-01] MEDS: Sevelamer Carbonate 800 MG TAB PO SCH ×3 (10:01→16:50)
[2021-03-01] MEDS: Aspirin 81 mg Enteric Coated Tablet PO SCH (10:01)
[2021-03-01] MEDS: Benzonatate 100 MG CAP PO SCH ×3 (10:01→21:41)
[2021-03-01] MEDS: Famotidine 20 MG TAB PO SCH (10:02)
[2021-03-01] MEDS: Metoprolol Tartrate 25 MG TAB PO SCH ×2 (10:02→21:41)
[2021-03-01] MEDS: Lantus 1000 UNITS/10 ML VIAL SC SCH ×2 (10:02→21:43)
[2021-03-01] MEDS: guaiFENesin ER 600 MG TAB PO SCH ×2 (10:02→21:41)
[2021-03-01] MEDS: EPOETIN ALFA-EPBX (ESRD) 3,000 UNIT/ML VIAL SC SCH (10:02)
[2021-03-01] MEDS: EPOETIN ALFA-EPBX (ESRD) 2,000 UNIT/ML VIAL SC SCH (10:03)
[2021-03-01] MEDS ORDERED: Piperacillin/Tazobactam 3.375 GM in Sodium Chloride 0.9% 100 ML IVPB SCH ×4 (10:15→16:15)
[2021-03-01] MEDS: Ascorbic Acid 500 mg Chewable Tablet PO SCH (15:14)
[2021-03-01] MEDS: Enoxaparin Sodium 30 MG/0.3 ML SYRINGE SC SCH (15:15)
[2021-03-01] MEDS: Ferrous Sulfate 325 MG TAB PO SCH (15:15)
[2021-03-01] MEDS: Folic Acid/Vit B Comp W-C PO SCH (15:15)
[2021-03-01] MEDS: Polyethylene Glycol 3350 17 GM Packet PO SCH (15:15)
[2021-03-01] MEDS: Ergocalciferol 1.25 MG(50,000 UNITS) CAP PO SCH (15:15)
[2021-03-01] MEDS: Cholecalciferol 1,000 UNITS (25 MCG) TAB PO SCH (15:15)
[2021-03-01] MEDS: Sodium Bicarbonate Tab 325 MG TAB PO SCH ×3 (15:16→21:41)
[2021-03-01] MEDS: Micafungin 100 MG in Sodium Chloride 0.9% 100 ML IVPB SCH (18:14)
[2021-03-01] MEDS: Piperacillin/Tazobactam 3.375 GM in Sodium Chloride 0.9% 100 ML IVPB SCH (21:40)
[2021-03-01] MEDS: Atorvastatin Calcium 20 MG TAB PO SCH (21:41)
[2021-03-01] MEDS: HumaLOG 300 UNITS/3 ML VIAL SC PRN (21:42)
[2021-03-02] MEDS: Nicotine 21 MG PATCH TD SCH (00:06)
[2021-03-02 05:03] LABS: Hemoglobin 7.8 g/dL (12.0-15.5); Mean Corpuscular HGB CONC 30.2 g/dL (32.0-36.0); Mean Corpuscular Hemoglobin 28.9 pg (27.0-33.0); Mean Corpuscular Volume 95.6 fl (81.6-98.3); Mean Platelet Volume 8.7 fl (7.4-10.4); Platelet Count 441 10x3/uL (150-450); RBC Distribution Width 16.7 % (11.5-14.5); White Blood Cell (WBC) Count 21.1 10x3/uL (3.5-10.5)
[2021-03-02 05:24] LABS: ALT (SGPT) 38 U/L (8-55); AST (SGOT) 30 U/L (5-34); Albumin 2.8 g/dL (3.5-5.0); Alkaline Phosphatase 225 U/L (40-110); Anion Gap 21 mmol/L (10-20); BUN (Urea Nitrogen) 17 mg/dL (9.8-20.1); Bilirubin, Total 0.4 mg/dL (0.2-1.2); Calc. Creatinine Clearance 24 mL/min (70-130); Calcium 9.3 mg/dL (7.8-10.44); Carbon Dioxide 22 mmol/L (22-29); Chloride 102 mmol/L (98-107); Globulin 3.5 g/dL (2.4-3.5); Glucose 119 mg/dL (70-105); Potassium 4.2 mmol/L (3.5-5.1); Protein, Total 6.3 g/dL (6.0-8.3); Sodium 141 mmol/L (136-145)
[2021-03-02 05:47] LABS: MDiff Complete? YES
[2021-03-02 06:21] LABS: Band 10 % (5-11); Eosinophils 2 % (0-10); Lymphocytes 8 % (21-51); Monocytes 12 % (0-10); Neutrophil 68 % (42-75)
[2021-03-02 06:22] LABS: Platelet Morphology Comment Appears Adequate; RBC Morphology Normal
[2021-03-02] MEDS: Piperacillin/Tazobactam 3.375 GM in Sodium Chloride 0.9% 100 ML IVPB SCH ×2 (09:00→20:28)
[2021-03-02] MEDS: Enoxaparin Sodium 30 MG/0.3 ML SYRINGE SC SCH (09:01)
[2021-03-02] MEDS: Polyethylene Glycol 3350 17 GM Packet PO SCH (09:01)
[2021-03-02] MEDS: Lantus 1000 UNITS/10 ML VIAL SC SCH ×2 (09:02→21:51)
[2021-03-02] MEDS: Sodium Bicarbonate Tab 325 MG TAB PO SCH ×3 (09:07→21:49)
[2021-03-02] MEDS: Sevelamer Carbonate 800 MG TAB PO SCH ×3 (09:08→17:14)
[2021-03-02] MEDS: Folic Acid/Vit B Comp W-C PO SCH (09:08)
[2021-03-02] MEDS: Benzonatate 100 MG CAP PO SCH ×3 (09:09→21:49)
[2021-03-02] MEDS: Ascorbic Acid 500 mg Chewable Tablet PO SCH (09:09)
[2021-03-02] MEDS: Cholecalciferol 1,000 UNITS (25 MCG) TAB PO SCH (09:10)
[2021-03-02] MEDS: guaiFENesin ER 600 MG TAB PO SCH ×2 (09:10→21:49)
[2021-03-02] MEDS: Ferrous Sulfate 325 MG TAB PO SCH (09:10)
[2021-03-02] MEDS: Metoprolol Tartrate 25 MG TAB PO SCH ×2 (09:11→21:51)
[2021-03-02] MEDS: Aspirin 81 mg Enteric Coated Tablet PO SCH (09:11)
[2021-03-02] MEDS: Famotidine 20 MG TAB PO SCH (09:11)
[2021-03-02] MEDS: HumaLOG 300 UNITS/3 ML VIAL SC PRN ×2 (13:01→17:13)
[2021-03-02] MEDS ORDERED: Heparin 10,000 UNITS/ 10 ML VIAL SLOW IVP PRN ×3 (13:41→13:52)
[2021-03-02] MEDS: Micafungin 100 MG in Sodium Chloride 0.9% 100 ML IVPB SCH (17:12)
[2021-03-02] MEDS: Atorvastatin Calcium 20 MG TAB PO SCH (21:49)
[2021-03-03] MEDS: Nicotine 21 MG PATCH TD SCH (00:08)
[2021-03-03 06:01] LABS: Mean Corpuscular HGB CONC 30.4 g/dL (32.0-36.0); Mean Corpuscular Hemoglobin 29.7 pg (27.0-33.0); Mean Corpuscular Volume 97.5 fl (81.6-98.3); Mean Platelet Volume 8.7 fl (7.4-10.4); Platelet Count 463 10x3/uL (150-450); Red Blood Cell (RBC) Count 2.36 10x6/uL (3.90-5.03); Vancomycin, Random 20.9 ug/mL (See Comment); White Blood Cell (WBC) Count 25.7 10x3/uL (3.5-10.5)
[2021-03-03 06:13] LABS: ALT (SGPT) 34 U/L (8-55); AST (SGOT) 20 U/L (5-34); Albumin 2.7 g/dL (3.5-5.0); Alkaline Phosphatase 211 U/L (40-110); Anion Gap 23 mmol/L (10-20); BUN (Urea Nitrogen) 41 mg/dL (9.8-20.1); Bilirubin, Total 0.3 mg/dL (0.2-1.2); Calc. Creatinine Clearance 15 mL/min (70-130); Calcium 9.4 mg/dL (7.8-10.44); Carbon Dioxide 22 mmol/L (22-29); Chloride 100 mmol/L (98-107); Globulin 3.5 g/dL (2.4-3.5); Glucose 143 mg/dL (70-105); Potassium 4.3 mmol/L (3.5-5.1); Protein, Total 6.2 g/dL (6.0-8.3); Sodium 141 mmol/L (136-145)
[2021-03-03 06:24] LABS: MDiff Complete? YES
[2021-03-03 06:25] LABS: Platelet Morphology Comment Appears Increased; RBC Morphology Normal
[2021-03-03 06:27] LABS: Band 12 % (5-11); Lymphocytes 11 % (21-51); Monocytes 11 % (0-10); Neutrophil 66 % (42-75)
[2021-03-03] MEDS: Sevelamer Carbonate 800 MG TAB PO SCH ×3 (10:43→16:58)
[2021-03-03] MEDS: Piperacillin/Tazobactam 3.375 GM in Sodium Chloride 0.9% 100 ML IVPB SCH ×2 (11:56→16:59)
[2021-03-03] MEDS: Enoxaparin Sodium 30 MG/0.3 ML SYRINGE SC SCH (11:56)
[2021-03-03] MEDS: Lantus 1000 UNITS/10 ML VIAL SC SCH ×2 (11:57→22:28)
[2021-03-03] MEDS: Ascorbic Acid 500 mg Chewable Tablet PO SCH (11:58)
[2021-03-03] MEDS: Metoprolol Tartrate 25 MG TAB PO SCH ×2 (11:59→22:27)
[2021-03-03] MEDS: Cholecalciferol 1,000 UNITS (25 MCG) TAB PO SCH (12:00)
[2021-03-03] MEDS: Folic Acid/Vit B Comp W-C PO SCH (12:00)
[2021-03-03] MEDS: Aspirin 81 mg Enteric Coated Tablet PO SCH (12:00)
[2021-03-03] MEDS: Ferrous Sulfate 325 MG TAB PO SCH (12:01)
[2021-03-03] MEDS: Sodium Bicarbonate Tab 325 MG TAB PO SCH ×3 (12:01→22:27)
[2021-03-03] MEDS: Famotidine 20 MG TAB PO SCH (12:01)
[2021-03-03] MEDS: Benzonatate 100 MG CAP PO SCH ×3 (12:01→22:27)
[2021-03-03] MEDS: EPOETIN ALFA-EPBX (ESRD) 3,000 UNIT/ML VIAL SC SCH (12:02)
[2021-03-03] MEDS: EPOETIN ALFA-EPBX (ESRD) 2,000 UNIT/ML VIAL SC SCH (12:02)
[2021-03-03] MEDS: Polyethylene Glycol 3350 17 GM Packet PO SCH (12:03)
[2021-03-03] MEDS: guaiFENesin ER 600 MG TAB PO SCH ×2 (12:06→22:27)
[2021-03-03] MEDS: Micafungin 100 MG in Sodium Chloride 0.9% 100 ML IVPB SCH (16:58)
[2021-03-03] MEDS: Atorvastatin Calcium 20 MG TAB PO SCH (22:27)
[2021-03-04] MEDS: Nicotine 21 MG PATCH TD SCH ×2 (00:10→23:50)
[2021-03-04] MEDS: Acetaminophen 325 MG TAB PO PRN (01:27)
[2021-03-04] MEDS: Piperacillin/Tazobactam 3.375 GM in Sodium Chloride 0.9% 100 ML IVPB SCH ×3 (01:27→23:50)
[2021-03-04 05:19] LABS: ALT (SGPT) 29 U/L (8-55); AST (SGOT) 15 U/L (5-34); Albumin 2.6 g/dL (3.5-5.0); Alkaline Phosphatase 200 U/L (40-110); Anion Gap 18 mmol/L (10-20); BUN (Urea Nitrogen) 21 mg/dL (9.8-20.1); Bilirubin, Total 0.2 mg/dL (0.2-1.2); Calc. Creatinine Clearance 27 mL/min (70-130); Calcium 8.9 mg/dL (7.8-10.44); Carbon Dioxide 25 mmol/L (22-29); Chloride 102 mmol/L (98-107); Globulin 3.4 g/dL (2.4-3.5); Glucose 181 mg/dL (70-105); Potassium 3.6 mmol/L (3.5-5.1); Sodium 141 mmol/L (136-145)
[2021-03-04] MEDS: guaiFENesin ER 600 MG TAB PO SCH ×2 (09:09→22:33)
[2021-03-04] MEDS: Ascorbic Acid 500 mg Chewable Tablet PO SCH (09:09)
[2021-03-04] MEDS: Cholecalciferol 1,000 UNITS (25 MCG) TAB PO SCH (09:09)
[2021-03-04] MEDS: Sodium Bicarbonate Tab 325 MG TAB PO SCH ×3 (09:09→22:37)
[2021-03-04] MEDS: Benzonatate 100 MG CAP PO SCH ×3 (09:09→22:33)
[2021-03-04] MEDS: Folic Acid/Vit B Comp W-C PO SCH (09:09)
[2021-03-04] MEDS: Aspirin 81 mg Enteric Coated Tablet PO SCH (09:09)
[2021-03-04] MEDS: Sevelamer Carbonate 800 MG TAB PO SCH ×3 (09:09→17:07)
[2021-03-04] MEDS: Metoprolol Tartrate 25 MG TAB PO SCH ×2 (09:09→22:37)
[2021-03-04] MEDS: Enoxaparin Sodium 30 MG/0.3 ML SYRINGE SC SCH (09:10)
[2021-03-04] MEDS: Lantus 1000 UNITS/10 ML VIAL SC SCH ×2 (09:10→22:36)
[2021-03-04] MEDS: HumaLOG 300 UNITS/3 ML VIAL SC PRN ×3 (09:10→17:07)
[2021-03-04] MEDS: Famotidine 20 MG TAB PO SCH (09:26)
[2021-03-04] MEDS: Polyethylene Glycol 3350 17 GM Packet PO SCH (09:26)
[2021-03-04] MEDS: Ferrous Sulfate 325 MG TAB PO SCH (09:26)
[2021-03-04] MEDS: Micafungin 100 MG in Sodium Chloride 0.9% 100 ML IVPB SCH (17:06)
[2021-03-04] MEDS: Atorvastatin Calcium 20 MG TAB PO SCH (22:33)
[2021-03-05 08:54] LABS: ALT (SGPT) 22 U/L (8-55); AST (SGOT) 12 U/L (5-34); Albumin 2.2 g/dL (3.5-5.0); Alkaline Phosphatase 179 U/L (40-110); Anion Gap 14 mmol/L (10-20); BUN (Urea Nitrogen) 27 mg/dL (9.8-20.1); Bilirubin, Total 0.2 mg/dL (0.2-1.2); Calc. Creatinine Clearance 18 mL/min (70-130); Calcium 9.1 mg/dL (7.8-10.44); Carbon Dioxide 24 mmol/L (22-29); Chloride 90 mmol/L (98-107); Globulin 3.5 g/dL (2.4-3.5); Glucose 109 mg/dL (70-105); Potassium 3.1 mmol/L (3.5-5.1); Protein, Total 5.7 g/dL (6.0-8.3); Sodium 125 mmol/L (136-145)
[2021-03-05 08:55] LABS: Hemoglobin 7.1 g/dL (12.0-15.5); Mean Corpuscular HGB CONC 31.3 g/dL (32.0-36.0); Mean Corpuscular Hemoglobin 29.7 pg (27.0-33.0); Mean Platelet Volume 8.8 fl (7.4-10.4); Platelet Count 453 10x3/uL (150-450); RBC Distribution Width 16.8 % (11.5-14.5); Red Blood Cell (RBC) Count 2.39 10x6/uL (3.90-5.03); White Blood Cell (WBC) Count 24.4 10x3/uL (3.5-10.5)
[2021-03-05] MEDS: Sevelamer Carbonate 800 MG TAB PO SCH ×3 (09:17→16:46)
[2021-03-05] MEDS: Famotidine 20 MG TAB PO SCH (09:17)
[2021-03-05] MEDS: Enoxaparin Sodium 30 MG/0.3 ML SYRINGE SC SCH (09:17)
[2021-03-05] MEDS: guaiFENesin ER 600 MG TAB PO SCH ×2 (09:17→21:04)
[2021-03-05] MEDS: Cholecalciferol 1,000 UNITS (25 MCG) TAB PO SCH (09:17)
[2021-03-05] MEDS: Aspirin 81 mg Enteric Coated Tablet PO SCH (09:18)
[2021-03-05] MEDS: Metoprolol Tartrate 25 MG TAB PO SCH ×2 (09:18→21:04)
[2021-03-05] MEDS: Ferrous Sulfate 325 MG TAB PO SCH (09:18)
[2021-03-05] MEDS: Sodium Bicarbonate Tab 325 MG TAB PO SCH ×3 (09:18→21:04)
[2021-03-05] MEDS: Ascorbic Acid 500 mg Chewable Tablet PO SCH (09:18)
[2021-03-05] MEDS: Benzonatate 100 MG CAP PO SCH ×3 (09:18→21:04)
[2021-03-05] MEDS: Folic Acid/Vit B Comp W-C PO SCH (09:18)
[2021-03-05] MEDS: Lantus 1000 UNITS/10 ML VIAL SC SCH ×2 (09:19→21:04)
[2021-03-05] MEDS: Polyethylene Glycol 3350 17 GM Packet PO SCH (09:30)
[2021-03-05] MEDS: Piperacillin/Tazobactam 3.375 GM in Sodium Chloride 0.9% 100 ML IVPB SCH ×2 (12:19→23:33)
[2021-03-05] MEDS ORDERED: Potassium Chloride 20 MEQ TAB PO SCH (15:00)
[2021-03-05 15:23] LABS: Anion Gap 21 mmol/L (10-20); BUN (Urea Nitrogen) 30 mg/dL (9.8-20.1); Calc. Creatinine Clearance 17 mL/min (70-130); Calcium 8.7 mg/dL (7.8-10.44); Carbon Dioxide 20 mmol/L (22-29); Chloride 101 mmol/L (98-107); Glucose 179 mg/dL (70-105); Potassium 3.7 mmol/L (3.5-5.1); Sodium 138 mmol/L (136-145)
[2021-03-05] MEDS: Micafungin 100 MG in Sodium Chloride 0.9% 100 ML IVPB SCH (16:46)
[2021-03-05] MEDS: HumaLOG 300 UNITS/3 ML VIAL SC PRN ×2 (17:34→21:05)
[2021-03-05] MEDS: Atorvastatin Calcium 20 MG TAB PO SCH (21:03)
[2021-03-05] MEDS: Nicotine 21 MG PATCH TD SCH (23:33)
[2021-03-06 06:38] LABS: Hemoglobin 6.4 g/dL (12.0-15.5); Mean Corpuscular HGB CONC 30.8 g/dL (32.0-36.0); Mean Corpuscular Hemoglobin 28.8 pg (27.0-33.0); Mean Corpuscular Volume 93.7 fl (81.6-98.3); Mean Platelet Volume 8.6 fl (7.4-10.4); Platelet Count 403 10x3/uL (150-450); Red Blood Cell (RBC) Count 2.22 10x6/uL (3.90-5.03); White Blood Cell (WBC) Count 26.1 10x3/uL (3.5-10.5)
[2021-03-06 07:05] LABS: Vancomycin, Random 10.2 ug/mL (See Comment)
[2021-03-06 08:34] LABS: Hemoglobin 6.6 g/dL (12.0-15.5); Mean Corpuscular HGB CONC 30.8 g/dL (32.0-36.0); Mean Corpuscular Hemoglobin 28.8 pg (27.0-33.0); Mean Corpuscular Volume 93.4 fl (81.6-98.3); Mean Platelet Volume 8.2 fl (7.4-10.4); Platelet Count 371 10x3/uL (150-450); RBC Distribution Width 16.9 % (11.5-14.5); Red Blood Cell (RBC) Count 2.29 10x6/uL (3.90-5.03); White Blood Cell (WBC) Count 26.3 10x3/uL (3.5-10.5)
[2021-03-06 08:59] LABS: Iron 26 ug/dL (50-170); Iron Binding Capacity, Total 128 mcg/dL (265-497)
[2021-03-06] MEDS: Benzonatate 100 MG CAP PO SCH ×3 (10:25→20:30)
[2021-03-06] MEDS: Sevelamer Carbonate 800 MG TAB PO SCH ×3 (10:25→18:09)
[2021-03-06] MEDS: Polyethylene Glycol 3350 17 GM Packet PO SCH (10:26)
[2021-03-06] MEDS: Sodium Bicarbonate Tab 325 MG TAB PO SCH ×3 (10:26→20:31)
[2021-03-06] MEDS: Lantus 1000 UNITS/10 ML VIAL SC SCH ×2 (11:21→20:51)
[2021-03-06] MEDS: Metoprolol Tartrate 25 MG TAB PO SCH ×2 (11:57→20:30)
[2021-03-06] MEDS: guaiFENesin ER 600 MG TAB PO SCH ×2 (11:57→20:42)
[2021-03-06] MEDS: Aspirin 81 mg Enteric Coated Tablet PO SCH (11:57)
[2021-03-06] MEDS: Folic Acid/Vit B Comp W-C PO SCH (11:57)
[2021-03-06] MEDS: Ascorbic Acid 500 mg Chewable Tablet PO SCH (11:57)
[2021-03-06] MEDS: Cholecalciferol 1,000 UNITS (25 MCG) TAB PO SCH (11:58)
[2021-03-06] MEDS: Famotidine 20 MG TAB PO SCH (11:58)
[2021-03-06] MEDS: Ferrous Sulfate 325 MG TAB PO SCH (11:58)
[2021-03-06] MEDS: Enoxaparin Sodium 30 MG/0.3 ML SYRINGE SC SCH (12:00)
[2021-03-06] MEDS: EPOETIN ALFA-EPBX (ESRD) 3,000 UNIT/ML VIAL SC SCH (12:01)
[2021-03-06] MEDS: EPOETIN ALFA-EPBX (ESRD) 2,000 UNIT/ML VIAL SC SCH (12:01)
[2021-03-06] MEDS ORDERED: Vancomycin HCl 750 MG in Sodium Chloride 0.9% 250 ML 250 ML IVPB SCH (15:00)
[2021-03-06] MEDS: Piperacillin/Tazobactam 3.375 GM in Sodium Chloride 0.9% 100 ML IVPB SCH ×2 (18:09→20:55)
[2021-03-06] MEDS: Micafungin 100 MG in Sodium Chloride 0.9% 100 ML IVPB SCH (18:10)
[2021-03-06] MEDS: Atorvastatin Calcium 20 MG TAB PO SCH (20:30)
[2021-03-06] MEDS: HumaLOG 300 UNITS/3 ML VIAL SC PRN (20:52)
[2021-03-06] MEDS: Nicotine 21 MG PATCH TD SCH (23:40)
[2021-03-07] MEDS ORDERED: Metoprolol Tartrate 5 MG/5 ML VIAL IVP PRN (00:32)
[2021-03-07] MEDS ORDERED: Lorazepam 2 MG/ML VIAL ONE (01:11)
[2021-03-07] MEDS ORDERED: Lorazepam 2 MG/ML VIAL SLOW IVP SCH (01:15)
[2021-03-07] MEDS ORDERED: Fentanyl 100 MCG/2 ML VIAL ONE (02:07)
[2021-03-07] MEDS ORDERED: Fentanyl 100 MCG/2 ML VIAL SLOW IVP SCH (02:30)
[2021-03-07] MEDS: fentaNYL Citrate-0.9 % NaCl/PF 100 ML IVPB SCH (02:48)
[2021-03-07 02:59] LABS: Actual Bicarbonate (HCO3a) 27.3 mEq/L (22-28); Base Excess (BEa) -0.3 mEq/L (-2.0 to +3.0); CO2 Tension 60.2 mmHg (35.0-45.0); Calcium, Ionized (arterial) 1.15 mmol/L (1.12-1.30); Carboxyhemoglobin (COHb) 0.2 gm% (0.0-3.0); Hemoglobin (Hb) 10.1 g/dL (12.0-16.0); O2 Tension (PaO2), arterial 48.6 mmHg (80.0-100.0); Potassium - ABG Lab 4.4 mmol/L (3.70-5.30); Puncture Site RRA; pH, Arterial 7.27 (7.35-7.45)
[2021-03-07 03:19] LABS: ALT (SGPT) 19 U/L (8-55); AST (SGOT) 17 U/L (5-34); Albumin 2.7 g/dL (3.5-5.0); Alkaline Phosphatase 236 U/L (40-110); Anion Gap 17 mmol/L (10-20); BUN (Urea Nitrogen) 19 mg/dL (9.8-20.1); Bilirubin, Total 0.4 mg/dL (0.2-1.2); Calc. Creatinine Clearance 27 mL/min (70-130); Calcium 8.3 mg/dL (7.8-10.44); Carbon Dioxide 26 mmol/L (22-29); Chloride 103 mmol/L (98-107); Globulin 3.6 g/dL (2.4-3.5); Glucose 182 mg/dL (70-105); Potassium 4.4 mmol/L (3.5-5.1); Protein, Total 6.3 g/dL (6.0-8.3); Sodium 142 mmol/L (136-145)
[2021-03-07 03:20] LABS: Hemoglobin 9.1 g/dL (12.0-15.5); Mean Corpuscular HGB CONC 31.2 g/dL (32.0-36.0); Mean Corpuscular Hemoglobin 29.3 pg (27.0-33.0); Mean Corpuscular Volume 93.9 fl (81.6-98.3); Mean Platelet Volume 8.4 fl (7.4-10.4); Platelet Count 450 10x3/uL (150-450); RBC Distribution Width 18.3 % (11.5-14.5); Red Blood Cell (RBC) Count 3.11 10x6/uL (3.90-5.03); White Blood Cell (WBC) Count 35.4 10x3/uL (3.5-10.5)
[2021-03-07 03:21] LABS: MDiff Complete? YES
[2021-03-07 03:24] LABS: Band 16 % (5-11); Lymphocytes 2 % (21-51); Metamyelocyte 1 % (0-0); Monocytes 4 % (0-10); Neutrophil 77 % (42-75); Nucleated RBC 2 % (0)
[2021-03-07 03:26] LABS: Polychromasia SLIGHT = 2-3 cells (100X) (0-2/hpf)
[2021-03-07 03:27] LABS: Platelet Morphology Comment Appears Adequate
[2021-03-07 03:32] LABS: Actual Bicarbonate (HCO3a) 25.4 mEq/L (22-28); Calcium, Ionized (arterial) 1.17 mmol/L (1.12-1.30); Carboxyhemoglobin (COHb) 0.1 gm% (0.0-3.0); Hemoglobin (Hb) 10.2 g/dL (12.0-16.0); O2 Tension (PaO2), arterial 57.1 mmHg (80.0-100.0); Potassium - ABG Lab 4.3 mmol/L (3.70-5.30); Puncture Site RRA; pH, Arterial 7.22 (7.35-7.45)
[2021-03-07] MEDS ORDERED: Morphine 2 MG/ML VIAL SLOW IVP PRN (03:45)
[2021-03-07] MEDS ORDERED: Lorazepam 2 MG/ML VIAL SLOW IVP PRN (03:45)
[2021-03-07] MEDS ORDERED: Propofol BOLUS 1,000 MG/100 ML VIAL IV PRN (03:45)
[2021-03-07] MEDS ORDERED: Ventilator Sedation Protocol FS SCH (03:45)
[2021-03-07] MEDS ORDERED: Fentanyl BOLUS 250 ML IVPB PRN (03:45)
[2021-03-07] MEDS ORDERED: DISCONTINUE PREVIOUS NARCOTIC PAIN MEDICATIONS AND BENZODIAZEPINES FS SCH (03:45)
[2021-03-07] MEDS ORDERED: Ventilator Sedation Protocol 1 EACH FS SCH (04:00)
[2021-03-07] MEDS ORDERED: Acetaminophen 650 MG Suppository PR PRN (04:16)
[2021-03-07] MEDS: HumaLOG 300 UNITS/3 ML VIAL SC PRN ×2 (04:27→22:16)
[2021-03-07] MEDS: Propofol 1,000 MG/100 ML VIAL IV PRN ×5 (04:32→23:12)
[2021-03-07] MEDS: Norepinephrine 8 MG/0.9% NS 250 ML IVPB PRN ×4 (04:36→23:08)
[2021-03-07] MEDS: Piperacillin/Tazobactam 3.375 GM in Sodium Chloride 0.9% 100 ML IVPB SCH ×2 (05:09→17:42)
[2021-03-07 08:07] LABS: ALV-art Gradient 602.325 mmHg (0-20); Actual Bicarbonate (HCO3a) 25.4 mEq/L (22-28); Base Excess (BEa) -1.1 mEq/L (-2.0 to +3.0); CO2 Tension 51.1 mmHg (35.0-45.0); Calcium, Ionized (arterial) 1.16 mmol/L (1.12-1.30); Carboxyhemoglobin (COHb) 0.3 gm% (0.0-3.0); Hemoglobin (Hb) 9.9 g/dL (12.0-16.0); O2 Tension (PaO2), arterial 46.8 mmHg (80.0-100.0); Potassium - ABG Lab 4.1 mmol/L (3.70-5.30); Puncture Site RRA; pH, Arterial 7.31 (7.35-7.45)
[2021-03-07] MEDS: Benzonatate 100 MG CAP PO SCH ×3 (08:44→20:54)
[2021-03-07] MEDS: Lantus 1000 UNITS/10 ML VIAL SC SCH ×3 (08:44→20:55)
[2021-03-07] MEDS: Polyethylene Glycol 3350 17 GM Packet PO SCH (08:44)
[2021-03-07] MEDS: Sevelamer Carbonate 800 MG TAB PO SCH ×3 (08:44→15:15)
[2021-03-07 09:05] LABS: Hemoglobin 8.9 g/dL (12.0-15.5); Mean Corpuscular HGB CONC 30.5 g/dL (32.0-36.0); Mean Corpuscular Volume 95.1 fl (81.6-98.3); Mean Platelet Volume 8.8 fl (7.4-10.4); Platelet Count 481 10x3/uL (150-450); RBC Distribution Width 18.7 % (11.5-14.5); Red Blood Cell (RBC) Count 3.07 10x6/uL (3.90-5.03); White Blood Cell (WBC) Count 42.5 10x3/uL (3.5-10.5)
[2021-03-07 09:15] LABS: MDiff Complete? YES
[2021-03-07 09:23] LABS: Band 13 % (5-11); Lymphocytes 6 % (21-51); Monocytes 9 % (0-10); Neutrophil 72 % (42-75)
[2021-03-07 09:30] LABS: Hypochromia SLIGHT = 6-15 cells (100X) (0-5/hpf)
[2021-03-07 09:33] LABS: Polychromasia SLIGHT = 2-3 cells (100X) (0-2/hpf)
[2021-03-07 09:34] LABS: Platelet Morphology Comment Appears Increased
[2021-03-07] MEDS: Ferrous Sulfate 325 MG TAB PO SCH (09:57)
[2021-03-07] MEDS: Sodium Bicarbonate Tab 325 MG TAB PO SCH ×3 (09:57→20:53)
[2021-03-07] MEDS: Famotidine 20 MG TAB PO SCH (09:57)
[2021-03-07] MEDS: Aspirin 81 mg Enteric Coated Tablet PO SCH (09:58)
[2021-03-07] MEDS: Cholecalciferol 1,000 UNITS (25 MCG) TAB PO SCH (09:58)
[2021-03-07] MEDS: Ascorbic Acid 500 mg Chewable Tablet PO SCH (09:58)
[2021-03-07] MEDS: Metoprolol Tartrate 25 MG TAB PO SCH ×2 (09:59→20:56)
[2021-03-07] MEDS: guaiFENesin ER 600 MG TAB PO SCH ×2 (10:02→20:53)
[2021-03-07] MEDS: Vasopressin 20 UNIT, Admixture Fee 1 EACH in Sodium Chloride 0.9% 50 ML IV SCH ×3 (10:19→22:40)
[2021-03-07] MEDS: Enoxaparin Sodium 30 MG/0.3 ML SYRINGE SC SCH (10:25)
[2021-03-07] MEDS: Folic Acid/Vit B Comp W-C PO SCH (10:29)
[2021-03-07] MEDS ORDERED: Midazolam HCl 2 mg/2 ml Vial SLOW IVP PRN (11:31)
[2021-03-07] MEDS: Hydrocortisone Sod Succ/PF 100 mg/2 ml Vial IVP SCH ×2 (13:33→18:20)
[2021-03-07 14:21] LABS: Anion Gap 21 mmol/L (10-20); BUN (Urea Nitrogen) 24 mg/dL (9.8-20.1); Calc. Creatinine Clearance 22 mL/min (70-130); Carbon Dioxide 22 mmol/L (22-29); Chloride 102 mmol/L (98-107); Glucose 171 mg/dL (70-105); Potassium 5.3 mmol/L (3.5-5.1); Sodium 140 mmol/L (136-145)
[2021-03-07] MEDS ORDERED: Vecuronium 10 MG VIAL IVP PRN (15:17)
[2021-03-07] MEDS: Micafungin 100 MG in Sodium Chloride 0.9% 100 ML IVPB SCH (15:23)
[2021-03-07 18:09] LABS: CMV log 10 Quant 2.814 (.)
[2021-03-07] MEDS: Atorvastatin Calcium 20 MG TAB PO SCH (20:53)
[2021-03-07] MEDS: Nicotine 21 MG PATCH TD SCH (22:20)
[2021-03-08] MEDS: Hydrocortisone Sod Succ/PF 100 mg/2 ml Vial IVP SCH ×4 (01:25→18:36)
[2021-03-08] MEDS: HumaLOG 300 UNITS/3 ML VIAL SC PRN ×3 (04:01→22:43)
[2021-03-08 04:15] LABS: Vancomycin, Random 13.4 ug/mL (See Comment)
[2021-03-08] MEDS: Norepinephrine 8 MG/0.9% NS 250 ML IVPB PRN ×3 (04:31→13:28)
[2021-03-08] MEDS: Propofol 1,000 MG/100 ML VIAL IV PRN ×4 (04:31→17:27)
[2021-03-08] MEDS: Piperacillin/Tazobactam 3.375 GM in Sodium Chloride 0.9% 100 ML IVPB SCH ×2 (05:30→17:24)
[2021-03-08 07:28] LABS: ALV-art Gradient 602.625 mmHg (0-20); Actual Bicarbonate (HCO3a) 21.1 mEq/L (22-28); Base Excess (BEa) -6.6 mEq/L (-2.0 to +3.0); CO2 Tension 53.9 mmHg (35.0-45.0); Calcium, Ionized (arterial) 1.12 mmol/L (1.12-1.30); Carboxyhemoglobin (COHb) 0.1 gm% (0.0-3.0); Hemoglobin (Hb) 8.7 g/dL (12.0-16.0); Potassium - ABG Lab 4.8 mmol/L (3.70-5.30); Puncture Site LRA; pH, Arterial 7.21 (7.35-7.45)
[2021-03-08 08:03] LABS: ALT (SGPT) 124 U/L (8-55); AST (SGOT) 186 U/L (5-34); Albumin 2.5 g/dL (3.5-5.0); Alkaline Phosphatase 214 U/L (40-110); Anion Gap 25 mmol/L (10-20); BUN (Urea Nitrogen) 31 mg/dL (9.8-20.1); Bilirubin, Total 0.3 mg/dL (0.2-1.2); Calc. Creatinine Clearance 17 mL/min (70-130); Carbon Dioxide 18 mmol/L (22-29); Chloride 104 mmol/L (98-107); Globulin 4.5 g/dL (2.4-3.5); Glucose 273 mg/dL (70-105); Potassium 5.2 mmol/L (3.5-5.1); Sodium 142 mmol/L (136-145)
[2021-03-08] MEDS: Benzonatate 100 MG CAP PO SCH ×3 (08:28→21:03)
[2021-03-08] MEDS: Sevelamer Carbonate 800 MG TAB PO SCH ×3 (08:28→16:53)
[2021-03-08 08:47] LABS: Hemoglobin 7.7 g/dL (12.0-15.5); Mean Corpuscular Hemoglobin 29.5 pg (27.0-33.0); Mean Platelet Volume 8.7 fl (7.4-10.4); Platelet Count 469 10x3/uL (150-450); RBC Distribution Width 18.6 % (11.5-14.5); Red Blood Cell (RBC) Count 2.61 10x6/uL (3.90-5.03); White Blood Cell (WBC) Count 48.5 10x3/uL (3.5-10.5)
[2021-03-08] MEDS: Famotidine 20 MG TAB PO SCH (08:49)
[2021-03-08] MEDS: Ergocalciferol 1.25 MG(50,000 UNITS) CAP PO SCH (08:49)
[2021-03-08] MEDS: Folic Acid/Vit B Comp W-C PO SCH (08:49)
[2021-03-08] MEDS: Ascorbic Acid 500 mg Chewable Tablet PO SCH (08:49)
[2021-03-08] MEDS: Cholecalciferol 1,000 UNITS (25 MCG) TAB PO SCH (08:49)
[2021-03-08] MEDS: Sodium Bicarbonate Tab 325 MG TAB PO SCH ×3 (08:50→21:07)
[2021-03-08] MEDS: Aspirin 81 mg Enteric Coated Tablet PO SCH (08:50)
[2021-03-08] MEDS: guaiFENesin ER 600 MG TAB PO SCH ×2 (08:50→21:07)
[2021-03-08] MEDS: Ferrous Sulfate 325 MG TAB PO SCH (08:50)
[2021-03-08] MEDS ORDERED: Epoetin (ESRD) 10,000 UNITS/ML VIAL SC SCH (09:00)
[2021-03-08] MEDS: fentaNYL Citrate-0.9 % NaCl/PF 100 ML IVPB SCH (09:49)
[2021-03-08] MEDS: Enoxaparin Sodium 30 MG/0.3 ML SYRINGE SC SCH (10:33)
[2021-03-08] MEDS: Lantus 1000 UNITS/10 ML VIAL SC SCH ×2 (10:34→21:07)
[2021-03-08] MEDS: Metoprolol Tartrate 25 MG TAB PO SCH ×2 (10:34→21:04)
[2021-03-08] MEDS: Polyethylene Glycol 3350 17 GM Packet PO SCH (10:35)
[2021-03-08] MEDS: Vasopressin 20 UNIT, Admixture Fee 1 EACH in Sodium Chloride 0.9% 50 ML IV SCH (10:41)
[2021-03-08] MEDS ORDERED: Vancomycin HCl 750 MG in Sodium Chloride 0.9% 250 ML 250 ML IVPB SCH (15:00)
[2021-03-08] MEDS: Micafungin 100 MG in Sodium Chloride 0.9% 100 ML IVPB SCH (15:06)
[2021-03-08] MEDS: Atorvastatin Calcium 20 MG TAB PO SCH (21:07)
[2021-03-08] MEDS: Nicotine 21 MG PATCH TD SCH (22:57)
[2021-03-09] MEDS: Propofol 1,000 MG/100 ML VIAL IV PRN ×5 (00:18→21:24)
[2021-03-09] MEDS: Hydrocortisone Sod Succ/PF 100 mg/2 ml Vial IVP SCH ×4 (01:39→19:48)
[2021-03-09] MEDS: fentaNYL Citrate-0.9 % NaCl/PF 100 ML IVPB SCH ×2 (02:26→19:49)
[2021-03-09] MEDS: HumaLOG 300 UNITS/3 ML VIAL SC PRN ×3 (04:08→17:44)
[2021-03-09 04:43] LABS: Hemoglobin 6.4 g/dL (12.0-15.5); Mean Corpuscular HGB CONC 31.1 g/dL (32.0-36.0); Mean Corpuscular Hemoglobin 28.8 pg (27.0-33.0); Mean Corpuscular Volume 92.8 fl (81.6-98.3); Mean Platelet Volume 8.8 fl (7.4-10.4); Platelet Count 371 10x3/uL (150-450); Red Blood Cell (RBC) Count 2.22 10x6/uL (3.90-5.03); White Blood Cell (WBC) Count 32.8 10x3/uL (3.5-10.5)
[2021-03-09 04:52] LABS: Albumin 2.4 g/dL (3.5-5.0); Anion Gap 22 mmol/L (10-20); BUN (Urea Nitrogen) 16 mg/dL (9.8-20.1); BUN/Creatinine Ratio 6.93; Calc. Creatinine Clearance 39 mL/min (70-130); Calcium 8.7 mg/dL (7.8-10.44); Carbon Dioxide 22 mmol/L (22-29); Chloride 99 mmol/L (98-107); Glucose 265 mg/dL (70-105); Phosphorus 3.9 mg/dL (2.3-4.7); Potassium 3.4 mmol/L (3.5-5.1); Sodium 140 mmol/L (136-145)
[2021-03-09] MEDS: Piperacillin/Tazobactam 3.375 GM in Sodium Chloride 0.9% 100 ML IVPB SCH ×2 (06:25→17:23)
[2021-03-09] MEDS: Sodium Bicarbonate Tab 325 MG TAB PO SCH ×3 (08:31→21:08)
[2021-03-09] MEDS: Polyethylene Glycol 3350 17 GM Packet PO SCH (08:31)
[2021-03-09] MEDS: Sevelamer Carbonate 800 MG TAB PO SCH ×3 (08:31→16:46)
[2021-03-09] MEDS: Famotidine 20 MG TAB PO SCH (08:32)
[2021-03-09] MEDS: Cholecalciferol 1,000 UNITS (25 MCG) TAB PO SCH (08:32)
[2021-03-09] MEDS: Ferrous Sulfate 325 MG TAB PO SCH (08:32)
[2021-03-09] MEDS: Folic Acid/Vit B Comp W-C PO SCH (08:32)
[2021-03-09] MEDS: guaiFENesin ER 600 MG TAB PO SCH ×2 (08:32→21:07)
[2021-03-09] MEDS: Aspirin 81 mg Enteric Coated Tablet PO SCH (08:32)
[2021-03-09] MEDS: Ascorbic Acid 500 mg Chewable Tablet PO SCH (08:32)
[2021-03-09] MEDS: Benzonatate 100 MG CAP PO SCH ×3 (08:33→21:07)
[2021-03-09] MEDS: Metoprolol Tartrate 25 MG TAB PO SCH ×2 (08:34→21:08)
[2021-03-09] MEDS: Lantus 1000 UNITS/10 ML VIAL SC SCH ×2 (08:50→21:07)
[2021-03-09] MEDS: Enoxaparin Sodium 30 MG/0.3 ML SYRINGE SC SCH (09:00)
[2021-03-09] MEDS: Micafungin 100 MG in Sodium Chloride 0.9% 100 ML IVPB SCH (15:14)
[2021-03-09] MEDS: Atorvastatin Calcium 20 MG TAB PO SCH (21:07)
[2021-03-09] MEDS: Nicotine 21 MG PATCH TD SCH (23:47)
[2021-03-10] MEDS: HumaLOG 300 UNITS/3 ML VIAL SC PRN ×4 (00:07→18:00)
[2021-03-10] MEDS: Hydrocortisone Sod Succ/PF 100 mg/2 ml Vial IVP SCH ×4 (01:18→20:25)
[2021-03-10] MEDS: Propofol 1,000 MG/100 ML VIAL IV PRN ×4 (02:49→19:15)
[2021-03-10 04:37] LABS: Albumin 2.3 g/dL (3.5-5.0); Anion Gap 18 mmol/L (10-20); BUN (Urea Nitrogen) 29 mg/dL (9.8-20.1); BUN/Creatinine Ratio 9.03; Calc. Creatinine Clearance 28 mL/min (70-130); Calcium 8.1 mg/dL (7.8-10.44); Carbon Dioxide 25 mmol/L (22-29); Chloride 99 mmol/L (98-107); Glucose 171 mg/dL (70-105); Phosphorus 4.3 mg/dL (2.3-4.7); Sodium 139 mmol/L (136-145)
[2021-03-10 04:39] LABS: Vancomycin, Random 15.3 ug/mL (See Comment)
[2021-03-10] MEDS: Piperacillin/Tazobactam 3.375 GM in Sodium Chloride 0.9% 100 ML IVPB SCH ×2 (05:56→18:02)
[2021-03-10] MEDS ORDERED: Potassium Bicarbonate/Cit Ac 20 MEQ TAB PER TUBE SCH (06:30)
[2021-03-10] MEDS: Benzonatate 100 MG CAP PO SCH ×3 (08:28→21:03)
[2021-03-10] MEDS ORDERED: EPOETIN ALFA-EPBX (ESRD) 10,000 UNIT/ML VIAL SC SCH (09:00)
[2021-03-10] MEDS: Sodium Bicarbonate Tab 325 MG TAB PO SCH ×3 (09:14→21:05)
[2021-03-10] MEDS: Sevelamer Carbonate 800 MG TAB PO SCH ×3 (09:15→18:01)
[2021-03-10] MEDS: Ferrous Sulfate 325 MG TAB PO SCH (09:15)
[2021-03-10] MEDS: guaiFENesin ER 600 MG TAB PO SCH ×2 (09:15→21:04)
[2021-03-10] MEDS: Polyethylene Glycol 3350 17 GM Packet PO SCH (09:15)
[2021-03-10] MEDS: Famotidine 20 MG TAB PO SCH (09:16)
[2021-03-10] MEDS: Cholecalciferol 1,000 UNITS (25 MCG) TAB PO SCH (09:16)
[2021-03-10] MEDS: Metoprolol Tartrate 25 MG TAB PO SCH ×2 (09:16→21:05)
[2021-03-10] MEDS: Ascorbic Acid 500 mg Chewable Tablet PO SCH (09:16)
[2021-03-10] MEDS: Aspirin 81 mg Enteric Coated Tablet PO SCH (09:16)
[2021-03-10] MEDS: Lantus 1000 UNITS/10 ML VIAL SC SCH ×2 (09:37→21:04)
[2021-03-10 11:19] LABS: Hemoglobin 6.9 g/dL (12.0-15.5); Mean Corpuscular HGB CONC 32.4 g/dL (32.0-36.0); Mean Corpuscular Hemoglobin 28.6 pg (27.0-33.0); Mean Corpuscular Volume 88.4 fl (81.6-98.3); Mean Platelet Volume 9.3 fl (7.4-10.4); Platelet Count 332 10x3/uL (150-450); RBC Distribution Width 17.7 % (11.5-14.5); Red Blood Cell (RBC) Count 2.41 10x6/uL (3.90-5.03)
[2021-03-10] MEDS: Enoxaparin Sodium 30 MG/0.3 ML SYRINGE SC SCH (12:45)
[2021-03-10] MEDS: fentaNYL Citrate-0.9 % NaCl/PF 100 ML IVPB SCH (13:08)
[2021-03-10] MEDS: Folic Acid/Vit B Comp W-C PO SCH (13:08)
[2021-03-10] MEDS: Micafungin 100 MG in Sodium Chloride 0.9% 100 ML IVPB SCH (15:24)
[2021-03-10] MEDS: Atorvastatin Calcium 20 MG TAB PO SCH (21:03)
[2021-03-10] MEDS: Nicotine 21 MG PATCH TD SCH (23:38)
[2021-03-11] MEDS: Propofol 1,000 MG/100 ML VIAL IV PRN ×3 (01:08→10:18)
[2021-03-11] MEDS: Hydrocortisone Sod Succ/PF 100 mg/2 ml Vial IVP SCH ×3 (01:24→12:39)
[2021-03-11] MEDS: fentaNYL Citrate-0.9 % NaCl/PF 100 ML IVPB SCH (05:19)
[2021-03-11 05:56] VITALS: BMI 34.3
[2021-03-11] MEDS: Piperacillin/Tazobactam 3.375 GM in Sodium Chloride 0.9% 100 ML IVPB SCH (06:18)
[2021-03-11] MEDS: Sevelamer Carbonate 800 MG TAB PO SCH ×2 (08:28→10:19)
[2021-03-11] MEDS: Aspirin 81 mg Enteric Coated Tablet PO SCH (08:29)
[2021-03-11] MEDS: Benzonatate 100 MG CAP PO SCH (08:29)
[2021-03-11] MEDS: Famotidine 20 MG TAB PO SCH (08:29)
[2021-03-11] MEDS: Cholecalciferol 1,000 UNITS (25 MCG) TAB PO SCH (08:29)
[2021-03-11] MEDS: Ascorbic Acid 500 mg Chewable Tablet PO SCH (08:29)
[2021-03-11] MEDS: Enoxaparin Sodium 30 MG/0.3 ML SYRINGE SC SCH (08:29)
[2021-03-11] MEDS: Lantus 1000 UNITS/10 ML VIAL SC SCH (08:30)
[2021-03-11] MEDS: guaiFENesin ER 600 MG TAB PO SCH (08:30)
[2021-03-11] MEDS: Polyethylene Glycol 3350 17 GM Packet PO SCH (08:30)
[2021-03-11] MEDS: Metoprolol Tartrate 25 MG TAB PO SCH (08:30)
[2021-03-11] MEDS: Ferrous Sulfate 325 MG TAB PO SCH (08:30)
[2021-03-11] MEDS: Folic Acid/Vit B Comp W-C PO SCH (08:30)
[2021-03-11] MEDS: Sodium Bicarbonate Tab 325 MG TAB PO SCH (08:31)
[2021-03-11 08:45] VITALS: TEMP 97.8
[2021-03-11 12:33] VITALS: BP 122/76
[2021-03-11] MEDS ORDERED: Morphine 4 MG/ML VIAL SLOW IVP PRN (13:30)
[2021-03-11] MEDS ORDERED: Lorazepam 2 MG/ML VIAL SLOW IVP PRN (13:31)
== END 2021-03-11 16:00 | disposition hospice, inpatient (51) | DRG 870 ==
LOC: CSHERS 13:50 → CSHERHOLD 22:19 → CSHTELE 01-19 15:24 → CSHICU 01-22 14:52 → CSHTELE 02-03 01:10 → CSHICU 03-07 01:53 → CSHHOSPICE 03-11 15:58 → CSHERHOLD 03-11 15:59 → CSHHOSPICE 03-11 15:59 → UNDODISIN 03-13 10:15 → CSHERHOLD 03-13 10:20 → CSHHOSPICE 03-13 10:20
PROVIDERS: ADMIT Family Medicine; ATTEND Internal Medicine
PROC: 8E0ZXY6 Isolation (ICD-10-PCS; principal; 2021-01-18)
PROC: XW033H5 Introduction of Tocilizumab into Peripheral Vein, Percutaneous Approach, New Technology Group 5 (ICD-10-PCS; 2021-01-23)
PROC: 30233N1 Transfusion of Nonautologous Red Blood Cells into Peripheral Vein, Percutaneous Approach (ICD-10-PCS; 2021-01-24)
PROC: 06HY33Z Insertion of Infusion Device into Lower Vein, Percutaneous Approach (ICD-10-PCS; 2021-01-26)
PROC: 0JH63XZ Insertion of Tunneled Vascular Access Device into Chest Subcutaneous Tissue and Fascia, Percutaneous Approach (ICD-10-PCS; 2021-02-03)
PROC: 02HV33Z Insertion of Infusion Device into Superior Vena Cava, Percutaneous Approach (ICD-10-PCS; 2021-02-03)
PROC: B5181ZA Fluoroscopy of Superior Vena Cava using Low Osmolar Contrast, Guidance (ICD-10-PCS; 2021-02-03)
PROC: 5A1955Z Respiratory Ventilation, Greater than 96 Consecutive Hours (ICD-10-PCS; 2021-03-07)
PROC: 5A09557 Assistance with Respiratory Ventilation, Greater than 96 Consecutive Hours, Continuous Positive Airway Pressure (ICD-10-PCS; 2021-03-07)
PROC: 3E033XZ Introduction of Vasopressor into Peripheral Vein, Percutaneous Approach (ICD-10-PCS; 2021-03-07)
PROC: 0BH17EZ Insertion of Endotracheal Airway into Trachea, Via Natural or Artificial Opening (ICD-10-PCS; 2021-03-07)
DX: A41.89 Other specified sepsis (principal); U07.1 COVID-19; J12.82 Pneumonia due to coronavirus disease 2019; J96.01 Acute respiratory failure with hypoxia; G93.41 Metabolic encephalopathy; R65.21 Severe sepsis with septic shock; N17.0 Acute kidney failure with tubular necrosis; J15.9 Unspecified bacterial pneumonia; N18.6 End stage renal disease; I12.0 Hypertensive chronic kidney disease with stage 5 chronic kidney disease or end stage renal disease; E87.0 Hyperosmolality and hypernatremia; D62 Acute posthemorrhagic anemia; E87.1 Hypo-osmolality and hyponatremia; R04.89 Hemorrhage from other sites in respiratory passages; D63.1 Anemia in chronic kidney disease; E11.22 Type 2 diabetes mellitus with diabetic chronic kidney disease; Z66 Do not resuscitate; Z51.5 Encounter for palliative care; E11.65 Type 2 diabetes mellitus with hyperglycemia; F17.200 Nicotine dependence, unspecified, uncomplicated; R77.8 Other specified abnormalities of plasma proteins; R53.81 Other malaise; Z71.6 Tobacco abuse counseling; E86.0 Dehydration; K52.9 Noninfective gastroenteritis and colitis, unspecified; E11.21 Type 2 diabetes mellitus with diabetic nephropathy; Z78.1 Physical restraint status; E87.5 Hyperkalemia; E66.9 Obesity, unspecified; Z68.34 Body mass index [BMI] 34.0-34.9, adult; E55.9 Vitamin D deficiency, unspecified; E11.649 Type 2 diabetes mellitus with hypoglycemia without coma; J98.2 Interstitial emphysema; E87.6 Hypokalemia; Y95 Nosocomial condition; A41.9 Sepsis, unspecified organism
CPT/HCPCS: 36415; 36416; 36430; 36600; 51701; 71045; 71250; 71275; 76770; 80048; 80053; 80061; 80069; 80202; 81003; 81015; 82010; 82274; 82306; 82550; 82553; 82570; 82607; 82728; 82746; 82805; 83036; 83540; 83550; 83605; 83735; 83880; 83970; 84100; 84145; 84156; 84300; 84484; 84540; 85014; 85018; 85025; 85027; 85049; 85060; 85379; 85652; 85730; 86140; 86580; 86704; 86706; 86803; 86850; 86900; 86901; 87040; 87070; 87086; 87205; 87340; 87449; 87497; 87899; 90935; 93005; 93010; 93306; 94002; 94003; 94640; 94660; 94760; 96365; 96367; 96375; A4217; C1752; C9113; G0257; J0171; J0360; J0456; J0692; J0696; J1100; J1642; J1644; J1650; J1720; J1756; J1815; J1940; J2060; J2248; J2250; J2270; J2405; J2543; J2704; J2916; J2920; J2930; J3010; J3262; J3370; J3480; J3490; J7030; J7050; J7120; J7512; J7620; P9016; Q4081; Q5105; S0020; S0028; U0002